=== PATIENT | male | born 1955 | race Caucasian/White ===

== ENCOUNTER 2021-08-22 19:34 | Emergency (ER) | payer OTHER, SELFPAY ==
[2021-08-22 20:02] VITALS: BP 159/99; PULSE 70; RESP 20; TEMP 36.6; O2SAT 97
[2021-08-22 20:16] LABS: Basophils Percent Auto 0.1 % (0.2-1.2); Hematocrit 45.7 % (42.0-52.0); Hemoglobin 15.9 g/dL (14.0-18.0); Immature Granulocyte Absolute 0.03 K/mm3 (0.00-0.031); Immature Granulocyte Percent A 0.4 % (0-0.5); Lymphocytes Absolute Auto 0.66 K/mm3 (0.9-3.2); Lymphocytes Percent Auto 9.5 % (18.3-44.2); Mean Corpuscular HGB Conc 34.8 g/dl (32-36); Mean Corpuscular Hemoglobin 30.7 pg (26-34); Mean Corpuscular Volume 88.2 fl (80-100); Monocytes Absolute Auto 0.5 K/mm3 (0.1-0.6); Monocytes Percent Auto 6.5 % (2.6-8.5); Neutrophils Absolute Auto 5.8 K/mm3 (1.3-6.7); Neutrophils Percent Auto 83.5 % (45.5-73.1); Platelet Count Result 292 k/mm3 (150-375); Red Blood Count 5.18 M/mm3 (4.6-6.20); Red Cell Distribution Width 12.1 % (11.5-14.5)
[2021-08-22 20:25] LABS: Alanine Aminotransferase 17 U/L (4-50); Alkaline Phosphatase 74 U/L (38-126); Anion Gap 10 mmol/L (8-16); Aspartate Amino Transferase 25 U/L (17-59); Bilirubin,Total 0.8 mg/dL (0.2-1.3); Blood Urea Nitrogen 16 mg/dL (9-20); Calcium 8.2 mg/dL (8.4-10.2); Carbon Dioxide 21 mmol/L (22-30); Chloride 96 mmol/L (98-107); Estimated CRCL calculation 92 ml/min; Estimated Glomerular Filt Rate > 60; Glucose 155 mg/dL (65-110); Lipase 60 U/L (23-300); Potassium 3.7 mmol/L (3.4-5.0); Sodium 127 mmol/L (137-145)
--- NOTE | 2021-08-22 21:53 | PC.NURSE ---
Pt ambulatory to intake and this RN was currently in triage w/ pt, pt states Im leaving, 2 hours is long enough, I am not waiting any longer. If I get worse I will come back, I can lay around sick at home. This RN apologized to pt about the wait time, and he states Its fine, but I am leaving. Pt ambulated out w/ steady gait.
== END 2021-08-22 22:04 | disposition left against medical advice (07) ==
LOC: ANHED 21:55
PROVIDERS: Emergency Provider Emergency Medicine; PCP Internal Medicine
DX: R11.2 Nausea with vomiting, unspecified (principal)
CPT/HCPCS: 36415; 80053; 83690; 85025; 99199

== ENCOUNTER 2021-08-23 14:08 | Inpatient (IN) | payer MEDICARE, OTHER, SELFPAY ==
[2021-08-23] VITALS (9 sets, daily range): BP systolic 114–159; BP diastolic 63–89; PULSE 86–106; RESP 18–24; TEMP 36.4–36.7; O2SAT 95–100; BMI 29.7
--- NOTE | ~2021-08-23 | XR_ITS ---
EXAMINATION: XR chest 1V portable DATE: 08/23/2021 14:40 INDICATION: Shortness of breath. Dizziness. TECHNIQUE: A single frontal view of the chest was obtained. COMPARISON: CT abdomen and pelvis 09/13/2018 FINDINGS: The chest demonstrates clear lungs without pneumonia, pleural effusion, or pneumothorax. Th e heart size is normal. IMPRESSION: 1. No acute cardiopulmonary disease. Reviewed, dictated and finalized at location B.
--- NOTE | ~2021-08-23 | CT_ITS ---
EXAMINATION: CT abdomen pelvis w con DATE: 08/23/2021 15:50 INDICATION: Epigastric pain TECHNIQUE: Computed tomography (CT) of the abdomen and pelvis was performed with 100 mL Omnipaque-350 intravenous contrast. Automated exposure control and iterative reconstruction technique were employe d. The dose-length product was 1061.54 mGy-cm. COMPARISON: 09/13/2018 FINDINGS: Patchy centrilobular groundglass opacities in the basilar segments of the bilateral lower lobes which could represent aspiration and/or pneumonia. Heart size is normal. No pericardial or pleural effusio n. There are numerous subcentimeter hypodense cysts scattered throughout the liver and both kidneys. Larger 2.4 cm parapelvic cyst at the right renal hilum. Gallbladder, spleen, pancreas and bilateral a drenal glands are normal. There are multiple small scattered diverticula along the sigmoid and descen ding colon without adjacent inflammatory change to suggest diverticulitis. Small bowel and appendix a re normal. Bladder is normal. Postoperative change of prior left inguinal hernia repair with unchange d small amount of fat within the left inguinal canal. No free intraperitoneal gas or fluid. No pathol ogically enlarged abdominal or pelvic lymphadenopathy. Mild lumbar levocurvature with severe lower tammy mbar spondylosis. Mild bilateral hip osteoarthritis. IMPRESSION: 1. No acute intra-abdominal/pelvic process. 2. Diverticulosis. Reviewed, dictated and finalized at location A.
--- NOTE | ~2021-08-23 | XR_ITS ---
EXAMINATION: XR chest 1V portable EXAM DATE: 08/25/2021 05:54 INDICATION: Influenza TECHNIQUE: Portable AP frontal chest x-ray was obtained. Comparison is made to prior examination from 08/23/2021. FINDINGS: Small amount of left basilar reticulonodular airspace disease. The lungs are otherwise kamar r. There are no pleural effusions. The cardiomediastinal silhouette is within normal limits. There is no pneumothorax suspected. There are mild bony degenerative changes. Mild hyperinflation. IMPRESSION: Interval development of small amount of left basilar reticulonodular airspace disease, co uld be acute infectious process. Reviewed, dictated and finalized at location A. IMPRESSION: Interval development of small amount of left basilar reticulonodula r airspace disease, could be acute infectious process.
--- NOTE | 2021-08-23 14:18 | ECG_ITS ---
Measurements Intervals [place] Rate: 103 P: 51 OK: 134 QRS: -83 QRSD: 102 T: 65 QT: 341 QTc: 448 Interpretive Statements SINUS TACHYCARDIA LEFT AXIS DEVIATION [QRS AXIS < -30] S1-S2-S3 PATTERN, CONSISTENT WITH PULMONARY DISEASE, RVH, OR NORMAL VARIANT INCOMPLETE RIGHT BUNDLE BRANCH BLOCK ABNORMAL ECG COMPARED TO ECG 09/13/2018 09:25:08 SINUS TACHYCARDIA NOW PRESENT Electronically Signed On 08-23-2021 18:14:33 CDT by David De León M.D.
[2021-08-23 15:05] LABS: Hematocrit 40.2 % (42.0-52.0); Hemoglobin 13.7 g/dL (14.0-18.0); Mean Corpuscular HGB Conc 34.1 g/dl (32-36); Mean Corpuscular Hemoglobin 30.8 pg (26-34); Mean Corpuscular Volume 90.3 fl (80-100); Mean Platelet Volume 10.1 fl (7.4-10.4); Platelet Count Result 412 k/mm3 (150-375); Red Blood Count 4.45 M/mm3 (4.6-6.20); Red Cell Distribution Width 12.3 % (11.5-14.5); White Blood Count 32.3 K/mm3 (4.5-10.0)
[2021-08-23] MEDS: ONDANSETRON INJ 4 MG/2 ML VIAL IV PUSH (15:11)
[2021-08-23 15:25] LABS: Band Neutrophils Percent 14 % (0-6); Lymphocytes Absolute Manual 1.29 K/mm3 (1.1-4.5); Monocytes Absolute Manual 1.61 K/mm3 (0.1-0.90); Monocytes Percent Manual 5 % (3-9); Neutrophils Absolute Manual 29.39 K/mm3 (1.3-6.7); Neutrophils Percent Manual 77 % (46-73); Platelet Estimate Increased (Adequate); Total Cells Counted 100
[2021-08-23 15:28] LABS: Alanine Aminotransferase 17 U/L (4-50); Albumin Level 3.5 g/dL (3.5-5.1); Alkaline Phosphatase 55 U/L (38-126); Anion Gap 13 mmol/L (8-16); Aspartate Amino Transferase 24 U/L (17-59); Bilirubin,Total 0.9 mg/dL (0.2-1.3); Blood Urea Nitrogen 31 mg/dL (9-20); Calcium 8.5 mg/dL (8.4-10.2); Carbon Dioxide 21 mmol/L (22-30); Chloride 98 mmol/L (98-107); Estimated CRCL calculation 52 ml/min; Estimated Glomerular Filt Rate 47; Glucose 221 mg/dL (65-110); Potassium 3.6 mmol/L (3.4-5.0); Sodium 132 mmol/L (137-145)
[2021-08-23] MEDS: SODIUM CHLORIDE 0.9% IV 1,000 ML 999 ML IV CONT ×2 (16:09→21:50)
[2021-08-23 16:58] LABS: Lactic Acid Reflex 2.7 mmol/L (0.7-2.1)
--- NOTE | 2021-08-23 17:01 | ED.GENADULT ---
HPI - General Adult General Chief complaint: Shortness of Breath/Dyspnea Stated complaint: flu like symptoms Time Seen by Provider: 08/23/21 14:30 Source: patient and family Mode of arrival: ambulatory Limitations: no limitations History of Present Illness HPI narrative: 66-year-old otherwise healthy not on any medication here with complaints of cough , shortness of breath, fever, abdominal pain for past 4 days. reports that his grand kids have been diagnosed with influenza. He also complains of nausea, vomiting and abdominal pain. Patient states he came to the ER yesterday but went back home without being evaluated. He denies any chest pain. Onset (ago): day(s) (4) Severity: moderate Quality: aching Relieving factors: none Associated symptoms: fever/chills, loss of appetite, nausea/vomiting and weakness Related Data Home Medications Medication Instructions Recorded Confirmed No Home Medications 08/23/21 08/23/21 Allergies Allergy/AdvReac Type Severity Reaction Status Date / Time No Known Allergies Allergy Unverified 08/23/21 12:31 Review of Systems Review of Systems: All systems reviewed & are unremarkable except as noted in HPI and below Constitutional: Constitutional: Reports no additional constitutional complaints Eyes: Eyes: Reports no additional eye complaints ENT: Reports system reviewed and no additional complaints, except as documented Cardiovascular: Cardiovascular: Reports no additional cardiovascular complaints Respiratory: Respiratory: Reports as per HPI Gastrointestinal: Gastrointestinal: Reports as per HPI Musculoskeletal: Musculoskeletal: Reports no additional musculoskeletal complaints Integumentary/Breasts: Skin/Breast: Reports system reviewed and no additional complaints, except as docu Exam Narrative: GENERAL: ill-appearing, well-nourished, and in no acute distress. HEAD: Normocephalic, atraumatic. EYES: PERRLA and EOMI. NECK: Supple. CHEST: Clear to auscultation. No respiratory distress. HEART: Regular rate and rhythm. No murmur heard. Normal peripheral pulses. ABDOMEN: Soft, epigastric tenderness, nondistended . EXTREMITIES: Normal range of motion. No edema. SKIN: Warm, dry, no rash. NEURO: No focal deficits. Alert and oriented x3. PSYCH: Normal mood and affect. Course Course Emergency Course: 66-year-old ill-appearing with a history of abdominal pain, chest pain associated with nausea and vomiting he was hypotensive upon arrival we will give him bolus of normal saline do routine lab work including CT of the abdomen. Patient blood pressure has improved with IV fluids. Informed him about his lab work, CT findings. We will admit him to the hospital. Vital Signs Vital signs: Vital Signs Temperature 36.4 C 08/23/21 14:11 Pulse Rate 106 H 08/23/21 14:11 Respiratory Rate 24 H 08/23/21 14:11 Blood Pressure 115/77 08/23/21 14:11 Pulse Oximetry 100 08/23/21 14:11 Temperature 36.4 C 08/23/21 14:11 Pulse Rate 86 08/23/21 15:30 Respiratory Rate 18 08/23/21 15:30 Blood Pressure 114/63 08/23/21 15:30 Pulse Oximetry 95 08/23/21 15:30 Medical Decision Making Vital Signs Vital Signs: Vital Signs Temperature 36.4 C 08/23/21 14:11 Pulse Rate 106 H 08/23/21 14:11 Respiratory Rate 24 H 08/23/21 14:11 Blood Pressure 115/77 08/23/21 14:11 Pulse Oximetry 100 08/23/21 14:11 Temperature 36.4 C 08/23/21 14:11 Pulse Rate 86 08/23/21 15:30 Respiratory Rate 18 08/23/21 15:30 Blood Pressure 114/63 08/23/21 15:30 Pulse Oximetry 95 08/23/21 15:30 Lab Data Lab results reviewed: Yes I reviewed the patient's lab results. Result diagrams: 08/23/21 14:33 08/23/21 14:33 Labs: Lab Results 08/23/21 08/23/21 08/23/21 Range/Units 14:33 14:33 16:22 WBC 32.3 H (4.5-10.0) K/mm3 RBC 4.45 L (4.6-6.20) M/mm3 Hgb 13.7 L (14.0-18.0) g/dL Hct 40.2 L (42.0-52.0) % MCV 90.3
[2021-08-23 17:11] LABS: SARS-CoV-2 RNA PCR Negative
--- NOTE | 2021-08-23 18:45 | ADMGEN ---
This patient, Dallas Burch, was admitted to IMU Room 214-01. Patient/family oriented to hospital policies and general routines including ID bracelet, bed and alarms, visiting hours, pain management, procedures, bathroom and other care routines, personal items, smoking policy, room service/diet, and visiting hours. Information on how to activate the Rapid Response Team has been discussed. Patient/Family are encouraged to report perceived risks to care and to ask questions if they do not understand what they are told or what they should do.
[2021-08-23 19:45] LABS: Reflex Lactic Acid Yes or No Add Lactic
[2021-08-23 20:14] LABS: Lactic Acid 2.2 mmol/L (0.7-2.1)
--- NOTE | 2021-08-23 22:07 | PM.IMHP ---
H&P: HPI History of Present Illness Date/Time: 08/23/21 21:20 Chief Complaint: Flu like symptoms Narrative: 66-year-old male with without significant past medical history who presented to the ER with flu-like symptoms for 4 days. The patient reports that he is generally dose was not feeling well with cough that became productive of yellow sputum. He had some associated shortness of breath. His grand children have tested positive influenza and he watched the children when they were L so that the parents could go to work. The patient thought that he was safe from the flu since he was vaccinated. His cough is been associated with some shortness of breath. He endorsed having some nausea. He later told the nurses that he had been having some vomiting and that some of his emesis had been blood-streaked. He had denied having any changes in his bowel habits at the time of my evaluation but after I left the room the patient had a diarrheal stool that was mixed with blood. He had a CT of the abdomen pelvis performed in the ER that was negative for any acute process. He denies any chest pain. He has been having a generalized headache and myalgias. He has not had much to eat in the last several days due to anorexia. He reports generalized weakness. The patient was reportedly hypotensive upon arrival to the ER but this was not documented under vital signs. The patient has not been hypotensive since receiving fluids. He reports that he still feels dehydrated. Patient does have a significant smoking history but quit smoking 16 years ago. He denies a history of COPD or frequent bronchitis. PENDING SALE TO [facility] Past Medical History Medical History (Updated 08/24/21 @ 02:43 by Jeana Gray DO) No significant past medical history Surgical History Surgical History (Updated 08/24/21 @ 02:28 by Jeana Gray DO) History of left inguinal hernia repair History of umbilical hernia repair Family History Family History Mother Acute myocardial infarction, Onset Age: 49 Father , in his 70's Diabetes mellitus Peripheral vascular disease End stage renal disease on dialysis due to type 2 diabetes mellitus Sibling Acute myocardial infarction Social History Social History (Updated 08/24/21 @ 02:36 by Jeana Gray DO) Social History: Code status: Full code Surrogate decision maker: Smoking packs per day: 1.5 Smoking cigarettes per day: 30.0 Years smoked: 30 Smoking pack-years: 45.00 Smoking status: Former smoker Tobacco type: cigarettes Second hand tobacco smoke exposure: Yes Additional smoking assessment comments: pt smokes pot 4x week Alcohol intake: former Substance use: current Substance use type: marijuana and hallucinogens Last use: 08/22/21 Living arrangements: with family Additional living arrangements comments: He has 2 children and 7 grandchildren. He lives with his of 40 years. 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 Gender identity (if verbalized by the patient): Male Sexual Orientation (if Verbalized by the Patient): Straight or Heterosexual Spiritual care concerns: No Agree to blood products: Yes Meds Home Medications and Allergies Home Medications Medication Instructions Recorded Confirmed Type No Home Medications 08/23/21 08/23/21 History Allergies Allergy/AdvReac Type Severity Reaction Status Date / Time No Known Allergies Allergy Unverified 08/23/21 12:31 Vital Signs Vital Signs - 24 hr 08/23/21 14:11 08/23/21 14:30 08/23/21 15:30 Temperature 97.6 F Pulse Rate 106 H 102 H 86 Respiratory Rate 24 H 18 Blood Pressure 115/77 114/63 Pulse Oximetry 100 95 08/23/21 17:57 08/23/21 18:31 08/23/21 20:00 Temperature 97.9 F 97.9 F Pulse Rate 86 86 101 H Respiratory Rate 18 18 20
[2021-08-23] MEDS: SODIUM CHLORIDE 0.9% IV 1,000 ML 125 ML IV CONT (23:13)
[2021-08-24] VITALS (20 sets, daily range): BP systolic 108–143; BP diastolic 62–85; PULSE 69–119; RESP 16–20; TEMP 36.8–37.3; O2SAT 93–100; BMI 30.8
[2021-08-24] MEDS: PANTOPRAZOLE SODIUM IV 40 MG VIAL IV PUSH ×3 (01:39→21:02)
[2021-08-24] MEDS: IPRATROPIUM BR 0.02% INH SOLN 0.5 MG/2.5 ML VIAL INHALATION ×4 (02:15→20:53)
[2021-08-24] MEDS: ALBUTEROL SULFATE NEB 2.5 MG/0.5 ML INH 5 MG INHALATION ×4 (02:15→20:53)
--- NOTE | 2021-08-24 03:49 | PC.NURSE ---
Pt. had bowel movement dark stool with red blood noted. Pt. asked how long has he had dark stools patient state it started today and and he vomitted earlier and the vomit had blood in it. Dr. Gray informed and ordered protonix and ordered to hold blood thinners at this time. Protonix IV push over 10 minutes given as ordered no adverse reactions noted. Will monitor next cbc result and patient for any changes.
[2021-08-24 04:50] LABS: Basophils Percent Auto 0.2 % (0.2-1.2); Hematocrit 30.4 % (42.0-52.0); Hemoglobin 10.3 g/dL (14.0-18.0); Immature Granulocyte Absolute 0.09 K/mm3 (0.00-0.031); Immature Granulocyte Percent A 0.5 % (0-0.5); Lymphocytes Absolute Auto 1.38 K/mm3 (0.9-3.2); Lymphocytes Percent Auto 8.3 % (18.3-44.2); Mean Corpuscular HGB Conc 33.9 g/dl (32-36); Mean Corpuscular Hemoglobin 31.1 pg (26-34); Mean Corpuscular Volume 91.8 fl (80-100); Mean Platelet Volume 9.9 fl (7.4-10.4); Monocytes Absolute Auto 1.1 K/mm3 (0.1-0.6); Monocytes Percent Auto 6.4 % (2.6-8.5); Neutrophils Percent Auto 84.6 % (45.5-73.1); Platelet Count Result 309 k/mm3 (150-375); Red Blood Count 3.31 M/mm3 (4.6-6.20); Red Cell Distribution Width 12.4 % (11.5-14.5); White Blood Count 16.6 K/mm3 (4.5-10.0)
[2021-08-24 04:54] LABS: Lactic Acid Reflex 0.9 mmol/L (0.7-2.1)
[2021-08-24 05:14] LABS: Anion Gap 6 mmol/L (8-16); Blood Urea Nitrogen 66 mg/dL (9-20); Calcium 7.6 mg/dL (8.4-10.2); Carbon Dioxide 21 mmol/L (22-30); Chloride 106 mmol/L (98-107); Estimated CRCL calculation 61 ml/min; Estimated Glomerular Filt Rate > 60; Glucose 124 mg/dL (65-110); Potassium 3.5 mmol/L (3.4-5.0); Sodium 133 mmol/L (137-145)
[2021-08-24 05:56] LABS: Hemoglobin A1C 5.2 % (<5.7)
[2021-08-24] MEDS: SODIUM CHLORIDE 0.9% IV 1,000 ML 125 ML IV CONT (12:44)
--- NOTE | 2021-08-24 13:42 | PM.IMPN ---
Progress Note: A&P Assessment and Plan (1) Influenza A: Code(s): J10.1 - Influenza due to other identified influenza virus with other respiratory manifestations Status: Acute Assessment and Plan: Patient presents with flu-like symptoms and was diagnosed with influenza A. he did receive the influenza vaccine last fall. He was COVID negative here. He is up-to-date on his COVID vaccines. Patient appears to be tolerating his current infection well. He remains on room air. Will start Tamiflu. (2) Sepsis: Qualifiers: Acute renal failure type: unspecified Sepsis acute organ dysfunction status: with acute organ dysfunction Sepsis type: sepsis due to unspecified organism Severe sepsis acute organ dysfunction type: acute renal failure Severe sepsis shock status: without septic shock Qualified Code(s): A41.9 - Sepsis, unspecified organism; R65.20 - Severe sepsis without septic shock; N17.9 - Acute kidney failure, unspecified Code(s): A41.9 - Sepsis, unspecified organism Status: Acute Assessment and Plan: Patient was mildly tachycardic and tachypneic on admission. He had a significant elevation of his white count to 32 K with left shift and bandemia. Chest x-ray was clear. CT of the abdomen showed patchy centrilobular ground-glass opacities in the basilar segments the bilateral lower lobes probably related to influenza but cannot exclude secondary bacterial infection. he has been started on Rocephin, azithromycin and vancomycin. White count is trending downward. Follow up on blood cultures. Check sputum culture. (3) Pneumonia: Qualifiers: Laterality: right Lung location: lower lobe of lung Pneumonia type: due to unspecified organism Qualified Code(s): J18.9 - Pneumonia, unspecified organism Code(s): J18.9 - Pneumonia, unspecified organism Status: Acute Assessment and Plan: As above. Continue IV antibiotics and nebulizer treatments. (4) GI bleed: Code(s): K92.2 - Gastrointestinal hemorrhage, unspecified Status: Acute Assessment and Plan: Remnants of the stool noted in the bathroom appears patient is having blackish stools. Suspect upper GI bleed. CT Abd/Pelvis negative for any acute process. Continue Protonix IV Q 12. GI consulted. Stool guaiac ordered. Will check H&H and trend. (5) Anemia: Code(s): D64.9 - Anemia, unspecified Status: Acute Assessment and Plan: Patient with normal baseline hemoglobin. Hemoglobin was 15.9 on the day prior to admission. Hemoglobin was 13.7 has dropped to 10.3. Some of this drop is related to the IV fluids. Suspect acute blood loss anemia. Check stool guaiac. Trend H&H. Transfuse as necessary. (6) Acute kidney injury: Code(s): N17.9 - Acute kidney failure, unspecified Status: Acute Assessment and Plan: BUN was 31 with creatinine 1.5. Renal function was normal the day before. With IV fluids, creatinine has trended down to 1.1. BUN has climbed to 66 related to the GI bleed and not from renal failure. Continue IV fluids for today. (7) DVT prophylaxis: Code(s): Z29.9 - Encounter for prophylactic measures, unspecified Status: Acute Assessment and Plan: SCDs Additional Plan Hyperglycemia - Glucose was 243 on admission. A1c 5.2. Hyperglycemia related to stress response. Follow for now Subjective Date/time seen: 08/24/21 13:42 Interval history: 66yo healthy male here for flu-like symptoms and found to have influenza A. Patient continues to have black stools and has had 6 today. He is 'feeling okay'. No abd pain. Black stools began last night. Was having nausea and vomiting with streaks of blood in vomitus. No NSAID use. Not on blood thinners or ASA. Exam Narrative: AF 98.3 108/62 86 18 95% ra Gen - NARD lying almost flat in bed Chest - CTA bilaterally, nml RR CV - RRR S1/S2. Tele showing no significa
[2021-08-24 14:17] LABS: Hematocrit 30.4 % (42.0-52.0); Hemoglobin 10.2 g/dL (14.0-18.0)
[2021-08-24] MEDS: OSELTAMIVIR PHOSPHATE 75 MG CAPSULE PO ×2 (16:58→21:01)
--- NOTE | 2021-08-24 17:24 | WPDGICN ---
Assessment and Plan Assessment and plan (1) Melena: Code(s): K92.1 - Melena Status: Acute Assessment and Plan: influenza with sepsis complicated with new onset of GIB on iv protonix and will proceed with egd tomorrow PUD, esophagitis, MWT, etc (2) Acute blood loss anemia: Code(s): D62 - Acute posthemorrhagic anemia Status: Acute Assessment and Plan: trend h/h and transfuse if hb<7 on iv protonix (3) Coffee ground emesis: Code(s): K92.0 - Hematemesis Status: Acute (4) Influenza A: Code(s): J10.1 - Influenza due to other identified influenza virus with other respiratory manifestations Status: Acute Assessment and Plan: medical treatment, on antiviral (5) Sepsis: Qualifiers: Sepsis type: sepsis due to unspecified organism Sepsis acute organ dysfunction status: with acute organ dysfunction Severe sepsis acute organ dysfunction type: acute renal failure Acute renal failure type: unspecified Severe sepsis shock status: without septic shock Qualified Code(s): A41.9 - Sepsis, unspecified organism; R65.20 - Severe sepsis without septic shock; N17.9 - Acute kidney failure, unspecified Code(s): A41.9 - Sepsis, unspecified organism Status: Acute Assessment and Plan: leukocytosis trending down (6) GI bleed: Code(s): K92.2 - Gastrointestinal hemorrhage, unspecified Status: Acute (7) Acute kidney injury: Code(s): N17.9 - Acute kidney failure, unspecified Status: Acute Assessment and Plan: improved GI Consult Note Consult date/time: 08/24/21 17:24 Reason for consult: melena, coffee ground emesis HPI: Dallas Burch is a 66 year old male here with flu-like symptoms for 4 days. He took care of grandchildren who had influenza and few days ago started feeling fatigue with malaise, chills, cough with sputum and muscle aching. He also had episode of nausea with one emesis of blood-streaked and fell like passing out at home. He came to hospital, diagnosed with influenza A, wbc 30k, hb normal but slowly drifting down to 10, also had FLAKO with creatinine 1.5. He was admitted with diagnosis of sepsis, influenza and GIB. On iv protonix. Denies abdominal pain. Never had EGD and denies previous gib. Had colonoscopy about [address] a/p reviewed, no acute process. Review of Systems Constitutional: Constitutional: Reports lethargy and Reports weakness Eyes: Eyes: Denies blurry vision ENT: Reports Normal hearing present Cardiovascular: Cardiovascular: Denies chest pain Respiratory: Respiratory: Reports cough Gastrointestinal: Gastrointestinal: Reports melena and Reports hematemesis Genitourinary: Genitourinary: Denies dysuria Musculoskeletal: Musculoskeletal: Reports arthralgias Integumentary/Breasts: Skin/Breast: Denies dry skin Neurologic: Denies confusion Comments: near syncope Psychiatric: Psychiatric: Denies anxiety [facility] Past Medical History Medical History (Updated 08/24/21 @ 17:28 by Jensen Cortez MD) Acute blood loss anemia Coffee ground emesis Melena No significant past medical history Surgical History Surgical History (Updated 08/24/21 @ 02:28 by Jeana Gray DO) History of left inguinal hernia repair History of umbilical hernia repair Family History Family History Mother Acute myocardial infarction, Onset Age: 49 Father , in his 70's Diabetes mellitus Peripheral vascular disease End stage renal disease on dialysis due to type 2 diabetes mellitus Sibling Acute myocardial infarction Social History Social History (Updated 08/24/21 @ 02:36 by Jeana Gray DO) Social History: Code status: Full code Surrogate decision maker: Smoking packs per day: 1.5 Smoking cigarettes per day: 30.0 Years smoked: 30 Smoking pack-years: 45.00 Smo
[2021-08-24 18:17] LABS: IFOB Positive Control Positive; Immunochemical Fecal Occult Bl Positive (N)
[2021-08-24 18:31] LABS: Hematocrit 29.2 % (42.0-52.0); Hemoglobin 9.8 g/dL (14.0-18.0)
[2021-08-25] VITALS (19 sets, daily range): BP systolic 81–153; BP diastolic 56–92; PULSE 59–84; RESP 15–21; TEMP 36.4–37.2; O2SAT 93–100
[2021-08-25] MEDS: SODIUM CHLORIDE 0.9% IV 1,000 ML 125 ML IV CONT (01:14)
[2021-08-25 01:22] LABS: Hematocrit 25.9 % (42.0-52.0); Hemoglobin 8.8 g/dL (14.0-18.0)
[2021-08-25] MEDS: ALBUTEROL SULFATE NEB 2.5 MG/0.5 ML INH 5 MG INHALATION ×2 (02:26→20:35)
[2021-08-25] MEDS: IPRATROPIUM BR 0.02% INH SOLN 0.5 MG/2.5 ML VIAL INHALATION ×2 (02:27→20:35)
[2021-08-25 05:54] LABS: Basophils Percent Auto 0.5 % (0.2-1.2); Eosinophils Percent Auto 0.2 % (0-4.4); Hematocrit 24.2 % (42.0-52.0); Hemoglobin 8.3 g/dL (14.0-18.0); Immature Granulocyte Absolute 0.05 K/mm3 (0.00-0.031); Immature Granulocyte Percent A 0.6 % (0-0.5); Lymphocytes Absolute Auto 1.54 K/mm3 (0.9-3.2); Lymphocytes Percent Auto 18.5 % (18.3-44.2); Mean Corpuscular HGB Conc 34.3 g/dl (32-36); Mean Corpuscular Volume 90.3 fl (80-100); Mean Platelet Volume 9.1 fl (7.4-10.4); Monocytes Absolute Auto 0.6 K/mm3 (0.1-0.6); Monocytes Percent Auto 6.6 % (2.6-8.5); Neutrophils Absolute Auto 6.1 K/mm3 (1.3-6.7); Neutrophils Percent Auto 73.6 % (45.5-73.1); Platelet Count Result 215 k/mm3 (150-375); Red Blood Count 2.68 M/mm3 (4.6-6.20); Red Cell Distribution Width 12.5 % (11.5-14.5); White Blood Count 8.3 K/mm3 (4.5-10.0)
[2021-08-25 06:13] LABS: Alanine Aminotransferase 10 U/L (4-50); Albumin Level 2.4 g/dL (3.5-5.1); Alkaline Phosphatase 40 U/L (38-126); Anion Gap 5 mmol/L (8-16); Aspartate Amino Transferase 16 U/L (17-59); Bilirubin,Total 0.3 mg/dL (0.2-1.3); Blood Urea Nitrogen 26 mg/dL (9-20); Calcium 7.1 mg/dL (8.4-10.2); Carbon Dioxide 23 mmol/L (22-30); Chloride 106 mmol/L (98-107); Estimated CRCL calculation 75 ml/min; Estimated Glomerular Filt Rate > 60; Glucose 98 mg/dL (65-110); Potassium 3.1 mmol/L (3.4-5.0); Sodium 134 mmol/L (137-145)
[2021-08-25] MEDS: POTASSIUM CHLORIDE 20 MEQ PACKET (FOR LIQUID) 40 MEQ PO (08:43)
[2021-08-25] MEDS: PANTOPRAZOLE SODIUM IV 40 MG VIAL IV PUSH ×2 (08:45→20:26)
--- NOTE | 2021-08-25 11:23 | PM.IMPN ---
Progress Note: A&P Assessment and Plan (1) Influenza A: Code(s): J10.1 - Influenza due to other identified influenza virus with other respiratory manifestations Status: Acute Assessment and Plan: Patient presents with flu-like symptoms and was diagnosed with influenza A. He did receive the influenza vaccine last fall and is UTD with COVID vaccine. He was COVID negative here. Patient tolerating his current infection well. He remains on room air. Continue Tamiflu. (2) Sepsis: Qualifiers: Acute renal failure type: unspecified Sepsis acute organ dysfunction status: with acute organ dysfunction Sepsis type: sepsis due to unspecified organism Severe sepsis acute organ dysfunction type: acute renal failure Severe sepsis shock status: without septic shock Qualified Code(s): A41.9 - Sepsis, unspecified organism; R65.20 - Severe sepsis without septic shock; N17.9 - Acute kidney failure, unspecified Code(s): A41.9 - Sepsis, unspecified organism Status: Acute Assessment and Plan: Patient was mildly tachycardic and tachypneic on admission. He had a significant elevation of his white count to 32K with left shift and bandemia. Chest x-ray on admission was clear. CT of the abdomen showed patchy centrilobular ground-glass opacities in the basilar segments of the bilateral lower lobes probably related to influenza but cannot exclude secondary bacterial infection. He was started on Rocephin, azithromycin and vancomycin. White count trended to normal. Blood cultures NGTD. Continue abx but narrow coverage. (3) Pneumonia: Qualifiers: Laterality: right Lung location: lower lobe of lung Pneumonia type: due to unspecified organism Qualified Code(s): J18.9 - Pneumonia, unspecified organism Code(s): J18.9 - Pneumonia, unspecified organism Status: Acute Assessment and Plan: As above. Continue IV antibiotics and nebulizer treatments. Narrow coverage. (4) GI bleed: Code(s): K92.2 - Gastrointestinal hemorrhage, unspecified Status: Acute Assessment and Plan: Patient is having blackish stools. Suspect upper GI bleed. CT Abd/Pelvis negative for any acute process. Hgb was normal prior to admission but 13 on admission and now has dropped to 8.3. Continue Protonix IV Q 12. GI consulted with plan for EGD today. Stool guaiac ordered. Continue to trend HH. (5) Anemia: Code(s): D64.9 - Anemia, unspecified Status: Acute Assessment and Plan: Patient with normal baseline hemoglobin. Hemoglobin was 15.9 on the day prior to admission. Hemoglobin was 13.7 on admission has dropped to 8.3. Some of this drop is related to the IV fluids. Suspect acute blood loss anemia. Check stool guaiac. Trend H&H. Transfuse as necessary. Stop IV fluids. (6) Acute kidney injury: Code(s): N17.9 - Acute kidney failure, unspecified Status: Acute Assessment and Plan: BUN was 31 with creatinine 1.5 on admission. Renal function was normal the day before. With IV fluids, creatinine has trended down to 1.0. BUN climbed to 66 related to the GI bleed but better today at 31. Stop IV fluids (7) DVT prophylaxis: Code(s): Z29.9 - Encounter for prophylactic measures, unspecified Status: Acute Assessment and Plan: SCDs Additional Plan Hyperglycemia - Glucose was 243 on admission. A1c 5.2. Hyperglycemia related to stress response. Glucose normal now. Follow for now Subjective Date/time seen: 08/25/21 11:23 Interval history: 66yo healthy male here for flu-like symptoms and found to have influenza A. No chest pain or shortness of breath. Minimal cough. Slept off and on last night. Denies nausea or vomiting. No abdominal pain. Not having black stools and is just passing flatus now. Exam Narrative: AF 98.0 142/69 62 20 96% ra Gen - NARD lying almost flat in bed Chest - coarse BS with bibasialr i
[2021-08-25 13:00] LABS: Hematocrit 24.6 % (42.0-52.0); Hemoglobin 7.9 g/dL (14.0-18.0)
[2021-08-25] MEDS: LACTATED RINGERS 1,000 ML 150 ML IV CONT ×2 (13:11→14:06)
[2021-08-25] MEDS: ACETAMINOPHEN 325 MG TABLET 650 MG PO ×2 (15:51→20:29)
[2021-08-25 17:57] LABS: Hemoglobin 8.2 g/dL (14.0-18.0)
--- NOTE | 2021-08-25 18:24 | PC.NURSE ---
Pt recieved from IMU room 214 to room 248. Patient oriented to the room.
[2021-08-25] MEDS: DOXYCYCLINE HYCLATE 100 MG TABLET PO (20:26)
[2021-08-26] VITALS (7 sets, daily range): BP systolic 135–151; BP diastolic 44–78; PULSE 71–85; RESP 12–16; TEMP 36.2–36.3; O2SAT 97–100
[2021-08-26 00:52] LABS: Hematocrit 23.8 % (42.0-52.0); Hemoglobin 7.9 g/dL (14.0-18.0)
[2021-08-26] MEDS: IPRATROPIUM BR 0.02% INH SOLN 0.5 MG/2.5 ML VIAL INHALATION ×2 (02:20→07:47)
[2021-08-26] MEDS: ALBUTEROL SULFATE NEB 2.5 MG/0.5 ML INH 5 MG INHALATION ×2 (02:20→07:47)
--- NOTE | 2021-08-26 07:17 | WPDANESPN ---
Anes - Prog Note Post-Op Date/Time: 08/26/21 07:17 Cardiovascular status: other (anemia) Respiratory status: normal Airway patency: baseline Mental status: baseline Post-Op hydration status: normal Vital Signs: Last Vital Signs Temp 97.4 F L 08/26/21 03:24 Pulse 72 08/26/21 03:24 Resp 16 08/26/21 03:24 BP 135/78 08/26/21 03:24 Pulse Ox 97 08/26/21 03:24 Pain Score (VAS): 05/15 I/O: Intake & Output 08/25/21 08/25/21 08/26/21 15:59 23:59 07:59 Intake Total 1200 950 200 Output Total 600 Balance 600 950 200 Laboratory Tests 08/26/21 00:24 08/25/21 05:37 08/25/21 08/25/21 08/26/21 12:31 17:53 00:24 Hgb 7.9 L 8.2 L 7.9 L Hct 24.6 L 24.0 L 23.8 L Post-procedural complaints: none Patient Feedback: Patient satisfied with anesthetic care.
[2021-08-26 07:33] LABS: Anion Gap 3 mmol/L (8-16); Blood Urea Nitrogen 14 mg/dL (9-20); Calcium 7.6 mg/dL (8.4-10.2); Carbon Dioxide 28 mmol/L (22-30); Chloride 106 mmol/L (98-107); Estimated CRCL calculation 74 ml/min; Estimated Glomerular Filt Rate > 60; Glucose 90 mg/dL (65-110); Potassium 3.9 mmol/L (3.4-5.0); Sodium 137 mmol/L (137-145)
[2021-08-26] MEDS: DOXYCYCLINE HYCLATE 100 MG TABLET PO (07:40)
[2021-08-26] MEDS: PANTOPRAZOLE SODIUM IV 40 MG VIAL IV PUSH (07:41)
[2021-08-26 07:43] LABS: Hematocrit 24.2 % (42.0-52.0); Hemoglobin 8.1 g/dL (14.0-18.0); Mean Corpuscular HGB Conc 33.5 g/dl (32-36); Mean Corpuscular Hemoglobin 30.8 pg (26-34); Mean Platelet Volume 9.5 fl (7.4-10.4); Platelet Count Result 238 k/mm3 (150-375); Red Blood Count 2.63 M/mm3 (4.6-6.20); Red Cell Distribution Width 12.3 % (11.5-14.5); White Blood Count 7.2 K/mm3 (4.5-10.0)
[2021-08-26] MEDS: ACETAMINOPHEN 325 MG TABLET 650 MG PO (07:44)
--- NOTE | 2021-08-26 12:26 | WPDGIPROGNO ---
Progress Note: A&P Assessment and Plan (1) Gastric ulcer: Code(s): K25.9 - Gastric ulcer, unspecified as acute or chronic, without hemorrhage or perforation Status: Acute Assessment and Plan: gastric ulcer with gastritis yesterday, no more active bleeding he can go home with protonix twice daily egd in 3 months to assess healing of ulcer do not use nsaid's (2) Acute blood loss anemia: Code(s): D62 - Acute posthemorrhagic anemia Status: Acute Assessment and Plan: hb stable now (3) Coffee ground emesis: Code(s): K92.0 - Hematemesis Status: Acute Assessment and Plan: resolved (4) Melena: Code(s): K92.1 - Melena Status: Acute (5) Influenza A: Code(s): J10.1 - Influenza due to other identified influenza virus with other respiratory manifestations Status: Acute Assessment and Plan: overall better and on treatment (6) SIRS (systemic inflammatory response syndrome): Code(s): R65.10 - Systemic inflammatory response syndrome (SIRS) of non-infectious origin without acute organ dysfunction Status: Acute Subjective Date/time seen: 08/26/21 12:26 Interval history: no more bleeding, feeling ok and tolerating diet. He is feeling like going home Review of Systems Review of Systems: All systems reviewed & are unremarkable except as noted in HPI and below Exam Const: General: comfortable and no acute distress HENMT: General nose exam: Normal nares present Eyes: General: appearance normal, both eyes and all related structures Neck: Neck: no JVD Resp: Auscultation: clear to auscultation bilaterally Cardio: Rate: regular rate Rhythm: regular rhythm GI: Inspection: non-distended GI Palp: Yes Soft to palpation Skin: General skin exam: normal color Neuro: General: gait normal Speech: normal speech Extrem: General: normal to inspection Psych: Mental Status: mental status grossly normal Objective Data Vital Signs Vital Signs: Vital Signs - 24 hr 08/25/21 13:05 08/25/21 14:00 08/25/21 14:21 Temperature 98.2 F Pulse Rate 64 66 80 Respiratory Rate 21 H 17 Blood Pressure 137/73 81/56 L Pulse Oximetry 99 100 08/25/21 14:31 08/25/21 14:41 08/25/21 18:41 Temperature 99.0 F Pulse Rate 84 84 66 Respiratory Rate 18 15 16 Blood Pressure 130/92 H 136/84 140/68 Pulse Oximetry 100 98 97 08/25/21 19:12 08/25/21 20:38 08/25/21 20:42 Temperature 98.8 F Pulse Rate 69 72 Respiratory Rate 17 16 Blood Pressure 136/75 Pulse Oximetry 96 96 08/25/21 20:45 08/26/21 02:22 08/26/21 02:28 Temperature Pulse Rate 79 71 73 Respiratory Rate 16 16 16 Blood Pressure Pulse Oximetry 08/26/21 03:24 08/26/21 07:47 08/26/21 07:55 Temperature 97.4 F L Pulse Rate 72 72 75 Respiratory Rate 16 16 16 Blood Pressure 135/78 Pulse Oximetry 97 08/26/21 08:00 Temperature Pulse Rate 72 Respiratory Rate 16 Blood Pressure Pulse Oximetry 97 Intake/Output Intake/Output: Intake & Output 08/23/21 08/24/21 08/25/21 08/26/21 23:59 23:59 23:59 23:59 Intake Total 1050 5240 3150 1010 Output Total 0 600 Balance 1050 5240 2550 1010 Meds/Results Medications: Active Medications Generic Name Dose Route Start Last Admin Trade Name Freq PRN Reason Stop Dose Admin Acetaminophen 650 mg 08/23/21 16:26 08/26/21 07:44 Acetaminophen 325 Mg Tablet PO 650 mg Q4H PRN Administration Mild Pain (1-3) or Fever Albuterol 5 mg 08/24/21 02:00 08/26/21 07:47 Albuterol Sulfate Neb 2.5 Mg/0.5 Ml Inh INHALATION 5 mg Q6HRT KALLIE Administration Doxycycline Hyclate 100 mg 08/25/21 21:00 08/26/21 07:40 Doxycycline Hyclate 100 Mg Tablet PO 100 mg Q12HR KALLIE Administration Ceftriaxone Sodium/Dextrose 1 gm in 50 mls @ 100 mls/hr 08/23/21 21:00 08/25/21 20:55 Rocephin 1 Gm/D5w 50 Ml IVPB Infused Q24H KALLIE Infusion Ipratropium [place] 0.5 mg 08/24/21 02:00
--- NOTE | 2021-08-26 13:33 | PC.NURSE ---
called MD Taylor able discharging pt, pt wishing to be discharged today, seen by
--- NOTE | 2021-08-26 14:13 | PM.DS ---
DS: Admitting Diagnosis Discharge Date 08/26/2021 Admitting Diagnosis Flu like symptoms DS: Discharge Diagnosis Discharge Diagnosis (1) Influenza A: Code(s): J10.1 - Influenza due to other identified influenza virus with other respiratory manifestations Status: Acute Assessment and Plan: Patient presents with flu-like symptoms and was diagnosed with influenza A. He did receive the influenza vaccine last fall and is UTD with COVID vaccine. He was COVID negative here. Patient tolerating his current infection well. Pt remains well and on room air. Continue Tamiflu for 5 days. (2) Sepsis: Qualifiers: Acute renal failure type: unspecified Sepsis acute organ dysfunction status: with acute organ dysfunction Sepsis type: sepsis due to unspecified organism Severe sepsis acute organ dysfunction type: acute renal failure Severe sepsis shock status: without septic shock Qualified Code(s): A41.9 - Sepsis, unspecified organism; R65.20 - Severe sepsis without septic shock; N17.9 - Acute kidney failure, unspecified Code(s): A41.9 - Sepsis, unspecified organism Status: Acute Assessment and Plan: Patient was mildly tachycardic and tachypneic on admission. He had a significant elevation of his white count to 32K with left shift and bandemia. Chest x-ray on admission was clear. CT of the abdomen showed patchy centrilobular ground-glass opacities in the basilar segments of the bilateral lower lobes probably related to influenza but cannot exclude secondary bacterial infection. He was started on Rocephin, azithromycin and vancomycin. White count trended to normal. Blood cultures NGTD. continue oral doxycycline at home for 7 days. (3) Pneumonia: Qualifiers: Laterality: right Lung location: lower lobe of lung Pneumonia type: due to unspecified organism Qualified Code(s): J18.9 - Pneumonia, unspecified organism Code(s): J18.9 - Pneumonia, unspecified organism Status: Acute Assessment and Plan: As above. Continue oral doxycycline on discharge. (4) GI bleed: Code(s): K92.2 - Gastrointestinal hemorrhage, unspecified Status: Acute Assessment and Plan: Patient is having blackish stools. Suspect upper GI bleed. CT Abd/Pelvis negative for any acute process. GI consulted pt had scope showing gastric ulcer adviced no NSAIDS and take ppi and bland foods at home. Follow up with GI in 3 months time. (5) Anemia: Code(s): D64.9 - Anemia, unspecified Status: Acute Assessment and Plan: Patient with normal baseline hemoglobin.Hb is 8 on discharge. Pt advised green veg and can take iron daily (6) Acute kidney injury: Code(s): N17.9 - Acute kidney failure, unspecified Status: Resolved Assessment and Plan: creat is 1 (7) DVT prophylaxis: Code(s): Z29.9 - Encounter for prophylactic measures, unspecified Status: Acute Assessment and Plan: SCDs DS: Summary Hospital Course Hospital Course: 66-year-old male with without significant past medical history who presented to the ER with flu-like symptoms for 4 days. The patient reports that he is generally dose was not feeling well with cough that became productive of yellow sputum. He had some associated shortness of breath. His grand children have tested positive influenza and he watched the children when they were L so that the parents could go to work. The patient thought that he was safe from the flu since he was vaccinated. His cough is been associated with some shortness of breath. He endorsed having some nausea. He later told the nurses that he had been having some vomiting and that some of his emesis had been blood-streaked. He had denied having any changes in his bowel habits at the time of my evaluation but after I left the room the patient had a diarrheal stool that was mixed with blood. He had a CT of the abdomen pelvis perfor
== END 2021-08-26 14:34 | disposition home or self-care (01) | DRG 871 ==
LOC: ANHED 15:22 → ANHIMU 17:09 → ANH2MED 08-25 17:23
PROVIDERS: Internal Medicine; Internal Medicine Gastroenterology; Admitting Provider Family Medicine; Emergency Provider Family Medicine; PCP Internal Medicine; Visit Provider Family Medicine
PROC: 0DJ08ZZ Inspection of Upper Intestinal Tract, Via Natural or Artificial Opening Endoscopic (ICD-10-PCS; CPT 43235; principal; 2021-08-25 13:30)
DX: A41.89 Other specified sepsis (principal); J11.00 Influenza due to unidentified influenza virus with unspecified type of pneumonia; K29.01 Acute gastritis with bleeding; D62 Acute posthemorrhagic anemia; N17.9 Acute kidney failure, unspecified; R65.20 Severe sepsis without septic shock; E86.0 Dehydration; Z20.822 Contact with and (suspected) exposure to COVID-19; Z87.891 Personal history of nicotine dependence
CPT/HCPCS: 36415; 71045; 74177; 80048; 80053; 82274; 83036; 83605; 83735; 84100; 85014; 85018; 85025; 85027; 87040; 87081; 87804; 88305; 88342; 93005; 94640; 96361; 96365; 96366; 96367; 96368; 96375; 96376; 99285; A9270; C9113; C9803; G0378; J0456; J0696; J2405; J2543; J2704; J3370; J7030; J7120; Q9967; U0003; U0005

== ENCOUNTER 2025-04-02 15:15 | Inpatient (IN) | payer MEDICARE, OTHER, SELFPAY ==
[2025-04-02] VITALS (11 sets, daily range): BP systolic 148–191; BP diastolic 72–99; PULSE 56–71; RESP 18–22; TEMP 36.6–37.1; O2SAT 97–100; BMI 34.4
--- NOTE | ~2025-04-02 | XR_ITS ---
EXAMINATION: XR chest 1V portable 04/05/2025 10:58 INDICATION: Cough and congestion PROCEDURE: AP portable chest COMPARISON: 04/02/2025 FINDINGS: The lungs are clear. The cardiomediastinal silhouette is within normal limits. There are no pleural effusions. There is no pneumothorax suspected. IMPRESSION: 1: NO ACUTE CARDIOPULMONARY DISEASE. Reviewed, dictated and finalized at location I. CAL LANGUAGE SPECIALIST
--- NOTE | ~2025-04-02 | US_ITS ---
US renal BI 04/05/2025 12:26 Procedure: Realtime transabdominal ultrasound of the kidneys and bladder. Indication: Acute renal insufficiency Comparison: CT dated 08/23/2021 Findings: Renal echotexture is normal bilaterally without hydronephrosis, contour deforming mass or renal calculus. There is a right renal cyst measuring 2.7 cm. The right kidney measures 10.1 cm and left kidney measures 11.3 cm. Bladder within normal limits. Impression: 1: Right renal cyst measuring 2.7 cm. Reviewed, dictated and finalized at location I. GER UTILITIES Impression: 1: Right renal cyst measuring 2.7 cm.
--- NOTE | ~2025-04-02 | XR_ITS ---
EXAMINATION: XR chest 1V portable COMPARISON: No comparisons available. HISTORY: chest pain FINDINGS: The lungs are clear, no effusion. No pneumothorax. Heart is normal size. Mediastinal and hilar contours are within normal limits. Bony thorax no acute abnormality. Miscellaneous: None Impression: No acute cardiopulmonary abnormality. Reviewed, dictated and finalized at location P. R SALES Impression: No acute cardiopulmonary abnormality.
--- NOTE | 2025-04-02 15:24 | ECG_ITS ---
Test Date: 2025-04-02 15:56:32 Measurements Intervals Caldwell Rate: 67 P: 81 VT: 185 QRS: -81 QRSD: 103 T: 63 QT: 396 QTc: 419 Interpretive Statements SINUS RHYTHM INCOMPLETE RIGHT BUNDLE BRANCH BLOCK [90+ ms QRS DURATION, TERMINAL R IN V1/V2, 40+ ms S IN I/aVL/V4/V5/V6] LEFT ANTERIOR FASCICULAR BLOCK [QRS AXIS <= -45, QR IN I, RS IN II] ABNORMAL ELECTROCARDIOGRAM No previous ECG available for comparison Electronically Signed On 04-03-2025 08:01:14 MOPPER by Almas Rahman M.D.
[2025-04-02 15:43] LABS: Hematocrit 42.3 % (42.0-52.0); Hemoglobin 14.2 g/dL (14.0-18.0); Immature Granulocyte Percent A 0.4 % (0-0.5); Lymphocytes Absolute Auto 1.40 K/mm3 (0.9-3.2); Mean Corpuscular HGB Conc 33.6 g/dl (32-36); Mean Corpuscular Hemoglobin 31.4 pg (26-34); Mean Corpuscular Volume 93.6 fl (80-100); Nucleated Red Blood Cells Absolute Auto 0.000 K/mm3 (0.0-0.012); Nucleated Red Blood Cells Perc 0.0 % (0.0-0.2); Platelet Count Result 232 k/mm3 (150-375); Red Blood Count 4.52 M/mm3 (4.6-6.20); White Blood Count 9.5 K/mm3 (4.5-10.0)
[2025-04-02 16:00] LABS: Alanine Aminotransferase 25 U/L (6-50); Albumin Level 3.8 g/dL (3.5-5.1); Alkaline Phosphatase 62 U/L (38-126); Anion Gap 4 mmol/L (4-12); Aspartate Amino Transferase 28 U/L (17-59); Bilirubin,Total 0.6 mg/dL (0.2-1.3); Blood Urea Nitrogen 29 mg/dL (9-20); Calcium 8.8 mg/dL (8.4-10.2); Carbon Dioxide 28 mmol/L (22-30); Chloride 104 mmol/L (98-107); Estimated CRCL calculation 44 ml/min; Estimated Glomerular Filt Rate 39; Glucose 168 mg/dL (65-110); Potassium 4.2 mmol/L (3.4-5.0); Sodium 136 mmol/L (137-145); Total Protein 6.4 g/dL (6.3-8.2)
--- OUTSIDE RECORDS SUMMARY | 2025-04-02 16:07 | XMS_ITS | Clinical Summary ---
Author Organization [facility] [address] Address [address] [place] [address] Care Team Providers Care Peanut Shaker Name Role Phone Rio Rodgers MD Primary Care Provider [phone] Allergies Active Allergy Reactions Criticality Noted Date Comments Hydrochlorothiazide Rash Medium 07/12/2020 Medications ketoconazole (NIZORAL) 2 % cream Apply topically daily 30 g 2 5 Active telmisartan (MICARDIS) 80 mg tablet TAKE 1 TABLET BY MOUTH DAILY 90 tablet 1 5 Active levothyroxine (SYNTHROID) 25 mcg tablet TAKE 1 TABLET BY MOUTH EVERY DAY 90 tablet 1 5 Active spironolactone (ALDACTONE) 25 mg tablet Take 1 tablet (25 mg total) by mouth daily 90 tablet 4 3 03/08/20 Discontinu ed(Therapy completed) benzonatate (Tessalon Perles) 100 mg capsuleIndicati ons:Cough Take 1 capsule (100 mg total) by mouth 4 (four) times a day as needed for cough 20 capsule 1 4 03/08/20 Discontinu ed(Therapy completed) clotrimazole-be tamethasone (LOTRISONE) cream APPLY TOPICALLY TO AFFECTED AREA TWICE A DAY 30 g 4 03/08/20 25 Discontinu ed(Therapy completed) Active Problems Problem Noted Date Diagnosed Date Hypothyroidism 03/08/2025 Dermaphytid 10/29/2023 Assessment & Plan (10/29/2023 2:50 PM CDT): Clotrimazole/Betamethasone BID Blow dryer to area after bathing Essential hypertension 03/07/2023 Assessment & Plan (02/14/2024 8:39 AM CDT): BP 128/78 by my exam. We will continue present Rx. See back 6 months. Labs at that time. Ulcer of antrum of stomach 10/03/2021 Overview (10/03/2021): Added automatically from request for surgery [id number] History of colon polyps 06/23/2020 Overview (06/23/2020): Added automatically from request for surgery [id number] Resolved Problems Problem Noted Date Diagnosed Date Resolved Date Pneumonia due to infectious organism 09/05/2021 10/29/2023 Assessment & Plan (09/05/2021 8:05 AM CDT): Asymptomatic at present, refer for cxr Acute gastric ulcer with hemorrhage 09/05/2021 10/29/2023 Assessment & Plan (09/05/2021 8:06 AM CDT): Cauterized at [facility] emergently. Needs follow up in 8 weeks to document clearing. Refer to gi, check cbc Dermatitis 07/12/2020 10/29/2023 Encounters Date Type Department Care Team Description 03/12/2025 Nurse Triage [facility] [address] [place] [phone] Kanika Méndez CMA 03/09/2025 2:[address] [place] - 03/09/2025 11:[address] [place] Hospital Encounter [address] [address] Hypothyroidism, unspecified type; Acute pain of left shoulder Discharge Disposition: Discharge to home or self care 03/09/2025 Results Follow-Up [facility] [address] [place] [phone] Rio Rodgers MD XR Shoulder Left 2 or More Views, TSH, T4, free, PSA diagnostic 03/08/2025 3:[address] [place] Office Visit [facility] [address] [facility] [address] [place] [phone] Rio Rodgers MD Essential hypertension (Primary Dx); Hypothyroidism, unspecified type; Elevated PSA; Acute pain of left shoulder from Last 3 Months Immunizations Immunization Administration Dates Next Due COVID-19 MRNA (MODERNA) .5 M L (50 MCG) VACCINE (12 YEARS AND UP) 01/25/2023 Influenza, Quad, Adjuvantated, Intramuscular ,02/07/2022 Influenza, Quadrivalent, Hig h Dose, Preservative Free, Intrr 02/23/2021 Influenza, Quadrivalent, Split, Intramuscular Influenza, Quadrivalent, Spl it, Preservative Free, Intramuscular 02/11/2020 Influenza, Trivalent, Adjuvanted, Intramuscular 01/20/2024 Influenza, Trivalent, High D ose, Split, Preservative Free, Intramuscular 02/11/2025 Moderna SARS-CoV-2 Monovalent Vaccination (12+ Y RS) 06/08/2020 Pfizer SARS-CoV-2 Monovalent Vaccination (12+ Yrs) ROMERO-READY TO USE 10/19/2021 Pneumococcal Conjugate Pcv20 06/17/2023 Pneumococcal Polysaccharide PPV23 02/07/2022 Tdap 06/03/2015,06/02/2015 ZOSTER Recombinant 08/08/2021,06/01/2021 Surgical History Surgery Date Site/Laterality Comments HERNIA REPAIR UPPER GASTROINTESTINAL ENDOSCOPY Medical History Medical History Date Comments Drug abuse Hypertension Ulcer of gastric fundus 08/2021 Family History Medical History Relation Name Comments Diabetes Father Hyperlipidemia Father Hypertension Father Heart attack Mother Relation Name Status Comments Brother Father Mother Social History Tobacco Use Types Packs/Day Years Used Date Smoking Tobacco: Former Cigarettes Q uit: 2000 Smokeless Tobacco: Never Tobacco Cessation:Counseling Given: Not Answered Alcohol Use Standard Drinks/Week Comments Not Currently 0 (1 standard drink = 0.6 oz pur e alcohol) AUDIT-C Answer Date Recorded Q1: How often do you have a drink containing alc ohol? Never 11/07/2021 Average Number of Drinks Not on file 022 Q3: How often do you have si x or more drinks on one occasion? Never 11/07/2021 Sex and Gender Information Value Date Recorded Sex Assigned at Not on file Legal Sex Male 5:[address] [place] Gender Identity Not on file Sexual Orientation Not on file Last Filed Vital Signs Vital Sign Reading Time Taken Comments Blood Pressure 153/91 03/08/2025 3:[address] [place] Pulse 67 03/08/2025 3:[address] [place] Temperature 36.8 C (98.2 F) 11/07/2021 9:03 AM CDT Respiratory Rate 27 11/07/2021 9:15 AM CDT Oxygen Saturation 96% 10/29/2023 2:28 PM CDT Inhaled Oxygen Concentration - - Weight 108.4 kg (239 lb) 03/08/2025 3:[address] [place] Height 175.3 cm (5' 9) 03/08/2025 3:[address] [place] Body Mass Index 35.29 03/08/2025 3:[address] [place] Plan of Treatment Health Maintenance Due Date Last Done Comments Depression Screening 1955 Hepatitis B Screening 07/07/1973 Abdominal Aortic Aneurysm (A AA) Screen 07/07/2020 Well Visit 65+ 05/31/2022 05/31/2021 Fall Risk Assessment 11/07/2022 11/07/2021 DTaP/Tdap/Td Vaccine (3 - Td or Tdap) 06/03/2025 06/03/2015, 06/02/2015 Covid-19 Vaccine (2024-06 6 season) 2025 02/11/2025, 01/20/2024, 01/25/2023, Additional history exists Prostate Cancer Screening-PSA 03/08/2027, 11/10/2024, 08/24/2024, Additional history exists Colon Cancer Screening-Colonoscopy 07/07/20302020 Hepatitis C Screening Completed 01/31/2021 Zoster Vaccine Completed 08/08/2021, 06/01/2021 Pneumococcal vaccine 65+ Completed 06/17/2023, 10/0 09/2021 Influenza Vaccine Completed 02/11/2025, , 01/25/2023, Additional history exists Medical Devices Implanted Type Area Volleyball Assistant Coach Device Identifier Shelf Expiration Date Model / Serial / Lot Mesh N/A: Abdomen Procedures Procedure Name Priority Date/Time Associated Diagnosis Comments XR SHOULDER LEFT 2 OR MORE VIEWS Schedule Routine, Read Routine (OP Routine) 03/09/2025 2:[address] [place] Hypothyroidism, unspecified type Acute pain of left shoulder PSA DIAGNOSTIC Routine 03/08/2025 3:[address] [place] Hypothyroidism, unspecified type Elevated PSA T4, FREE Routine 03/08/2025 3:[address] [place] Hypothyroidism, unspecified type TSH Routine 03/08/2025 3:[address] [place] Hypothyroidism, unspecified type HEPATITIS C ANTIBODY Routine 01/31/2021 2:35 PM CDT History of recreational drug use COLONOSCOPY 07/07/2020 10:[address] [place] from Last 3 Months or Most Recently Relevant to Health Maintenance Results * XR Shoulder Left 2 or More Views (03/09/2025 2:[address] [place]) Anatomical Region Laterality Modality Upper Extremities, Shoulder Left Comp uted Radiography 03/09/2025 4:[address] [place] Impressions 03/09/2025 4:[address] [place] Mild osteoarthritic changes. Electronically signed by: Joseph Chakraborty MD Narrative 03/09/2025 4:[address] [place] EXAMINATION: XR SHOULDER LEFT 2 OR MORE VIEWS HISTORY: shoulder pain. TECHNIQUE: 4 views of the left shoulder COMPARISON: none FINDINGS: There is no fracture or dislocation. The glenohumeral relationship is normal. There are mild osteoarthritic changes of the acromioclavicular and glenohumeral joints. The visualized portions of the left hemithorax are unremarkable. Procedure Note Joseph Chakraborty MD - 03/09/2025 EXAMINATION: XR SHOULDER LEFT 2 OR MORE VIEWS HISTORY: shoulder pain. TECHNIQUE: 4 views of the left shoulder COMPARISON: none FINDINGS: There is no fracture or dislocation. The glenohumeral relationship is normal. There are mild osteoarthritic changes of the acromioclavicular and glenohumeral joints. The visualized portions of the left hemithorax are unremarkable. IMPRESSION: Mild osteoarthritic changes. Electronically signed by: Joseph Chakraborty MD us Rio Rodgers MD IMG XR PROCEDURES Final Resul t * TSH (03/08/2025 3:[address] [place]) TSH 3.49 0.27 - 4.20 uIU/mL [facility] Blood 03/08/2025 3:[address] [place] 03/08/2025 4:[address] [place] us Rio Rodgers MD LAB BLOOD ORDERABLES Final Re sult Performing Organization Address [facility]/ZIP Co de Phone Number JOSSELINE WILSON [address] [facility] [address] [place] [address] * T4, free (03/08/2025 3:[address] [place]) Free T4 1.12 0.93 - 1.70 ng/dL [facility] Blood 03/08/2025 3:[address] [place] 03/08/2025 4:[address] [place] us Rio Rodgers MD LAB BLOOD ORDERABLES Final Re sult Performing Organization Address [facility] Co de Phone Number JOSSELINE RADERDA [address] [facility] [address] * PSA diagnostic (03/08/2025 3:[address] [place]) PSA, Total 3.2 0.0 - 4.0 ng/mL [facility] Blood 03/08/2025 3:[address] [place] 03/08/2025 4:[address] [place] us Rio Rodgers MD LAB BLOOD ORDERABLES Final Re sult Performing Organization Address City/[facility]/ZIP Co de Phone Number JOSSELINE RADERDA [address] [facility] [address] * Hepatitis C antibody (01/31/2021 2:35 PM CDT) Hep C Ab Nonreactive Nonreactive [facility] Comment:Antibodies to HCV no t detected. Does NOT exclude the possibility of recent exposure to HCV. Blood 01/31/2021 2:35 PM CDT 01/31/2021 3:20 PM CDT Huber Nieves MD LAB MICROBIOLOGY - [facility] DEISY Edited Result - Final [facility] Department [place] [address] * COLONOSCOPY (07/07/2020 10:[address] [facility]) Anatomical Region Laterality Modality Other Narrative Procedure Note Yanique Robertson MD - 07/07/2020 10:20 AM CST [facility] Patient Name: [place] Burch Procedure Date: 07/07/2020 10:20 AM Date of : 1955 Admit Type: Outpatient Age: 65 Gender: Male Attending MD: Yanique Robertson M.D. Room: [facility] ENDOSCOPY ROOM 9 Note Status: Finalized Procedure: Colonoscopy Indications: High risk colon cancer surveillance: Personalhistory of colonic polyps, Last colonoscopy 5 years ago Referring MD: Rio Rodgers M.D. Providers: Yanique Robertson M.D. Medicines: Monitored Anesthesia Care Complications: No immediate complications. Estimated Blood Loss: Estimated blood loss: none. Procedure: Pre-Anesthesia Assessment: - The risks and benefits of the procedure and the sedation options and risks were discussed with the patient. All questions were answered and informed consent was obtained. - Immediately prior to administration ofmedications, the patient was re-assessed for adequacy to receive sedatives. The benefits, risks and alternatives of theprocedure and sedation were discussed and informed consentwas obtained. All questions were answered. Please referto the signed informed consent document in the medical record. The scope was passed under direct vision.The [id number] endoscope was introduced through the anus and advanced to the cecum, identified by appendiceal orifice and ileocecal valve. The colonoscopy was performed without difficulty. The patient tolerated the procedure well. The qualityof the bowel preparation was evaluated using the BBPS ([place] Bowel Preparation Scale) with scores of:Right Colon = 2 (minor amount of residual staining, small fragments of stool and/or opaque liquid, but mucosa seen well), Transverse Colon = 2 (minor amount of residual staining, small fragments of stool and/or opaque liquid, but mucosa seen well) and Left Colon= 2 (minor amount of residual staining, smallfragments of stool and/or opaque liquid, but mucosa seenwell). The total BBPS score equals 6. The quality of the bowel preparation was good. The bowel preparationused was Miralax via split dose instruction. The qualityof the bowel preparation was good. Findings: Two sessile, non-bleeding polyps were found in the ascending colon.The polyps were 2 to 3 mm in size. These polyps were removed with a cold snare. Resection and retrieval were complete. A few diverticula were found in the sigmoid colon. Internal hemorrhoids were found on retroflexion. The exam was otherwise without abnormality on direct and retroflexion views. Impression: - Two 2 to 3 mm, non-bleeding polyps in theascending colon, removed with a cold snare. Resected and retrieved. - The examination was otherwise normal on directand retroflexion views. Recommendation: - You should get a call with you biopsy resultswithin 5-7 days. If you do not hear from us regarding your biopsy results within 5-7 days, please call [phone] ([phone]). - Repeat colonoscopy 5 years - In the unusual situation that you developabdominal pain, bleeding or other significant problems in the days following this procedure please [phone]). After hours and evenings please call [phone] and speak to the GI fellow superintendent transportation. Please tell them that Dr. Robertson did yourprocedure and that your were instructed to have the fellowcall me or the physician covering for me to discuss the management of your condition. If you have an urgent problem, please go to the nearest emergency roomand have the ER doctor call my office during the day or the GI Fellow after hours and weekends to arrange admission or transfer to our facility. Attending Participation: I personally performed the entire procedure. Electronically signed by Yanique Robertson MD Yanique Robertson M.D. 07/07/2020 10:45:16 AM . Number of Addenda: 0 Note Initiated On: 07/07/2020 10:20 AM Recognized by the [employer] for promoting quality in endoscopy us Yanique Robertson MD ENDOSCOPY PROCEDURE S Final Result from Last 3 Months or Most Recently Relevant to Health Maintenance Insurance MEDICARE [facility] PPO MEDICARE [facility] PPO [facility] PPO [facility] PPO MEDICARE Advance Directives For more information, please contact: [phone] * Full Code (Latest Code Status on File) Date Activated Date Inactivated Comments 11/07/2021 8:08 AM 11/07/2021 2:05 PM * Full Code Date Activated Date Inactivated Comments 07/07/2020 9:13 AM 07/07/2020 3:50 PM Care Teams Peanut Shaker Relationship Specialty Start Date End Date Rio Rodgers MD PCP - General Internal Medicine 05/23/20
--- OUTSIDE RECORDS SUMMARY | 2025-04-02 16:07 | XMS_ITS | Clinical Summary ---
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 Roller Name Role Phone Unavailable Primary Care Provider Unavailabl e Allergies No known active allergies Medications No known medications Social History Tobacco Use Types Packs/Day Years Used Date Smoking Tobacco: Never Assessed Sex and Gender Information Value Date Recorded Sex Assigned at Not on file Legal Sex Male 10:25 AM CDT Gender Identity Not on file Sexual Orientation Not on file Plan of Treatment Health Maintenance Due Date Last Done Comments Hepatitis C Virus (HCV) Screening 1955 TdaP Immunization 1955 Cologuard 07/07/2000 Colonoscopy 07/07/2000 Colorectal Cancer Screening 07/07/2000 Immunochemical Fecal Occult Blood 07/07/2000 Pneumococcal Immunization (5 0+ years) (1 of 1 - PCV) 07/07/2005 Zoster Immunization (1 of 2) 07/07/2005 Influenza Immunization (#1) 2025 SARS-COV-2 Immunization ( season) 2025 03/17/2021, 07/19/2020, 06/08/2020 Respiratory Syncytial Virus (RSV) Immunization (Adult) (1 - 1-dose 75+ series) 07/07/2030 Hepatitis B Immunization Aged Out No longer eligible based on patient's age to complete this topic Human Papillomavirus (HPV) Immunization Aged Out No longer eligible b ased on patient's age to complete this topic Meningococcal Immunization (ACWY) Aged Out No longer eligible b ased on patient's age to complete this topic Rotavirus Immunization Aged Out No lo nger eligible based on patient's age to complete this topic
[2025-04-02 16:15] LABS: NT Pro B Type Natriuretic Pept 344 pg/mL (19.9-100); Troponin I 0.561 ng/mL (0.000-0.034)
--- NOTE | 2025-04-02 16:17 | ECG_ITS ---
Test Date: 2025-04-02 16:23:13 Measurements Intervals [place] Rate: 61 P: 93 LA: 179 QRS: -75 QRSD: 112 T: 71 QT: 406 QTc: 410 Interpretive Statements SINUS RHYTHM INCOMPLETE RIGHT BUNDLE BRANCH BLOCK [90+ ms QRS DURATION, TERMINAL R IN V1/V2, 40+ ms S IN I/aVL/V4/V5/V6] LEFT ANTERIOR FASCICULAR BLOCK [QRS AXIS <= -45, QR IN I, RS IN II] ABNORMAL ECG Compared to ECG 04/02/2025 15:56:32 NO SIGNIFICANT CHANGE Electronically Signed On 04-03-2025 08:02:51 ACCOUNT MANAGER TRAINEE by Almas Rahman M.D.
[2025-04-02] MEDS: HEPARIN SOD/D5W 100 UNITS/ML 25,000 UNITS/250 ML BAG 10 UNITS IV CONT (16:37)
[2025-04-02 17:20] LABS: Hematocrit 42.0 % (42.0-52.0); Hemoglobin 14.3 g/dL (14.0-18.0); Immature Granulocyte Percent A 0.5 % (0-0.5); Lymphocytes Absolute Auto 1.19 K/mm3 (0.9-3.2); Mean Corpuscular HGB Conc 34.0 g/dl (32-36); Mean Corpuscular Hemoglobin 31.7 pg (26-34); Mean Corpuscular Volume 93.1 fl (80-100); Nucleated Red Blood Cells Absolute Auto 0.000 K/mm3 (0.0-0.012); Nucleated Red Blood Cells Perc 0.0 % (0.0-0.2); Platelet Count Result 240 k/mm3 (150-375); Red Blood Count 4.51 M/mm3 (4.6-6.20); White Blood Count 10.7 K/mm3 (4.5-10.0)
--- NOTE | 2025-04-02 17:23 | WPCEDHO ---
ED Hand Off Checklist All vitals saved: yes IV Site documented: yes All med administrations documented: yes Triage Note Triage Note pt to ED via [facility] with c 04/02/25 15:10 /o substernal chest pain that started around 1030 this morning along with L arm heaviness. EMS states pt had bout of vomiting around the same time the chest pain started. pt states 'I have been burping and feels like its indigestion pt states he has no prior cardiac hx but extensive family hx of LA. EMS administered 324 mg of aspirin in route to ED . pt has hx of hypertension, stating that he took his medication this morning. Allergies No Known Allergies Allergy (Verified 04/02/25 15:34) PER CODED ALLERGIES CONFIRMED WITH PT ON ARRIVAL TO PREOP 07/11/06 CONFIRMED WITH PT ON ARRIVAL TO PREOP 09/08/07 Family History (Last Reviewed 08/24/21 @ 02:31 by Jeana Gray DO) Mother Acute myocardial infarction Father Diabetes mellitus Peripheral vascular disease End stage renal disease on dialysis due to type 2 diabetes mellitus Sibling Acute myocardial infarction Active Medications including assessments/comments Heparin Sodium/Dextrose (Heparin Sodium/D5w 100 Units/Ml) 25,000 units in 250 mls @ 10 mls/hr IV CONT .Q24H KALLIE; Protocol Last Admin: 04/02/25 16:37 Dose: 1,000 units/hr, 10 mls/hr Documented By: STEPHANIE Co-signed By: LEWIS Infusion/Titration Document 04/02/25 16:37 LDD (Rec: 04/02/25 16:39 STEPHANIE [id number]) Co-signed By Jennifer Hirsch RN Intake IV Site Peripheral Access Right Lateral Forearm Container Volume 250 Waste Amount 0 Dosing Dose Rate 1,000 Infusion Rate 10 Increase/Decrease Started Elapsed Time Elapsed Time ( 0m minutes) Heparin Infusion Assessment Document 04/02/25 16:37 STEPHANIE (Rec: 04/02/25 16:39 STEPHANIE [id number]) Co-signed By Jennifer Hirsch RN Heparin Infusion Assessment Heparin Infusion Initiated Action Administered/Completed Medications Discontinued Medications Heparin Sodium (Porcine) (Heparin Sodium 5,000 Units/Ml Vial) 4,000 units IV PUSH ONCE ONE Stop: 04/02/25 16:19 Last Admin: 04/02/25 16:36 Dose: 4,000 units Documented By: STEPHANIE Co-signed By: LEWIS Interventions/Assessments Cardiac Monitoring Start: 04/02/25 15:26 Freq: Status: Active Protocol: Document 04/02/25 15:34 LDD (Rec: 04/02/25 15:34 LDD [id number]) Reports Analysis Manager Assessment Reports Analysis Manager Yes Applied Pulse Rate (60-100) 66 EKG Rythm Sinus Rhythm IV / Saline Lock, Insert Start: 04/02/25 15:26 Freq: Status: Active Protocol: Document 04/02/25 15:34 LDD (Rec: 04/02/25 15:34 LDD [id number]) IV Assessment Peripheral Access Right Lateral Forearm IV Catheter Access Initiated IV Insertion Date 04/02/25 IV Insertion Time 15:34 Catheter Gauge 20 IV Insertion 1 Attempts Ultrasound Used for No Placement IV Site Assessment WNL IV Care and WNL Maintenance PA: Cardiovascular Assessment Start: 04/02/25 15:26 Freq: Status: Active Protocol: Document 04/02/25 15:33 LDD (Rec: 04/02/25 15:34 LDD [id number]) Cardiovascular Assessment Cardiovascular Chest Pain,Chest Pressure Symptoms Skin Description Normal Color Heart Sounds Normal Jugular Vein None Distention PA: Respiratory Assessment Start: 04/02/25 15:26 Freq: Status: Active Protocol: Document 04/02/25 15:33 LDD (Rec: 04/02/25 15:34 LDD [id number]) Respiratory Assessment Symptoms None Effort Normal Pattern Regular Depth Normal Chest Expansion Symmetrical Adult Capillary Normal/Less than 2 Seconds Refill Cough Description None Sputum Amount None Oxygen Delivery Oxygen Delivery Room Air Pulse Oximetry (90- 100 100) Last Vital Signs Temperature 97.9 F 04/02/25 15:10 Pulse Rate 67 04/02/25 17:22 Respiratory Rate 20 04/02/25 17:22 Pulse Oximetry 98 04/02/25 17:22 Blood Pressure 191/97 H 04/02/25 17:22 Blood Pressure Mean 128 04/02/25 17:22 Oxygen Delivery Room Air 04/02/25 15:33 Weight 109.4 kg 04/02/25 15:10 Last Result - Abnormals Only WBC 10.7 K/mm3 (4.5-10.0) H 04/02/25 17:14 RBC 4.51 M/mm3 (4.6-6.20) L 04/02/25 17:14 Neut % (Auto) 79.6 % (45.5-73.1) H 04/02/25 17:14 Lymph % (Auto) 11.1 % (18.3-44.2) L 04/02/25 17:14 [place] # (Auto) 0.7 K/mm3 (0.1-0.6) H 04/02/25 17:14 Abs Immat Gran (auto) 0.05 K/mm3 (0.00-0.031) H 04/02/25 17:14 Absolute Neuts (auto) 8.6 K/mm3 (1.3-6.7) H 04/02/25 17:14 Sodium 136 mmol/L (137-145) L 04/02/25 15:36 BUN 29 mg/dL (9-20) H D 04/02/25 15:36 Creatinine 1.76 mg/dL (0.7-1.3) H 04/02/25 15:36 Estimated GFR 39 (59-) L 04/02/25 15:36 Glucose 168 mg/dL (65-110) H 04/02/25 15:36 Troponin I 0.561 ng/mL (0.000-0.034) H* 04/02/25 15:36 NT-Pro-B Natriuret Pep 344 pg/mL (19.9-100) H 04/02/25 15:36 Most Recent Suicide Severity Rating Suicide Severity Rating NO RISK INDICATED 04/02/25 15:10
[2025-04-02 17:41] LABS: INR 1.0; Prothrombin Time 13.1 Seconds (11.1-14.7)
[2025-04-02 17:42] LABS: Partial Thromboplastin Time 53.9 Seconds (22.3-36.8)
--- NOTE | 2025-04-02 17:47 | ED_ITS ---
HPI - Chest Pain General Chief Complaint: Chest Pain Stated Complaint: CP, indigestion Time Seen by Provider: 04/02/25 15:23 History of Present Illness HPI narrative: Patient went to the gym as usual, was working out and walking on a treadmill when he started having pain to his chest, felt sharp, left chest, did not radiate anywhere, has some tingling to his left hand, and some shortness of breath, he threw up once. He has not had symptoms like this before, no cardiac history other than high blood pressure. Got aspirin and he is now pain-free. Related Data Allergies Allergy/AdvReac Type Severity Reaction Status Date / Time No Known Allergies Allergy Verified 04/02/25 15:34 Review of Systems 2 Review of Systems: All systems reviewed & are unremarkable except as noted in HPI and below PMFSH Past Medical History Medical History (Updated 04/02/25 @ 17:53 by Suzan Cunha MD) Gastric ulcer Coffee ground emesis Acute blood loss anemia Melena No significant past medical history Surgical History Surgical History (Updated 08/24/21 @ 02:28 by Jeana Gray DO) History of left inguinal hernia repair History of umbilical hernia repair Family History Family History Mother Acute myocardial infarction, Onset Age: 49 Father , in his 70's Diabetes mellitus Peripheral vascular disease End stage renal disease on dialysis due to type 2 diabetes mellitus Sibling Acute myocardial infarction Social History Social History (Updated 08/24/21 @ 02:36 by Jeana Gray DO) Social History: Code status: Full code Surrogate decision maker: Smoking packs per day: 1.5 Smoking cigarettes per day: 30.0 Years smoked: 30 Smoking pack-years: 45.00 Smoking status: Former smoker Tobacco type: cigarettes Second hand tobacco smoke exposure: Yes Additional smoking assessment comments: pt smokes pot 4x week Alcohol intake: former Substance use: current Substance use type: marijuana and hallucinogens Last use: 08/22/21 Living arrangements: with family Additional living arrangements comments: He has 2 children and 7 grandchildren. He lives with his of 40 years. 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 Gender identity (if verbalized by the patient): Male Sexual Orientation (if Verbalized by the Patient): Straight or Heterosexual Spiritual care concerns: No Agree to blood products: Yes Exam 2 Narrative: EXAMINATION OF ORGAN SYSTEMS/BODY AREAS: Constitutional: Vital signs per nursing GENERAL:[No acute distress, non-toxic appearing.] HEAD: Normal with no signs of head trauma. EYES: EOMI, conjunctiva normal ENT: Hearing grossly intact LUNGS: Nonlabored breathing. HEART: [Regular rate and rhythm], normal equal pulses bilateral radial and DP ABD: [Soft], [nontender to palpation] EXT: Normal range of motion SKIN: [No rashes or lesions.] NEURO: [Alert and oriented x 3. No gross focal sensory or strength deficits.] PSYCH: Normal affect Course Vital Signs Vital signs: Vital Signs Temperature 97.9 F 04/02/25 15:10 Pulse Rate 67 04/02/25 15:10 Respiratory Rate 20 04/02/25 15:10 Blood Pressure 176/97 H 04/02/25 15:10 Pulse Oximetry 100 04/02/25 15:10 Oxygen Delivery Room Air 04/02/25 15:10 Temperature 97.9 F 04/02/25 15:10 Pulse Rate 67 04/02/25 17:22 Respiratory Rate 20 04/02/25 17:22 Blood Pressure 191/97 H 04/02/25 17:22 Pulse Oximetry 98 04/02/25 17:22 Oxygen Delivery Room Air 04/02/25 15:33 MDM - Chest Pain MDM Narrative Medical decision making narrative: ED COURSE AND MEDICAL DECISION MAKINM presenting with chest pain. EKG done in triage negative for acute ischemic changes. Cardiac workup is initiated. EKG: Performed in triage and interpreted by me. Normal sinus rhythm. Rate 67. Normal axis. DC normal. QRS duration normal. QTc normal. No pathologic Q waves. No ST segment elevation or depression to suggest acute ischemia. No RV strain pattern. There is quite a bit of artifact obscuring EKG On my exam patient is well-appearing in no distress, thankfully his chest pain has completely resolved after taking the aspirin, he has no symptoms currently. I did repeat an EKG, this is better baseline and on my independent interpretation does show sinus rhythm rate 61, DC 179, QRS 112, QTC 410, sinus rhythm, some possible very minimal elevations in inferior leads with possible depression in aVL, however does not meet STEMI criteria. I did discuss this with the bottled beverage inspector, who reviewed the EKG and felt to be benign. 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 I will start him on heparin drip. Discussed with hospitalist for admission. Patient agreeable to plan. Lab Data 04/02/25 17:14 04/02/25 15:36 Labs: Lab Results 04/02/25 Range/Units 15:36 WBC 9.5 (4.5-10.0) K/mm3 RBC 4.52 L (4.6-6.20) M/mm3 Hgb 14.2 D (14.0-18.0) g/dL Hct 42.3 (42.0-52.0) % MCV 93.6 (80-100) fl MCH 31.4 (26-34) pg MCHC 33.6 (32-36) g/dl RDW 11.9 (11.5-14.5) % Plt Count 232 (150-375) k/mm3 MPV 9.4 (7.4-10.4) fl Immature Gran % (Auto) 0.4 (0-0.5) % Neut % (Auto) 76.7 H (45.5-73.1) % Lymph % (Auto) 14.7 L (18.3-44.2) % [place] % (Auto) 5.6 (2.6-8.5) % Eos % (Auto) 1.8 (0-4.4) % Baso % (Auto) 0.8 (0.2-1.2) % Lymph # (Auto) 1.40 (0.9-3.2) K/mm3 [place] # (Auto) 0.5 (0.1-0.6) K/mm3 Eos # (Auto) 0.2 (0-0.3) K/mm3 Baso # (Auto) 0.1 (0.0-0.1) K/mm3 Abs Immat Gran (auto) 0.04 H (0.00-0.031) K/mm3 Absolute Neuts (auto) 7.3 H (1.3-6.7) K/mm3 Absolute Nucleated RBC 0.000 (0.0-0.012) K/mm3 Nucleated RBC % 0.0 (0.0-0.2) % Sodium 136 L (137-145) mmol/L Potassium 4.2 (3.4-5.0) mmol/L Chloride 104 (98-107) mmol/L Carbon Dioxide 28 (22-30) mmol/L Anion Gap 4 (4-12) mmol/L BUN 29 H D (9-20) mg/dL Creatinine 1.76 H (0.7-1.3) mg/dL Estim Creat Clear Calc 44 ml/min Estimated GFR 39 L (59 - ) Glucose 168 H (65-110) mg/dL Calcium 8.8 (8.4-10.2) mg/dL Total Bilirubin 0.6 (0.2-1.3) mg/dL AST 28 (17-59) U/L ALT 25 (6-50) U/L Alkaline Phosphatase 62 (38-126) U/L Troponin I 0.561 H* (0.000-0.034) ng/mL NT-Pro-B Natriuret Pep 344 H (19.9-100) pg/mL Total Protein 6.4 (6.3-8.2) g/dL Albumin 3.8 (3.5-5.1) g/dL Critical Care Time Critical Care Time Critical Care Time: Yes Total Critical Care Time: 31 Discharge Plan Discharge Clinical Impression: Acute non-ST elevation myocardial infarction (NSTEMI) Patient Disposition: Still a Patient Condition: Serious
--- NOTE | 2025-04-02 18:30 | ADMGEN ---
This patient, Dallas Burch, was admitted to IMU Room 211-01. Patient/family oriented to hospital policies and general routines including ID bracelet, bed and alarms, visiting hours, pain management, procedures, bathroom and other care routines, personal items, smoking policy, room service/diet, and visiting hours. Information on how to activate the Rapid Response Team has been discussed. Patient/Family are encouraged to report perceived risks to care and to ask questions if they do not understand what they are told or what they should do.
--- NOTE | 2025-04-02 18:41 | P.HP_ITS ---
H&P: HPI History of Present Illness Date/Time: 04/02/25 18:41 Chief Complaint: Chest pain Narrative: 69-year-old male with a past medical history of hypertension, peptic ulcer disease presents to the ED on 04/02/2025 with complaints of chest pain. Patient went to the gym this morning as he does every day. While on the treadmill he started to have sharp pain to his left chest with some associated tingling to his left hand. He has never experienced these symptoms before. The pain subsided and he finished his 6 mi walk. Patient went home and ate lunch. After a while he became diaphoretic with the return of the left chest pain with associated left arm heaviness. He ended up vomiting. His checked his blood pressure and found it to be elevated. EMS was subsequently called. Three hundred twenty-four aspirin given in route to the ED. Patient does have a history of hypertension but no known cardiac disease. He does have a strong family history with multiple family members with CAD. On arrival to the ED, patient's chest pain has subsided. Initial vital signs 176/97, HR 67, respirations 20, afebrile. Hematology without leukocytosis. Sodium 136, BUN 29, creatinine 1.76, GFR 39. Glucose 168. BNP 344. Initial troponin 0.561. Initial EKG read by ED provider reads normal sinus rhythm with normal axis. MD normal. QRS duration normal. QTc normal. No pathologic Q waves. No ST segment elevation or depression to suggest acute ischemia. No RV strain pattern. Chest x-ray with no acute cardiopulmonary abnormality. Review of Systems Review of Systems: All systems reviewed & are unremarkable except as noted in HPI and below [facility] Past Medical History Medical History (Updated 04/02/25 @ 23:14 by Annmarie Karimi APRN) Gastric ulcer Coffee ground emesis Acute blood loss anemia Melena No significant past medical history Surgical History Surgical History (Updated 08/24/21 @ 02:28 by Jeana Gray DO) History of left inguinal hernia repair History of umbilical hernia repair Family History Family History Mother Acute myocardial infarction, Onset Age: 49 Father , in his 70's Diabetes mellitus Peripheral vascular disease End stage renal disease on dialysis due to type 2 diabetes mellitus Sibling Acute myocardial infarction Social History Social History (Updated 08/24/21 @ 02:36 by Jeana Gray DO) Social History: Code status: Full code Surrogate decision maker: Smoking packs per day: 1.5 Smoking cigarettes per day: 30.0 Years smoked: 30 Smoking pack-years: 45.00 Smoking status: Former smoker Second hand tobacco smoke exposure: Yes Additional smoking assessment comments: pt smokes pot 4x week Alcohol intake: never Substance use: current Substance use type: marijuana Last use: 08/22/21 Lack of Transportation: No Lack of Food: Never True Current Housing: I Have Housing Concerned About Future Housing: No Difficulty Paying Gas/Electric Bills: No Difficulty Paying for Meds: No Currently Unemployed: No Education: High School Diploma/GED Difficulty w/ Childcare or Family Care: No Living arrangements: with family Additional living arrangements comments: He has 2 children and 7 grandchildren. He lives with his of 40 years. 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 Gender identity (if verbalized by the patient): Male Sexual Orientation (if Verbalized by the Patient): Straight or Heterosexual Spiritual care concerns: No Agree to blood products: Yes Meds Home Medications and Allergies Home Medications ?Medication ?Instructions ?Recorded ?Confirmed ?Type levothyroxine 25 mcg tablet 25 mcg PO DAILY 04/02/25 1 06/02/24 History telmisartan 80 mg tablet 80 mg PO DAILY 04/02/2503/07 History Allergies Allergy/AdvReac Type Severity Reaction Status Date / Time No Known Allergies Allergy Verified 04/02/25 18:31 Vital Signs Vital Signs - 24 hr 04/02/25 15:10 04/02/25 15:33 04/02/25 15:34 Temperature 97.9 F Pulse Rate 67 66 Respiratory Rate 20 Blood Pressure 176/97 H Pulse Oximetry 100 100 Oxygen Delivery Room Air Room Air 04/02/25 16:19 04/02/25 17:22 04/02/25 18:30 Temperature 98.0 F Pulse Rate 69 67 63 Respiratory Rate 18 20 22 H Blood Pressure 173/87 H 191/97 H 175/95 H Pulse Oximetry 97 98 99 Oxygen Delivery Exam Narrative: GENERAL: non-toxic appearing, in no acute distress. HEAD: Normocephalic, atraumatic. EYES: PERRLA. Conjunctivae clear. NOSE: Normal no drainage. THROAT: Pharynx clear, no exudate. NECK: Trachea midline. No adenopathy, no masses. RESPIRATORY: Airway patent, respirations nonlabored. CTA. CARDIOVASCULAR: Regular rate and rhythm GASTROINTESTINAL: Abdomen is soft and nontender. No organomegaly. Bowel sounds normal in all quadrants. GENITOURINARY: Defer MUSCULOSKELETAL: Moves all extremities. No gross deformities. SKIN: Warm, dry, normal color. NEURO: A&O X4. Speech clear PSYCHIATRIC: Normal interaction H&P: Results Labs Labs: Short CBC 04/02/25 04/02/25 Range/Units 15:36 17:14 WBC 9.5 10.7 H (4.5-10.0) K/mm3 Hgb 14.2 D 14.3 (14.0-18.0) g/dL Hct 42.3 42.0 (42.0-52.0) % Plt Count 232 240 (150-375) k/mm3 BMP 04/02/25 15:36 Sodium 136 L Potassium 4.2 Chloride 104 Carbon Dioxide 28 BUN 29 H D Creatinine 1.76 H Glucose 168 H Calcium 8.8 Cardiac Enzymes 04/02/25 Range/Units 15:36 Troponin I 0.561 H* (0.000-0.034) ng/mL Liver Function 04/02/25 Range/Units 15:36 Total Bilirubin 0.6 (0.2-1.3) mg/dL AST 28 (17-59) U/L ALT 25 (6-50) U/L Alkaline Phosphatase 62 (38-126) U/L Albumin 3.8 (3.5-5.1) g/dL Assessment and Plan Assessment and plan (1) Acute non-ST elevation myocardial infarction (NSTEMI): Code(s): I21.4 - Non-ST elevation (NSTEMI) myocardial infarction Status: Acute Assessment and Plan: Sharp pain to his left chest with some associated tingling to his left hand. Pain briefly subsided before returning with associated diaphoresis and left arm heaviness. Patient did vomit. - EKG, initial: read by ED provider reads normal sinus rhythm with normal axis. MD normal. QRS duration normal. QTc normal. No pathologic Q waves. No ST segment elevation or depression to suggest acute ischemia. No RV strain pattern. BUN 29, BNP 344. - EKG, repeat (1): Sinus rhythm, incomplete right BBB - CXR: No acute cardiopulmonary process - Troponin: 0.561 -1.930-3.550 - 324 ASA with EMS - SL nitro PRN - cardiology consulted, awaiting recs - started on heparin gtt - start atorvastatin 40 mg daily - lipid panel pending - A1c pending - telemetry monitoring (2) Acute kidney injury: Code(s): N17.9 - Acute kidney failure, unspecified Status: Acute Assessment and Plan: Cr 1.76 on admission. baseline creatinine 1.0 to 1.1. Patient appears euvolemic on exam. -continue to trend renal function (3) Hypothyroidism: Qualifiers: Hypothyroidism type: unspecified Qualified Code(s): E03.9 - Hypothyroidism, unspecified Code(s): E03.9 - Hypothyroidism, unspecified Status: Chronic Assessment and Plan: Continue levothyroxine (4) Hypertension: Qualifiers: Hypertension type: primary hypertension Qualified Code(s): I10 - Essential (primary) hypertension Code(s): I10 - Essential (primary) hypertension Status: Chronic Assessment and Plan: Continue telmisartan Plan Diet: Heart healthy GI prophylaxis: NA DVT prophylaxis: Heparin gtt lines/drains: PIV Fluids: NA Code status: Full Quality VTE Prophylaxis VTE prophylaxis: pharmacologic ordered Hospitalist MIPS Advance Care Plan I have confirmed that the patient's Advanced Care Plan is present, code status is documented, or surrogate decision maker is listed in patient medical record.: Yes Medication Reconciliation I have utilized all available resources to obtain, update and review the patients current medications (includes all prescriptions, OTC, herbals, cannabis, and nutritional supplements).: Yes
[2025-04-02 19:29] LABS: Troponin I 1.930 ng/mL (0.000-0.034)
[2025-04-02] MEDS: METOPROLOL TARTRATE 12.5 MG TABLET PO (20:27)
--- NOTE | 2025-04-02 22:19 | ECG_ITS ---
Test Date: 2025-04-02 22:32:41 Measurements Intervals [place] Rate: 63 P: 0 OR: 0 QRS: 269 QRSD: 149 T: 80 QT: 438 QTc: 451 Interpretive Statements LOW JUNCTIONAL RHYTHM RIGHT BUNDLE BRANCH BLOCK ABNORMAL ECG Compared to ECG 04/02/2025 16:23:13 JUNCTIONAL RHYTHM REPLACES SINUS RHYTHM Electronically Signed On 04-03-2025 08:10:44 NAVY AIRSPACE OFFICER by Almas Rahman M.D.
[2025-04-02 22:48] LABS: Partial Thromboplastin Time 44.0 Seconds (22.3-36.8)
[2025-04-02 23:04] LABS: Troponin I 3.550 ng/mL (0.000-0.034)
[2025-04-03] VITALS (14 sets, daily range): BP systolic 105–149; BP diastolic 59–84; PULSE 50–89; RESP 16–21; TEMP 36.4–36.8; O2SAT 95–99
--- NOTE | 2025-04-03 | ECHO_ITS ---
Patient Info Name: Dallas Burch Age: 69 years : 1955 Gender: Male Ht: 70 in Wt: 240 lbs BSA: 2.36 m2 HR: 49 bpm Heart Rhythm: Sinus Rhythm Technical Quality: Good Exam Date: 04/03/2025 10:57 AM Patient Status: I Admit Date: 04/02/2025 Exam Type: CA echo dop color flow w con Complete two-dimensional, color flow and Doppler transthoracic echocardiogram is performed with contrast to opacify the left ventricle and to improve the deliniation of the left ventricle endocardial borders. Staff Referring Physician: Suzan Cunha Actuarial Technician: Ailin Mcknight Attending Provider: Gabe Hernandez Contrast/Agitated Saline Contrast/Ag. Saline: Definity Amount: 2.00 ml Summary 1. Normal left ventricular size, global systolic function is normal. 2. Hypokinesia of the apex. 3. Grade 1 diastolic noncompliance. 4. Definity contrast utilized to improve visualization. Left Ventricle Left ventricular chamber dimension is normal. Left ventricular systolic function is normal, estimated at 55-60. The left ventricular diastolic function is grade I diastolic dysfunction. Right Ventricle Right ventricular chamber dimension is normal. Left Atria Left atrial chamber dimension is normal. Right Atria Right atrial chamber dimension is normal. Aortic Valve The aortic valve is normal. Pulmonic Valve The pulmonic valve is not well visualized. Mitral Valve The mitral valve has normal leaflets. Tricuspid Valve The tricuspid valve leaflets are normal. Pericardium/Pleural The pericardium appears normal. Aorta The aortic root size at the sinus of Valsalva is normal. Left Ventricular Outflow Tract Name Value Normal LVOT 2D LVOT Diameter 2.0 cm LVOT Doppler LVOT Peak Velocity 97 cm/s LVOT Peak Gradient 4 mmHg LVOT Mean Gradient 2 mmHg LVOT VTI 25 cm LVOT Stroke Volume 83 ml LVOT CO 4.0 l/min LVOT CI 1.7 l/min/m2 Pulmonic Valve Name Value Normal RVOT Doppler RVOT Peak Velocity 76 cm/s RVOT Peak Gradient 2 mmHg PV Doppler PV Peak Velocity 98 cm/s PV Peak Gradient 4 mmHg Mitral Valve Name Value Normal MV Diastolic Function MV E Peak Velocity 55 cm/s MV A Peak Velocity 80 cm/s MV E/A 0.7 MV Decel Time (PW) 302 ms MV Annular TDI MV E/e' (Septal) 8.8 MV E/e' (Lateral) 7.1 MV E/e' (Average) 7.9 Tricuspid Valve Name Value Normal TV Regurgitation Doppler TR Peak Velocity 292 cm/s TR Peak Gradient 34 mmHg Aortic Valve Name Value Normal AV Doppler AV Peak Velocity 127 cm/s AV Peak Gradient 6 mmHg AV Area (Cont Eq Laith) 2.5 cm2 AV DI (Laith) 0.76 AV Regurgitation 2D LVOT Area 3.3 cm2 Ventricles Name Value Normal LV Dimensions 2D/MM IVS Diastolic Thickness (2D) 1.0 cm 0.6-1.0 LVID Diastole (2D) 5.4 cm 4.2-5.8 LVIW Diastolic Thickness (2D) 1.0 cm 0.6-1.0 LVID Systole (2D) 3.6 cm 2.5-4.0 LVOT Diameter 2.0 cm LV Mass (2D Cubed) 207.88 g 88.00-224.00 LV Mass Index (2D Cubed) 88 g/m2 49-115 Relative Wall Thickness (2D) 0.36 <=0.42 LV Fractional Shortening/Ejection Fraction 2D/MM LV Fractional Shortening (2D) 35 % 25-43 LV EF (2D Teichholz) 63 % LV Diastolic Volume (4C MOD) 145 ml LV EF (4C MOD) 54 % LV Diastolic Volume (2C MOD) 148 ml LV EF (2C MOD) 63 % LV Diastolic Volume (BP MOD) 147 ml 62-150 LV Diastolic Volume Index (BP MOD) 62 ml/m2 34-74 LV Systolic Volume (BP MOD) 62 ml 21-61 LV Systolic Volume Index (BP MOD) 26 ml/m2 -31 LV EF (BP MOD) 58 % 52-72 LV Diastolic Length (4C) 8.9 cm LV Systolic Length (4C) 8.5 cm LV Stroke Volume (4C MOD) 78 ml Atria Name Value Normal LA Dimensions LA Volume (4C A-L) 39 ml LA Volume (BP A-L) 50 ml RA Dimensions RA Systolic Major [place] Length (4C) 5.8 cm 2.1-2.7 RA Area (4C) 19.3 cm2 <=18.0 Report Signatures
[2025-04-03 04:53] LABS: Hematocrit 41.9 % (42.0-52.0); Hemoglobin 14.2 g/dL (14.0-18.0); Immature Granulocyte Percent A 0.3 % (0-0.5); Lymphocytes Absolute Auto 1.70 K/mm3 (0.9-3.2); Mean Corpuscular HGB Conc 33.9 g/dl (32-36); Mean Corpuscular Hemoglobin 31.6 pg (26-34); Mean Corpuscular Volume 93.3 fl (80-100); Nucleated Red Blood Cells Absolute Auto 0.060 K/mm3 (0.0-0.012); Nucleated Red Blood Cells Perc 0.6 % (0.0-0.2); Platelet Count Result 244 k/mm3 (150-375); Red Blood Count 4.49 M/mm3 (4.6-6.20); White Blood Count 9.8 K/mm3 (4.5-10.0)
[2025-04-03 05:02] LABS: Hemoglobin A1C 5.7 % (<5.7)
[2025-04-03 05:15] LABS: Partial Thromboplastin Time 74.7 Seconds (22.3-36.8)
[2025-04-03] MEDS: LEVOTHYROXINE SODIUM 25 MCG TABLET PO (07:00)
[2025-04-03 07:15] LABS: Anion Gap 3 mmol/L (4-12); Blood Urea Nitrogen 19 mg/dL (9-20); Calcium 8.8 mg/dL (8.4-10.2); Carbon Dioxide 26 mmol/L (22-30); Chloride 105 mmol/L (98-107); Cholesterol 224 mg/dL (0-200); Estimated CRCL calculation 57 ml/min; Estimated Glomerular Filt Rate 53; Glucose 111 mg/dL (65-110); HDL Direct 58 mg/dL; Potassium 4.1 mmol/L (3.4-5.0); Sodium 134 mmol/L (137-145); Triglycerides 81 mg/dL (<150)
--- NOTE | 2025-04-03 08:27 | ECG_ITS ---
Test Date: 2025-04-03 08:42:24 Measurements Intervals [place] Rate: 64 P: 52 RI: 174 QRS: -89 QRSD: 102 T: 67 QT: 372 QTc: 385 Interpretive Statements SINUS RHYTHM LEFT ANTERIOR FASCICULAR BLOCK [QRS AXIS <= -45, QR IN I, RS IN II] MODERATE T-WAVE ABNORMALITY, CONSIDER LATERAL ISCHEMIA [-0.1+ mV T-WAVE IN I/aVL/V5/V6] ABNORMAL ECG Compared to ECG 04/02/2025 22:32:41 SINUS RHYTHM WITH NORMAL CONDUCTION REPLACES JUNCTIONAL RHYTHM Electronically Signed On 04-04-2025 09:11:45 CANINE ENFORCEMENT OFFICER by Almas Rahman M.D.
[2025-04-03] MEDS: METOPROLOL SUCCINATE EXT REL 12.5 MG TABCR PO (08:56)
[2025-04-03] MEDS: ATORVASTATIN 40 MG TABLET PO (08:56)
[2025-04-03] MEDS: TELMISARTAN 40 MG TABLET 80 MG PO (08:56)
--- NOTE | 2025-04-03 10:10 | P.CONCA_ITS ---
Assessment and Plan Assessment and plan (1) Acute non-ST elevation myocardial infarction (NSTEMI): Code(s): I21.4 - Non-ST elevation (NSTEMI) myocardial infarction Status: Acute Plan This is a 69-year-old man without prior cardiac history but with risk factors including hypertension and family history presenting with acute coronary syndrome/non ST elevation SD. he is stabilized and has been given heparin beta- dori and statin. I am going to order aspirin and a loading dose of clopidogrel today. We will keep him on heparin for now. I am going to order Protonix given his history of gastric ulcer with bleeding 3 years ago. Recommendation is to arrange for left heart catheterization to define his coronary anatomy. The procedure and its risks were explained in detail. He is agreeable to proceed. If he remains stable this will be done on Saturday morning. Almas Rahman MD [facility] History of Present Illness History of Present Illness Consult date/time: 04/03/25 10:10 Reason For Visit: ACS/ Positive Trop Narrative: This is a very pleasant 69-year-old man I am seeing today at the request of the hospitalist in the setting of non ST elevation SD. The patient is not known to me prior to this encounter. He is not known to have any cardiac problems previous to this. He was in his usual state of good health yesterday when he was at his local health club/[employer] working out and he started to develop some central chest heaviness. He has not used to having the symptoms or he works out otherwise. He went home to try to relax the symptom was waxing and waning but not resolving after a while he discuss the situation with his and they decided to come into the emergency room for evaluation. In the ED his electrocardiogram was benign showing an incomplete right bundle branch block but no other ST elevation or depression. His troponin was mildly elevated at 0.5 I was then contacted. I ordered him to be heparinized and received guideline directed medical therapy and be admitted to the hospital. He has not had any recurrent pain since he was in the emergency room. He feels well this morning and offers no other complaints. 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 He importantly does have a history of a GI bleed in 2021 when he was here hospitalized with influenza and at that time had a gastric ulcer which resulted in his hemoglobin going down to 8 g. He has not had any previous or subsequent ulcer disease or problems. He is no longer anemic. His lab data also shows mild renal insufficiency with a creatinine of 1.34. His primary care physician is at [place] he indicates that his physician has told him that his creatinine is modestly elevated. 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 He does not smoke does have a history of premature coronary disease his mother having of a myocardial infarction in her 40s. Review of Systems 2 Constitutional: Constitutional: Reports no additional constitutional complaints Eyes: Eyes: Reports no additional eye complaints ENT: Reports system reviewed and no additional complaints, except as documented Cardiovascular: Cardiovascular: Reports as per HPI Respiratory: Respiratory: Reports no additional respiratory complaints Gastrointestinal: Gastrointestinal: Reports no additional gastrointestinal complaints Musculoskeletal: Musculoskeletal: Reports no additional musculoskeletal complaints Integumentary/Breasts: Skin/Breast: Reports system reviewed and no additional complaints, except as docu Neurologic: Reports system reviewed and no additional complaints, except as documented Endocrine: Endocrine: Reports no additional endocrine complaints Hematologic/Lymphatic: Hematologic/Lymphatic: Reports no additional hematologic/lymphatic complaints Allergic/Immunologic: Allergic/Immunologic: Reports no additional allergic/immunologic complaints [facility] Past Medical History Medical History (Updated 04/02/25 @ 23:14 by Annmarie Karimi APRN) Gastric ulcer Coffee ground emesis Acute blood loss anemia Melena No significant past medical history Surgical History Surgical History (Updated 08/24/21 @ 02:28 by Jeana Gray DO) History of left inguinal hernia repair History of umbilical hernia repair Family History Family History Mother Acute myocardial infarction, Onset Age: 49 Father , in his 70's Diabetes mellitus Peripheral vascular disease End stage renal disease on dialysis due to type 2 diabetes mellitus Sibling Acute myocardial infarction Social History Social History (Updated 08/24/21 @ 02:36 by Jeana Gray DO) Social History: Code status: Full code Surrogate decision maker: Smoking packs per day: 1.5 Smoking cigarettes per day: 30.0 Years smoked: 30 Smoking pack-years: 45.00 Smoking status: Former smoker Second hand tobacco smoke exposure: Yes Additional smoking assessment comments: pt smokes pot 4x week Alcohol intake: never Substance use: current Substance use type: marijuana Last use: 08/22/21 Lack of Transportation: No Lack of Food: Never True Current Housing: I Have Housing Concerned About Future Housing: No Difficulty Paying Gas/Electric Bills: No Difficulty Paying for Meds: No Currently Unemployed: No Education: High School Diploma/GED Difficulty w/ Childcare or Family Care: No Living arrangements: with family Additional living arrangements comments: He has 2 children and 7 grandchildren. He lives with his of 40 years. 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 Gender identity (if verbalized by the patient): Male Sexual Orientation (if Verbalized by the Patient): Straight or Heterosexual Spiritual care concerns: No Agree to blood products: Yes Meds Home Medications and Allergies Home Medications ?Medication ?Instructions ?Recorded ?Confirmed ?Type levothyroxine 25 mcg tablet 25 mcg PO DAILY 04/02/25 1 06/02/24 History telmisartan 80 mg tablet 80 mg PO DAILY 04/02/2503/07 History Allergies Allergy/AdvReac Type Severity Reaction Status Date / Time No Known Allergies Allergy Verified 04/02/25 18:31 Vital Signs Vital Signs - 24 hr 04/02/25 15:10 04/02/25 15:33 04/02/25 15:34 Temperature 36.6 C Pulse Rate 67 66 Respiratory Rate 20 Blood Pressure 176/97 H Pulse Oximetry 100 100 Oxygen Delivery Room Air Room Air 04/02/25 16:19 04/02/25 17:22 04/02/25 18:30 Temperature 36.7 C Pulse Rate 69 67 63 Respiratory Rate 18 20 22 H Blood Pressure 173/87 H 191/97 H 175/95 H Pulse Oximetry 97 98 99 Oxygen Delivery 04/02/25 19:50 04/02/25 20:00 04/02/25 20:00 Temperature 37.1 C Pulse Rate 68 Respiratory Rate 18 Blood Pressure 156/72 H Pulse Oximetry 98 Oxygen Delivery Room Air 04/02/25 20:00 04/02/25 20:27 04/02/25 21:56 Temperature Pulse Rate 69 71 56 L Respiratory Rate Blood Pressure Pulse Oximetry Oxygen Delivery 04/02/25 23:19 04/02/25 23:42 04/03/25 00:00 Temperature 36.9 C Pulse Rate 66 50 L Respiratory Rate 20 Blood Pressure 148/99 H Pulse Oximetry 97 Oxygen Delivery Room Air 04/03/25 02:00 04/03/25 04:00 04/03/25 04:00 Temperature Pulse Rate 55 L 60 Respiratory Rate Blood Pressure Pulse Oximetry Oxygen Delivery Room Air 04/03/25 04:00 04/03/25 06:00 04/03/25 08:00 Temperature 36.6 C 36.8 C Pulse Rate 89 55 L 61 Respiratory Rate 16 21 H Blood Pressure 105/59 L 149/78 H Pulse Oximetry 95 97 Oxygen Delivery 04/03/25 08:56 Temperature Pulse Rate 62 Respiratory Rate Blood Pressure Pulse Oximetry Oxygen Delivery Exam 2 Const: Other: Very pleasant overweight man no distress HENMT: Mouth: Yes moist mucous membranes Eyes: Sclera: sclerae normal Pupils: Equal, round and reactive pupils present Neck: Neck: supple and no JVD Resp: Effort & Inspection: normal respiratory effort Auscultation: clear to auscultation bilaterally Cardio: Rate: regular rate Rhythm: regular rhythm Other: No audible murmur S4 is audible PMI is not palpable GI: GI Palp: Yes Soft to palpation Auscultation: normal bowel sounds Skin: General skin exam: normal color Neuro: Other: Alert and oriented x3 Extrem: General: normal to inspection Other: No edema, good distal perfusion Results Labs and Meds 04/03/25 04:47 04/03/25 06:51 Lab results: Cardiac Enzymes 04/02/25 04/02/25 04/02/25 Range/Units 15:36 18:52 22:26 AST 28 (17-59) U/L Troponin I 0.561 H* 1.930 H* D 3.550 H* D (0.000-0.034) ng/mL Coagulation 04/02/25 04/02/25 04/03/25 Range/Units 16:56 22:26 04:47 PT 13.1 (11.1-14.7) Seconds APTT 53.9 H 44.0 H 74.7 H (22.3-36.8) Seconds Lipids 04/03/25 Range/Units 06:51 Triglycerides 81 (<150) mg/dL Cholesterol 224 H (0-200) mg/dL CBC 04/02/25 04/02/25 04/03/25 Range/Units 15:36 17:14 04:47 WBC 9.5 10.7 H 9.8 (4.5-10.0) K/mm3 RBC 4.52 L 4.51 L 4.49 L (4.6-6.20) M/mm3 Hgb 14.2 D 14.3 14.2 (14.0-18.0) g/dL Hct 42.3 42.0 41.9 L (42.0-52.0) % Plt Count 232 240 244 (150-375) k/mm3 Lymph # (Auto) 1.40 1.19 1.70 (0.9-3.2) K/mm3 [place] # (Auto) 0.5 0.7 H 0.7 H (0.1-0.6) K/mm3 Eos # (Auto) 0.2 0.1 0.2 (0-0.3) K/mm3 Baso # (Auto) 0.1 0.1 0.1 (0.0-0.1) K/mm3 Comprehensive Metabolic Panel 04/02/25 04/03/25 Range/Units 15:36 06:51 Sodium 136 L 134 L (137-145) mmol/L Potassium 4.2 4.1 (3.4-5.0) mmol/L Chloride 104 105 (98-107) mmol/L Carbon Dioxide 28 26 (22-30) mmol/L BUN 29 H D 19 D (9-20) mg/dL Creatinine 1.76 H 1.34 H (0.7-1.3) mg/dL Glucose 168 H 111 H (65-110) mg/dL Calcium 8.8 8.8 (8.4-10.2) mg/dL AST 28 (17-59) U/L ALT 25 (6-50) U/L Alkaline Phosphatase 62 (38-126) U/L Total Protein 6.4 (6.3-8.2) g/dL Albumin 3.8 (3.5-5.1) g/dL Intake and Output 04/02/25 04/03/25 04/03/25 23:59 07:59 15:59 Intake Total 63 483.6 120 Output Total 900 Balance 63 -416.4 120 Intake: IV 63 83.6 Heparin Sod/D5w 100 Units/ml 25 63 83.6 ,000 units In 250 ml @ 1,300 UNITS/HR 13 mls/hr IV CONT . [id number] [facility] Rx#:[id number] Oral 400 120 Output: Urine 900 Other: # Unmeasured Voids 2 Patient Weight 04/03/25 23:59 Weight 106.2 kg
[2025-04-03] MEDS: CLOPIDOGREL BISULFATE 300 MG TABLET PO (10:49)
[2025-04-03] MEDS: PANTOPRAZOLE SOD SESQUIHYDRATE 20 MG TAB PO (10:49)
[2025-04-03 11:31] LABS: Partial Thromboplastin Time 62.4 Seconds (22.3-36.8)
[2025-04-03] MEDS: PERFLUTREN LIPID MICROSPHERES 1.5 ML VIAL DILUTED TO 10 ML TOTAL VOLUME IV PUSH (11:38)
--- NOTE | 2025-04-03 11:38 | IVDEFINITY ---
Prior to administration of IV Definity the patient was educated on the risks and benefits of the imaging enhancing agent including potential adverse side effects. The patient verbalized understanding. Allergies were verified. No exclusion criteria were identified and at least one of the following inclusion criteria were met: 1) physician request, 2) patient technically difficult to image (per the [place] [employer] guidelines of two or more segments not discernable within the apical view), or 3) questionable left ventricular function. ?
[2025-04-03] MEDS: HEPARIN SOD/D5W 100 UNITS/ML 25,000 UNITS/250 ML BAG 15 UNITS IV CONT (12:10)
--- NOTE | 2025-04-03 17:04 | P.PNIM_ITS ---
Progress Note: A&P Assessment and Plan (1) Acute non-ST elevation myocardial infarction (NSTEMI): Code(s): I21.4 - Non-ST elevation (NSTEMI) myocardial infarction Status: Acute Assessment and Plan: Sharp pain to his left chest with some associated tingling to his left hand. Pain briefly subsided before returning with associated diaphoresis and left arm heaviness. Patient did vomit. - EKG, initial: read by ED provider reads normal sinus rhythm with normal axis. ND normal. QRS duration normal. QTc normal. No pathologic Q waves. No ST segment elevation or depression to suggest acute ischemia. No RV strain pattern. BUN 29, BNP 344. - EKG, repeat (1): Sinus rhythm, incomplete right BBB - CXR: No acute cardiopulmonary process - Troponin: 0.561 -1.930-3.550 - 324 ASA with EMS - SL nitro PRN - cardiology consulted: cath 04/05, also started aspirin, clopidogrel, and PPI as patient has history of GI bleed 3 years ago. - started on heparin gtt - start atorvastatin 40 mg daily - lipid panel pending - A1c pending - telemetry monitoring (2) Acute kidney injury: Code(s): N17.9 - Acute kidney failure, unspecified Status: Acute Assessment and Plan: Cr 1.76 on admission. baseline creatinine 1.0 to 1.1. Patient appears euvolemic on exam. Now 1.34. -continue to trend renal function (3) Hypothyroidism: Qualifiers: Hypothyroidism type: unspecified Qualified Code(s): E03.9 - Hypothyroidism, unspecified Code(s): E03.9 - Hypothyroidism, unspecified Status: Chronic Assessment and Plan: Continue levothyroxine (4) Hypertension: Qualifiers: Hypertension type: primary hypertension Qualified Code(s): I10 - Essential (primary) hypertension Code(s): I10 - Essential (primary) hypertension Status: Chronic Assessment and Plan: Continue telmisartan Plan Cath thursday 04/05 DVT Prophylaxis: heparin drip Heart healthy diet Subjective Date/time seen: 04/03/25 17:04 Interval history: 69-year-old male with a past medical history of hypertension, peptic ulcer disease presents to the ED on 04/02/2025 with complaints of chest pain. Patient went to the gym this morning as he does every day. While on the treadmill he started to have sharp pain to his left chest with some associated tingling to his left hand. He has never experienced these symptoms before. The pain subsided and he finished his 6 mi walk. Patient went home and ate lunch. After a while he became diaphoretic with the return of the left chest pain with associated left arm heaviness. He ended up vomiting. His checked his blood pressure and found it to be elevated. EMS was subsequently called. Three hundred twenty-four aspirin given in route to the ED. Patient does have a history of hypertension but no known cardiac disease. He does have a strong family history with multiple family members with CAD. On arrival to the ED, patient's chest pain has subsided. Initial vital signs 176/97, HR 67, respirations 20, afebrile. Hematology without leukocytosis. Sodium 136, BUN 29, creatinine 1.76, GFR 39. Glucose 168. BNP 344. Initial troponin 0.561. Initial EKG read by ED provider reads normal sinus rhythm with normal axis. ND normal. QRS duration normal. QTc normal. No pathologic Q waves. No ST segment elevation or depression to suggest acute ischemia. No RV strain pattern. Chest x-ray with no acute cardiopulmonary abnormality. Review of Systems Review of Systems: All systems reviewed & are unremarkable except as noted in HPI and below Exam Narrative: GENERAL: non-toxic appearing, in no acute distress. HEAD: Normocephalic, atraumatic. EYES: PERRLA. Conjunctivae clear. NOSE: Normal no drainage. THROAT: Pharynx clear, no exudate. NECK: Trachea midline. No adenopathy, no masses. RESPIRATORY: Airway patent, respirations nonlabored. CTA. CARDIOVASCULAR: Regular rate and rhythm GASTROINTESTINAL: Abdomen is soft and nontender. No organomegaly. Bowel sounds normal in all quadrants. GENITOURINARY: Defer MUSCULOSKELETAL: Moves all extremities. No gross deformities. SKIN: Warm, dry, normal color. NEURO: A&O X4. Speech clear PSYCHIATRIC: Normal interaction Objective Data Vital Signs Vital Signs: Vital Signs - 24 hr 04/02/25 17:22 04/02/25 18:30 04/02/25 19:50 Temperature 98.0 F Pulse Rate 67 63 68 Respiratory Rate 20 22 H 18 Blood Pressure 191/97 H 175/95 H 156/72 H Pulse Oximetry 98 99 98 Oxygen Delivery 04/02/25 20:00 04/02/25 20:00 04/02/25 20:00 Temperature 98.7 F Pulse Rate 69 Respiratory Rate Blood Pressure Pulse Oximetry Oxygen Delivery Room Air 04/02/25 20:27 04/02/25 21:56 04/02/25 23:19 Temperature 98.4 F Pulse Rate 71 56 L 66 Respiratory Rate 20 Blood Pressure 148/99 H Pulse Oximetry 97 Oxygen Delivery 04/02/25 23:42 04/03/25 00:00 04/03/25 02:00 Temperature Pulse Rate 50 L 55 L Respiratory Rate Blood Pressure Pulse Oximetry Oxygen Delivery Room Air 04/03/25 04:00 04/03/25 04:00 04/03/25 04:00 Temperature 98 F Pulse Rate 60 89 Respiratory Rate 16 Blood Pressure 105/59 L Pulse Oximetry 95 Oxygen Delivery Room Air 04/03/25 06:00 04/03/25 08:00 04/03/25 08:00 Temperature 98.2 F Pulse Rate 55 L 61 Respiratory Rate 21 H Blood Pressure 149/78 H Pulse Oximetry 97 Oxygen Delivery Room Air 04/03/25 08:00 04/03/25 08:56 04/03/25 10:00 Temperature Pulse Rate 61 62 59 L Respiratory Rate Blood Pressure Pulse Oximetry Oxygen Delivery 04/03/25 12:00 04/03/25 12:00 04/03/25 12:00 Temperature 98.0 F Pulse Rate 56 L 53 L Respiratory Rate 20 Blood Pressure 131/77 Pulse Oximetry 99 Oxygen Delivery Room Air 04/03/25 13:48 04/03/25 14:00 04/03/25 15:50 Temperature Pulse Rate 62 68 Respiratory Rate Blood Pressure Pulse Oximetry 97 Oxygen Delivery Room Air Room Air Intake/Output Intake/Output: Intake & Output 03/31/25 04/01/25 04/02/25 04/03/25 23:59 23:59 23:59 23:59 Intake Total 63 910.9 Output Total 1500 Balance 63 -589.1 Meds/Results Medications: Active Medications Generic Name Dose Route Start Last Admin Trade Name Freq PRN Reason Stop Dose Admin Aspirin 81 mg 04/04/25 09:00 Aspirin 81 Mg Enteric Tablet PO QAM [facility]–1983 Atorvastatin Calcium 40 mg 04/03/25 09:00 04/03/25 08:56 Atorvastatin 40 Mg Tablet PO 40 mg DAILY [facility]1983 Administration Clopidogrel Bisulfate 75 mg 04/04/25 09:00 Clopidogrel Bisulfate 75 Mg Tablet PO QAM KALLIE Dextrose 12.5 gm 04/02/25 18:47 Dextrose 50% 25 Gm/50 Ml Syringe IV PUSH PRN PRN Hypoglycemia Protocol Glucagon 1 mg 04/02/25 18:47 Glucagon For Inj 1 Mg Vial IM PRN PRN Hypoglycemia Protocol Glucose 15 gm 04/02/25 18:47 Glucose Oral Gel 15 Gm Of Glucse In 37.5 Gm Tube PO PRN PRN Hypoglycemia Protocol Heparin Sodium (Porcine) 4,000 units 04/02/25 16:18 04/02/25 22:55 Heparin Sodium 5,000 Units/Ml Vial IV PUSH 4,000 units PRN PRN Administration aPTT less than 55 seconds Heparin Sodium (Porcine) 3,500 units 04/02/25 16:18 04/03/25 12:09 Heparin Sodium 5,000 Units/Ml Vial IV PUSH 3,500 units PRN PRN Administration aPTT 55 - 70 seconds Heparin Sodium/Dextrose 25,000 units in 250 mls @ 15 mls/hr 04/02/25 16:20 04/03/25 13:22 Heparin Sodium/D5w 100 Units/Ml IV CONT Not Given .[id number] KALLIE Protocol 1,500 UNITS/HR Dextrose 1,000 mls @ 100 mls/hr 04/02/25 18:47 Dextrose 5% 1,000 Ml IVPB PRN PRN Hypoglycemia Protocol Levothyroxine Sodium 25 mcg 04/03/25 06:30 04/03/25 07:00 Levothyroxine Sodium 25 Mcg Tablet PO 25 mcg DAILY@0630 KALLIE Administration Metoprolol Succinate 12.5 mg 04/03/25 09:00 04/03/25 08:56 Metoprolol Succinate Ext Rel 12.5 Mg Tabcr PO 12.5 mg QAM KALLIE Administration Nitroglycerin 0.4 mg 04/02/25 19:53 Nitroglycerin Sl 0.4 Mg Tablet SUBLINGUAL Q5MIN PRN Chest Pain Pantoprazole Sodium 20 mg 04/03/25 10:10 04/03/25 10:49 Pantoprazole Sod Sesquihydrate 20 Mg Tab PO 20 mg QAM KALLIE Administration Telmisartan 80 mg 04/03/25 09:00 04/03/25 08:56 Telmisartan 40 Mg Tablet PO 80 mg DAILY KALLIE Administration Radiology Results: ITS Impressions Chest X-Ray 04/02/25 15:55 Impression: No acute cardiopulmonary abnormality. Labs Labs: Laboratory Results - last 24 hr 04/02/25 04/02/25 04/02/25 16:56 17:14 18:52 WBC 10.7 H RBC 4.51 L Hgb 14.3 Hct 42.0 MCV 93.1 MCH 31.7 MCHC 34.0 RDW 11.9 Plt Count 240 MPV 9.3 Immature Gran % (Auto) 0.5 Neut % (Auto) 79.6 H Lymph % (Auto) 11.1 L Cooper % (Auto) 6.8 Eos % (Auto) 1.2 Baso % (Auto) 0.8 Lymph # (Auto) 1.19 Cooper # (Auto) 0.7 H Eos # (Auto) 0.1 Baso # (Auto) 0.1 Abs Immat Gran (auto) 0.05 H Absolute Neuts (auto) 8.6 H Absolute Nucleated RBC 0.000 Nucleated RBC % 0.0 PT 13.1 INR 1.0 APTT 53.9 H Sodium Potassium Chloride Carbon Dioxide Anion Gap BUN Creatinine Estim Creat Clear Calc Estimated GFR Glucose Hemoglobin A1c Calcium Troponin I 1.930 H* D Triglycerides Cholesterol LDL Cholesterol Direct HDL Direct 04/02/25 04/03/25 04/03/25 22:26 04:47 06:51 WBC 9.8 RBC 4.49 L Hgb 14.2 Hct 41.9 L MCV 93.3 MCH 31.6 MCHC 33.9 RDW 12.0 Plt Count 244 MPV 10.0 Immature Gran % (Auto) 0.3 Neut % (Auto) 72.4 Lymph % (Auto) 17.3 L Cooper % (Auto) 7.1 Eos % (Auto) 2.3 Baso % (Auto) 0.6 Lymph # (Auto) 1.70 Cooper # (Auto) 0.7 H Eos # (Auto) 0.2 Baso # (Auto) 0.1 Abs Immat Gran (auto) 0.03 Absolute Neuts (auto) 7.1 H Absolute Nucleated RBC 0.060 H Nucleated RBC % 0.6 H PT INR APTT 44.0 H 74.7 H Sodium 134 L Potassium 4.1 Chloride 105 Carbon Dioxide 26 Anion Gap 3 L BUN 19 D Creatinine 1.34 H Estim Creat Clear Calc 57 Estimated GFR 53 L Glucose 111 H Hemoglobin A1c 5.7 Calcium 8.8 Troponin I 3.550 H* D Triglycerides 81 Cholesterol 224 H LDL Cholesterol Direct 134 HDL Direct 58 04/03/25 10:45 WBC RBC Hgb Hct MCV MCH MCHC RDW Plt Count MPV Immature Gran % (Auto) Neut % (Auto) Lymph % (Auto) Cooper % (Auto) Eos % (Auto) Baso % (Auto) Lymph # (Auto) Cooper # (Auto) Eos # (Auto) Baso # (Auto) Abs Immat Gran (auto) Absolute Neuts (auto) Absolute Nucleated RBC Nucleated RBC % PT INR APTT 62.4 H Sodium Potassium Chloride Carbon Dioxide Anion Gap BUN Creatinine Estim Creat Clear Calc Estimated GFR Glucose Hemoglobin A1c Calcium Troponin I Triglycerides Cholesterol LDL Cholesterol Direct HDL Direct Hospitalist MIPS Advance Care Plan I have confirmed that the patient's Advanced Care Plan is present, code status is documented, or surrogate decision maker is listed in patient medical record.: Yes Medication Reconciliation I have utilized all available resources to obtain, update and review the patients current medications (includes all prescriptions, OTC, herbals, cannabis, and nutritional supplements).: Yes
[2025-04-03 18:30] LABS: Partial Thromboplastin Time 78.5 Seconds (22.3-36.8)
[2025-04-04] VITALS (17 sets, daily range): BP systolic 111–136; BP diastolic 70–81; PULSE 48–71; RESP 16–21; TEMP 36.6–36.8; O2SAT 95–99
[2025-04-04 01:16] LABS: Partial Thromboplastin Time 62.0 Seconds (22.3-36.8)
[2025-04-04] MEDS: HEPARIN SOD/D5W 100 UNITS/ML 25,000 UNITS/250 ML BAG 17 UNITS IV CONT (03:22)
[2025-04-04] MEDS: LEVOTHYROXINE SODIUM 25 MCG TABLET PO (06:34)
[2025-04-04 07:50] LABS: Hematocrit 43.5 % (42.0-52.0); Hemoglobin 15.0 g/dL (14.0-18.0); Immature Granulocyte Percent A 0.5 % (0-0.5); Lymphocytes Absolute Auto 1.48 K/mm3 (0.9-3.2); Mean Corpuscular HGB Conc 34.5 g/dl (32-36); Mean Corpuscular Hemoglobin 31.7 pg (26-34); Mean Corpuscular Volume 92.0 fl (80-100); Nucleated Red Blood Cells Absolute Auto 0.000 K/mm3 (0.0-0.012); Nucleated Red Blood Cells Perc 0.0 % (0.0-0.2); Platelet Count Result 235 k/mm3 (150-375); Red Blood Count 4.73 M/mm3 (4.6-6.20); White Blood Count 9.2 K/mm3 (4.5-10.0)
[2025-04-04 08:00] LABS: Alanine Aminotransferase 24 U/L (6-50); Albumin Level 3.7 g/dL (3.5-5.1); Alkaline Phosphatase 62 U/L (38-126); Anion Gap 3 mmol/L (4-12); Aspartate Amino Transferase 40 U/L (17-59); Bilirubin,Total 1.1 mg/dL (0.2-1.3); Blood Urea Nitrogen 21 mg/dL (9-20); Calcium 8.9 mg/dL (8.4-10.2); Carbon Dioxide 26 mmol/L (22-30); Chloride 104 mmol/L (98-107); Estimated CRCL calculation 55 ml/min; Estimated Glomerular Filt Rate 52; Glucose 109 mg/dL (65-110); Potassium 4.3 mmol/L (3.4-5.0); Sodium 133 mmol/L (137-145); Total Protein 6.4 g/dL (6.3-8.2)
[2025-04-04 08:01] LABS: Partial Thromboplastin Time 136.7 Seconds (22.3-36.8)
[2025-04-04] MEDS: TELMISARTAN 40 MG TABLET 80 MG PO (08:25)
[2025-04-04] MEDS: PANTOPRAZOLE SOD SESQUIHYDRATE 20 MG TAB PO (08:26)
[2025-04-04] MEDS: ASPIRIN 81 MG ENTERIC TABLET PO (08:27)
[2025-04-04] MEDS: ATORVASTATIN 40 MG TABLET PO (08:27)
[2025-04-04] MEDS: CLOPIDOGREL BISULFATE 75 MG TABLET PO (08:27)
[2025-04-04] MEDS: METOPROLOL SUCCINATE EXT REL 12.5 MG TABCR PO (08:29)
--- NOTE | 2025-04-04 11:11 | PM.PNCARD ---
Progress Note: A&P Assessment and Plan (1) Acute non-ST elevation myocardial infarction (NSTEMI): Code(s): I21.4 - Non-ST elevation (NSTEMI) myocardial infarction Status: Acute Plan 69-year-old man with acute coronary syndrome/non ST elevation VA anticipating left heart catheterization tomorrow to define coronary anatomy and revascularization strategy. Almas Rahman MD [facility] Subjective Date/time seen: Date of service: 04/04/25 11:11 Interval history: Follow-up visit in this 69-year-old man with: Acute coronary syndrome/non ST elevation VA. He is stable on medical therapy and remains on heparin infusion. Offers no complaints per the last couple of days anticipating left heart catheterization tomorrow morning questions regarding the procedure were discussed and answered Exam Const: General: comfortable HENMT: Face/Nose/Sinus: Normal nares present Eyes: Sclera: sclerae normal Neck: Neck: supple and no JVD Resp: Effort & Inspection: normal respiratory effort Auscultation: clear to auscultation bilaterally Cardio: Rate: regular rate Rhythm: regular rhythm Other: No audible murmur GI: GI Palp: Yes Soft to palpation Auscultation: normal bowel sounds Skin: General skin exam: normal color Neuro: Other: Alert and oriented Extrem: General: normal to inspection Objective Data Vital Signs Vital Signs: Vital Signs - 24 hr 04/03/25 12:00 04/03/25 12:00 04/03/25 12:00 Temperature 36.7 C Pulse Rate 56 L 53 L Respiratory Rate 20 Blood Pressure 131/77 Pulse Oximetry 99 Oxygen Delivery Room Air 04/03/25 13:48 04/03/25 14:00 04/03/25 15:50 Temperature Pulse Rate 62 68 Respiratory Rate Blood Pressure Pulse Oximetry 97 Oxygen Delivery Room Air Room Air 04/03/25 16:00 04/03/25 16:00 04/03/25 18:00 Temperature 36.4 C Pulse Rate 56 L 56 L 61 Respiratory Rate 20 Blood Pressure 147/84 H Pulse Oximetry 99 Oxygen Delivery 04/03/25 20:00 04/03/25 20:00 04/03/25 20:00 Temperature 36.7 C Pulse Rate 60 53 L Respiratory Rate 19 Blood Pressure 123/72 Pulse Oximetry 96 Oxygen Delivery Room Air 04/03/25 22:00 04/04/25 00:00 04/04/25 00:00 Temperature 36.8 C Pulse Rate 52 L 60 55 L Respiratory Rate 21 H Blood Pressure 120/72 Pulse Oximetry 96 Oxygen Delivery 04/04/25 00:00 04/04/25 02:00 04/04/25 03:22 Temperature 36.6 C Pulse Rate 54 L 64 Respiratory Rate 16 Blood Pressure 117/76 Pulse Oximetry 95 Oxygen Delivery Room Air 04/04/25 03:47 04/04/25 04:00 04/04/25 06:00 Temperature Pulse Rate 56 L 48 L Respiratory Rate Blood Pressure Pulse Oximetry Oxygen Delivery Room Air 04/04/25 07:49 04/04/25 08:00 04/04/25 08:00 Temperature 36.8 C Pulse Rate 54 L 64 Respiratory Rate 19 Blood Pressure 123/72 Pulse Oximetry 97 Oxygen Delivery Room Air 04/04/25 08:29 04/04/25 10:00 Temperature Pulse Rate 71 63 Respiratory Rate Blood Pressure Pulse Oximetry Oxygen Delivery Intake/Output Intake/Output: Intake & Output 04/01/25 04/02/25 04/03/25 04/04/25 23:59 23:59 23:59 23:59 Intake Total 63 1762.4 666.5 Output Total 1850 Balance 63 -87.6 666.5 Meds/Results Medications: Active Medications Generic Name Dose Route Start Last Admin Trade Name Freq PRN Reason Stop Dose Admin Aspirin 81 mg 04/04/25 09:00 04/04/25 08:27 Aspirin 81 Mg Enteric Tablet PO 81 mg QAM KALLIE Administration Atorvastatin Calcium 40 mg 04/03/25 09:00 04/04/25 08:27 Atorvastatin 40 Mg Tablet PO 40 mg DAILY KALLIE Administration Clopidogrel Bisulfate 75 mg 04/04/25 09:00 04/04/25 08:27 Clopidogrel Bisulfate 75 Mg Tablet PO 75 mg QAM KALLIE Administration Dextrose 12.5 gm 04/02/25 18:47 Dextrose 50% 25 Gm/50 Ml Syringe IV PUSH PRN PRN Hypoglycemia Protocol Glucagon 1 mg 04/02/25 18:47 Glucagon For Inj 1 Mg Vial IM PRN PRN Hypoglycemia Protocol Glucose 15 gm 04/02/25 18:47 Glucose Oral Gel 15 Gm Of Glucse In 37.5 Gm Tube PO PRN PRN Hypoglycemia Protocol Heparin Sodium (Porcine) 4,000 units 04/02/25 16:18 04/02/25 22:55 Heparin Sodium 5,000 Units/Ml Vial IV PUSH 4,000 units PRN PRN Administration aPTT less than 55 seconds Heparin Sodium (Porcine) 3,500 units 04/02/25 16:18 04/04/25 01:34 Heparin Sodium 5,000 Units/Ml Vial IV PUSH 3,500 units PRN PRN Administration aPTT 55 - 70 seconds Heparin Sodium/Dextrose 25,000 units in 250 mls @ 14 mls/hr 04/02/25 16:20 04/04/25 09:28 Heparin Sodium/D5w 100 Units/Ml IV CONT 1,400 units/hr .[id number] KALLIE 14 mls/hr Protocol Titration 1,400 UNITS/HR Dextrose 1,000 mls @ 100 mls/hr 04/02/25 18:47 Dextrose 5% 1,000 Ml IVPB PRN PRN Hypoglycemia Protocol Levothyroxine Sodium 25 mcg 04/03/25 06:30 04/04/25 06:34 Levothyroxine Sodium 25 Mcg Tablet PO 25 mcg DAILY@0630 KALLIE Administration Metoprolol Succinate 12.5 mg 04/03/25 09:00 04/04/25 08:29 Metoprolol Succinate Ext Rel 12.5 Mg Tabcr PO 12.5 mg QAM KALLIE Administration Nitroglycerin 0.4 mg 04/02/25 19:53 Nitroglycerin Sl 0.4 Mg Tablet SUBLINGUAL Q5MIN PRN Chest Pain Pantoprazole Sodium 20 mg 04/03/25 10:10 04/04/25 08:26 Pantoprazole Sod Sesquihydrate 20 Mg Tab PO 20 mg QAM KALLIE Administration Telmisartan 80 mg 04/03/25 09:00 04/04/25 08:25 Telmisartan 40 Mg Tablet PO 80 mg DAILY KALLIE Administration Radiology Results: ITS Impressions Chest X-Ray 04/02/25 15:55 Impression: No acute cardiopulmonary abnormality. Labs Labs: Laboratory Results - last 24 hr 04/03/25 04/03/25 04/04/25 10:45 18:09 00:39 WBC RBC Hgb Hct MCV MCH MCHC RDW Plt Count MPV Immature Gran % (Auto) Neut % (Auto) Lymph % (Auto) Carroll % (Auto) Eos % (Auto) Baso % (Auto) Lymph # (Auto) Carroll # (Auto) Eos # (Auto) Baso # (Auto) Abs Immat Gran (auto) Absolute Neuts (auto) Absolute Nucleated RBC Nucleated RBC % APTT 62.4 H 78.5 H 62.0 H Sodium Potassium Chloride Carbon Dioxide Anion Gap BUN Creatinine Estim Creat Clear Calc Estimated GFR Glucose Calcium Total Bilirubin AST ALT Alkaline Phosphatase Total Protein Albumin 04/04/25 07:43 WBC 9.2 RBC 4.73 Hgb 15.0 Hct 43.5 MCV 92.0 MCH 31.7 MCHC 34.5 RDW 12.1 Plt Count 235 MPV 9.3 Immature Gran % (Auto) 0.5 Neut % (Auto) 72.7 Lymph % (Auto) 16.1 L Carroll % (Auto) 7.4 Eos % (Auto) 2.5 Baso % (Auto) 0.8 Lymph # (Auto) 1.48 Carroll # (Auto) 0.7 H Eos # (Auto) 0.2 Baso # (Auto) 0.1 Abs Immat Gran (auto) 0.05 H Absolute Neuts (auto) 6.7 Absolute Nucleated RBC 0.000 Nucleated RBC % 0.0 APTT 136.7 H Sodium 133 L Potassium 4.3 Chloride 104 Carbon Dioxide 26 Anion Gap 3 L BUN 21 H Creatinine 1.37 H Estim Creat Clear Calc 55 Estimated GFR 52 L Glucose 109 Calcium 8.9 Total Bilirubin 1.1 AST 40 ALT 24 Alkaline Phosphatase 62 Total Protein 6.4 Albumin 3.7
[2025-04-04 16:06] LABS: Partial Thromboplastin Time 69.9 Seconds (22.3-36.8)
--- NOTE | 2025-04-04 16:44 | P.PNIM_ITS ---
Progress Note: A&P Assessment and Plan (1) Acute non-ST elevation myocardial infarction (NSTEMI): Code(s): I21.4 - Non-ST elevation (NSTEMI) myocardial infarction Status: Acute Assessment and Plan: Sharp pain to his left chest with some associated tingling to his left hand. Pain briefly subsided before returning with associated diaphoresis and left arm heaviness. Patient did vomit. - EKG, initial: read by ED provider reads normal sinus rhythm with normal axis. MT normal. QRS duration normal. QTc normal. No pathologic Q waves. No ST segment elevation or depression to suggest acute ischemia. No RV strain pattern. BUN 29, BNP 344. - EKG, repeat (1): Sinus rhythm, incomplete right BBB - CXR: No acute cardiopulmonary process - Troponin: 0.561 -1.930-3.550 - 324 ASA with EMS - SL nitro PRN - cardiology consulted: cath 04/05, also started aspirin, clopidogrel, and PPI as patient has history of GI bleed 3 years ago. - started on heparin gtt - start atorvastatin 40 mg daily - lipid panel pending - A1c pending - telemetry monitoring (2) Acute kidney injury: Code(s): N17.9 - Acute kidney failure, unspecified Status: Acute Assessment and Plan: Cr 1.76 on admission. baseline creatinine 1.0 to 1.1. Patient appears euvolemic on exam. Now 1.37. -continue to trend renal function (3) Hypothyroidism: Qualifiers: Hypothyroidism type: unspecified Qualified Code(s): E03.9 - Hypothyroidism, unspecified Code(s): E03.9 - Hypothyroidism, unspecified Status: Chronic Assessment and Plan: Continue levothyroxine (4) Hypertension: Qualifiers: Hypertension type: primary hypertension Qualified Code(s): I10 - Essential (primary) hypertension Code(s): I10 - Essential (primary) hypertension Status: Chronic Assessment and Plan: Continue telmisartan Plan Cath thursday 04/05 DVT Prophylaxis: heparin drip Heart healthy diet Subjective Date/time seen: 04/04/25 16:44 Interval history: 69-year-old male with a past medical history of hypertension, peptic ulcer disease presents to the ED on 04/02/2025 with complaints of chest pain. Patient went to the gym this morning as he does every day. While on the treadmill he started to have sharp pain to his left chest with some associated tingling to his left hand. He has never experienced these symptoms before. The pain subsided and he finished his 6 mi walk. Patient went home and ate lunch. After a while he became diaphoretic with the return of the left chest pain with associated left arm heaviness. He ended up vomiting. His checked his blood pressure and found it to be elevated. EMS was subsequently called. Three hundred twenty-four aspirin given in route to the ED. Patient does have a history of hypertension but no known cardiac disease. He does have a strong family history with multiple family members with CAD. On arrival to the ED, patient's chest pain has subsided. Initial vital signs 176/97, HR 67, respirations 20, afebrile. Hematology without leukocytosis. Sodium 136, BUN 29, creatinine 1.76, GFR 39. Glucose 168. BNP 344. Initial troponin 0.561. Initial EKG read by ED provider reads normal sinus rhythm with normal axis. MT normal. QRS duration normal. QTc normal. No pathologic Q waves. No ST segment elevation or depression to suggest acute ischemia. No RV strain pattern. Chest x-ray with no acute cardiopulmonary abnormality. Review of Systems Review of Systems: All systems reviewed & are unremarkable except as noted in HPI and below Exam Narrative: GENERAL: non-toxic appearing, in no acute distress. HEAD: Normocephalic, atraumatic. EYES: PERRLA. Conjunctivae clear. NOSE: Normal no drainage. THROAT: Pharynx clear, no exudate. NECK: Trachea midline. No adenopathy, no masses. RESPIRATORY: Airway patent, respirations nonlabored. CTA. CARDIOVASCULAR: Regular rate and rhythm GASTROINTESTINAL: Abdomen is soft and nontender. No organomegaly. Bowel sounds normal in all quadrants. GENITOURINARY: Defer MUSCULOSKELETAL: Moves all extremities. No gross deformities. SKIN: Warm, dry, normal color. NEURO: A&O X4. Speech clear PSYCHIATRIC: Normal interaction Objective Data Vital Signs Vital Signs: Vital Signs - 24 hr 04/03/25 18:00 04/03/25 20:00 04/03/25 20:00 Temperature 98.0 F Pulse Rate 61 60 Respiratory Rate 19 Blood Pressure 123/72 Pulse Oximetry 96 Oxygen Delivery Room Air 04/03/25 20:00 04/03/25 22:00 04/04/25 00:00 Temperature 98.3 F Pulse Rate 53 L 52 L 60 Respiratory Rate 21 H Blood Pressure 120/72 Pulse Oximetry 96 Oxygen Delivery 04/04/25 00:00 04/04/25 00:00 04/04/25 02:00 Temperature Pulse Rate 55 L 54 L Respiratory Rate Blood Pressure Pulse Oximetry Oxygen Delivery Room Air 04/04/25 03:22 04/04/25 03:47 04/04/25 04:00 Temperature 97.9 F Pulse Rate 64 56 L Respiratory Rate 16 Blood Pressure 117/76 Pulse Oximetry 95 Oxygen Delivery Room Air 04/04/25 06:00 04/04/25 07:49 04/04/25 08:00 Temperature 98.3 F Pulse Rate 48 L 54 L Respiratory Rate 19 Blood Pressure 123/72 Pulse Oximetry 97 Oxygen Delivery Room Air 04/04/25 08:00 04/04/25 08:29 04/04/25 10:00 Temperature Pulse Rate 64 71 63 Respiratory Rate Blood Pressure Pulse Oximetry Oxygen Delivery 04/04/25 11:43 04/04/25 12:00 04/04/25 12:00 Temperature 97.8 F Pulse Rate 63 63 Respiratory Rate 17 Blood Pressure 118/81 Pulse Oximetry 99 Oxygen Delivery Room Air 04/04/25 14:00 Temperature Pulse Rate 65 Respiratory Rate Blood Pressure Pulse Oximetry Oxygen Delivery Intake/Output Intake/Output: Intake & Output 04/01/25 04/02/25 04/03/25 04/04/25 23:59 23:59 23:59 23:59 Intake Total 63 1762.4 906.5 Output Total 1850 Balance 63 -87.6 906.5 Meds/Results Medications: Active Medications Generic Name Dose Route Start Last Admin Trade Name Freq PRN Reason Stop Dose Admin Aspirin 81 mg 04/04/25 09:00 04/04/25 08:27 Aspirin 81 Mg Enteric Tablet PO 81 mg QAM KALLIE Administration Atorvastatin Calcium 40 mg 04/03/25 09:00 04/04/25 08:27 Atorvastatin 40 Mg Tablet PO 40 mg DAILY KALLIE Administration Clopidogrel Bisulfate 75 mg 04/04/25 09:00 04/04/25 08:27 Clopidogrel Bisulfate 75 Mg Tablet PO 75 mg QAM KALLIE Administration Dextrose 12.5 gm 04/02/25 18:47 Dextrose 50% 25 Gm/50 Ml Syringe IV PUSH PRN PRN Hypoglycemia Protocol Glucagon 1 mg 04/02/25 18:47 Glucagon For Inj 1 Mg Vial IM PRN PRN Hypoglycemia Protocol Glucose 15 gm 04/02/25 18:47 Glucose Oral Gel 15 Gm Of Glucse In 37.5 Gm Tube PO PRN PRN Hypoglycemia Protocol Heparin Sodium (Porcine) 4,000 units 04/02/25 16:18 04/02/25 22:55 Heparin Sodium 5,000 Units/Ml Vial IV PUSH 4,000 units PRN PRN Administration aPTT less than 55 seconds Heparin Sodium (Porcine) 3,500 units 04/02/25 16:18 04/04/25 01:34 Heparin Sodium 5,000 Units/Ml Vial IV PUSH 3,500 units PRN PRN Administration aPTT 55 - 70 seconds Heparin Sodium/Dextrose 25,000 units in 250 mls @ 14 mls/hr 04/02/25 16:20 04/04/25 11:56 Heparin Sodium/D5w 100 Units/Ml IV CONT Not Given .[id number] KALLIE Protocol 1,400 UNITS/HR Dextrose 1,000 mls @ 100 mls/hr 04/02/25 18:47 Dextrose 5% 1,000 Ml IVPB PRN PRN Hypoglycemia Protocol Levothyroxine Sodium 25 mcg 04/03/25 06:30 04/04/25 06:34 Levothyroxine Sodium 25 Mcg Tablet PO 25 mcg DAILY@0630 KALLIE Administration Metoprolol Succinate 12.5 mg 04/03/25 09:00 04/04/25 08:29 Metoprolol Succinate Ext Rel 12.5 Mg Tabcr PO 12.5 mg QAM KALLIE Administration Nitroglycerin 0.4 mg 04/02/25 19:53 Nitroglycerin Sl 0.4 Mg Tablet SUBLINGUAL Q5MIN PRN Chest Pain Pantoprazole Sodium 20 mg 04/03/25 10:10 04/04/25 08:26 Pantoprazole Sod Sesquihydrate 20 Mg Tab PO 20 mg QAM KALLIE Administration Telmisartan 80 mg 04/03/25 09:00 04/04/25 08:25 Telmisartan 40 Mg Tablet PO 80 mg DAILY KALLIE Administration Radiology Results: ITS Impressions Chest X-Ray 04/02/25 15:55 Impression: No acute cardiopulmonary abnormality. Labs Labs: Laboratory Results - last 24 hr 04/03/25 04/04/25 04/04/25 18:09 00:39 07:43 WBC 9.2 RBC 4.73 Hgb 15.0 Hct 43.5 MCV 92.0 MCH 31.7 MCHC 34.5 RDW 12.1 Plt Count 235 MPV 9.3 Immature Gran % (Auto) 0.5 Neut % (Auto) 72.7 Lymph % (Auto) 16.1 L [place] % (Auto) 7.4 Eos % (Auto) 2.5 Baso % (Auto) 0.8 Lymph # (Auto) 1.48 [place] # (Auto) 0.7 H Eos # (Auto) 0.2 Baso # (Auto) 0.1 Abs Immat Gran (auto) 0.05 H Absolute Neuts (auto) 6.7 Absolute Nucleated RBC 0.000 Nucleated RBC % 0.0 APTT 78.5 H 62.0 H 136.7 H Sodium 133 L Potassium 4.3 Chloride 104 Carbon Dioxide 26 Anion Gap 3 L BUN 21 H Creatinine 1.37 H Estim Creat Clear Calc 55 Estimated GFR 52 L Glucose 109 Calcium 8.9 Total Bilirubin 1.1 AST 40 ALT 24 Alkaline Phosphatase 62 Total Protein 6.4 Albumin 3.7 04/04/25 15:40 WBC RBC Hgb Hct MCV MCH MCHC RDW Plt Count MPV Immature Gran % (Auto) Neut % (Auto) Lymph % (Auto) [place] % (Auto) Eos % (Auto) Baso % (Auto) Lymph # (Auto) [place] # (Auto) Eos # (Auto) Baso # (Auto) Abs Immat Gran (auto) Absolute Neuts (auto) Absolute Nucleated RBC Nucleated RBC % APTT 69.9 H Sodium Potassium Chloride Carbon Dioxide Anion Gap BUN Creatinine Estim Creat Clear Calc Estimated GFR Glucose Calcium Total Bilirubin AST ALT Alkaline Phosphatase Total Protein Albumin Hospitalist MIPS Advance Care Plan I have confirmed that the patient's Advanced Care Plan is present, code status is documented, or surrogate decision maker is listed in patient medical record.: Yes Medication Reconciliation I have utilized all available resources to obtain, update and review the patients current medications (includes all prescriptions, OTC, herbals, cannabis, and nutritional supplements).: Yes
[2025-04-04] MEDS: HEPARIN SOD/D5W 100 UNITS/ML 25,000 UNITS/250 ML BAG 16 UNITS IV CONT (20:25)
[2025-04-04 23:13] LABS: Partial Thromboplastin Time 116.2 Seconds (22.3-36.8)
[2025-04-05] VITALS (14 sets, daily range): BP systolic 91–136; BP diastolic 57–83; PULSE 50–97; RESP 18–23; TEMP 36.4–36.9; O2SAT 94–100
[2025-04-05 05:41] LABS: Hematocrit 43.3 % (42.0-52.0); Hemoglobin 14.6 g/dL (14.0-18.0); Immature Granulocyte Percent A 0.5 % (0-0.5); Lymphocytes Absolute Auto 2.14 K/mm3 (0.9-3.2); Mean Corpuscular HGB Conc 33.7 g/dl (32-36); Mean Corpuscular Hemoglobin 31.4 pg (26-34); Mean Corpuscular Volume 93.1 fl (80-100); Nucleated Red Blood Cells Absolute Auto 0.000 K/mm3 (0.0-0.012); Nucleated Red Blood Cells Perc 0.0 % (0.0-0.2); Platelet Count Result 224 k/mm3 (150-375); Red Blood Count 4.65 M/mm3 (4.6-6.20); White Blood Count 10.4 K/mm3 (4.5-10.0)
[2025-04-05] MEDS: LEVOTHYROXINE SODIUM 25 MCG TABLET PO (05:58)
[2025-04-05 06:00] LABS: Partial Thromboplastin Time 80.5 Seconds (22.3-36.8)
[2025-04-05 06:09] LABS: Alanine Aminotransferase 21 U/L (6-50); Albumin Level 3.7 g/dL (3.5-5.1); Alkaline Phosphatase 62 U/L (38-126); Anion Gap 1 mmol/L (4-12); Aspartate Amino Transferase 31 U/L (17-59); Bilirubin,Total 0.9 mg/dL (0.2-1.3); Blood Urea Nitrogen 24 mg/dL (9-20); Calcium 9.0 mg/dL (8.4-10.2); Carbon Dioxide 27 mmol/L (22-30); Chloride 105 mmol/L (98-107); Estimated CRCL calculation 50 ml/min; Estimated Glomerular Filt Rate 46; Glucose 102 mg/dL (65-110); Potassium 4.3 mmol/L (3.4-5.0); Sodium 133 mmol/L (137-145); Total Protein 6.5 g/dL (6.3-8.2)
--- NOTE | 2025-04-05 08:58 | P.PNCA_ITS ---
Progress Note: A&P Assessment and Plan (1) Acute non-ST elevation myocardial infarction (NSTEMI): Code(s): I21.4 - Non-ST elevation (NSTEMI) myocardial infarction Status: Acute (2) Hypertension: Qualifiers: Hypertension type: primary hypertension Qualified Code(s): I10 - Essential (primary) hypertension Code(s): I10 - Essential (primary) hypertension Status: Chronic Plan Assessment: NSTEMI Normal LVEF by echo with hypokinesis of apex, grade 1 diastolic dysfunction, no significant valvular pathology Hypertension-controlled History of gastric ulcer and GI bleed in 2021; no bleeding issues after that; hemoglobin 14.6 today Plan: Continue heparin drip Continue aspirin, statin Continue metoprolol and telmisartan Cardiac catheterization today to evaluate coronaries and possible PCI. Risks, benefits, and alternatives discussed with patient and he is willing to proceed. He has been NPO since midnight. No contrast allergy. No upcoming surgeries. Creatinine 1.5 today with a GFR of 46. He has a CKD with baseline creatinine between 1-1.5 Monitor on telemetry Check and replace electrolytes to keep potassium greater than 4 magnesium greater than 2 Subjective Date/time seen: 04/05/25 08:58 Interval history: Reason for encounter: NSTEMI Relevant history: [age]-year-old male with past medical history of hypertension, gastric ulcer in 2021, hypothyroid presents with chief complaints of chest pain on Saturday while he was walking on the treadmill. Pain resolved with rest and record again after he reached home. EMS was called and he was brought to the ER. He was noted to have elevated troponin and ACS protocol was initiated. Patient has not had recurrence of chest pain since then. Interval history: No chest pain yesterday or this morning. No shortness of breath, dizziness, palpitations. Telemetry shows sinus rhythm with occasional PVCs. Review of Systems Review of Systems: A complete review of systems was performed and pertinent positives are reported in the HPI. Exam Narrative: General: Alert oriented x3, no acute distress Neck: Supple, no JVD Chest: Bilaterally clear to auscultation, no rales or rhonchi Cardiac: S1, S2 +, regular rate, regular rhythm, no murmurs or rubs Extremities: No pedal edema, no skin rash Neurologic: Alert and oriented x3, no focal neurological deficits Objective Data Vital Signs Vital Signs: Vital Signs - 24 hr 04/04/25 10:00 04/04/25 11:43 04/04/25 12:00 Temperature 36.6 C Pulse Rate 63 63 Respiratory Rate 17 Blood Pressure 118/81 Pulse Oximetry 99 Oxygen Delivery Room Air 04/04/25 12:00 04/04/25 14:00 04/04/25 16:00 Temperature 36.8 C Pulse Rate 63 65 56 L Respiratory Rate 19 Blood Pressure 111/72 Pulse Oximetry 97 Oxygen Delivery 04/04/25 16:00 04/04/25 16:00 04/04/25 18:00 Temperature Pulse Rate 56 L 60 Respiratory Rate Blood Pressure Pulse Oximetry Oxygen Delivery Room Air 04/04/25 20:00 04/04/25 20:00 04/04/25 20:00 Temperature 36.8 C Pulse Rate 61 60 60 Respiratory Rate 21 H 21 H Blood Pressure 136/70 Pulse Oximetry 98 98 Oxygen Delivery Room Air 04/04/25 21:51 04/04/25 23:44 04/04/25 23:44 Temperature Pulse Rate 56 L 55 L 55 L Respiratory Rate 21 H Blood Pressure Pulse Oximetry 98 Oxygen Delivery Room Air 04/05/25 00:00 04/05/25 02:00 04/05/25 04:00 Temperature 36.7 C 36.9 C Pulse Rate 64 56 L 65 Respiratory Rate 21 H 23 H Blood Pressure 117/73 108/68 Pulse Oximetry 94 96 Oxygen Delivery 04/05/25 04:00 04/05/25 04:00 04/05/25 06:00 Temperature Pulse Rate 53 L 53 L 58 L Respiratory Rate 23 H Blood Pressure Pulse Oximetry 96 Oxygen Delivery Room Air 04/05/25 08:00 Temperature 36.6 C Pulse Rate 60 Respiratory Rate 20 Blood Pressure 121/77 Pulse Oximetry 96 Oxygen Delivery Intake/Output Intake/Output: Intake & Output 04/02/25 04/03/25 04/04/25 04/05/25 23:59 23:59 23:59 23:59 Intake Total 63 1762.4 1855.8 242.2 Output Total 1850 Balance 63 -87.6 1855.8 242.2 Meds/Results Medications: Active Medications Generic Name Dose Route Start Last Admin Trade Name Freq PRN Reason Stop Dose Admin Aspirin 81 mg 04/04/25 09:00 04/04/25 08:27 Aspirin 81 Mg Enteric Tablet PO 81 mg QAM KALLIE Administration Atorvastatin Calcium 40 mg 04/03/25 09:00 04/04/25 08:27 Atorvastatin 40 Mg Tablet PO 40 mg DAILY KALLIE Administration Clopidogrel Bisulfate 75 mg 04/04/25 09:00 04/04/25 08:27 Clopidogrel Bisulfate 75 Mg Tablet PO 75 mg QAM KALLIE Administration Dextrose 12.5 gm 04/02/25 18:47 Dextrose 50% 25 Gm/50 Ml Syringe IV PUSH PRN PRN Hypoglycemia Protocol Glucagon 1 mg 04/02/25 18:47 Glucagon For Inj 1 Mg Vial IM PRN PRN Hypoglycemia Protocol Glucose 15 gm 04/02/25 18:47 Glucose Oral Gel 15 Gm Of Glucse In 37.5 Gm Tube PO PRN PRN Hypoglycemia Protocol Heparin Sodium (Porcine) 4,000 units 04/02/25 16:18 04/02/25 22:55 Heparin Sodium 5,000 Units/Ml Vial IV PUSH 4,000 units PRN PRN Administration aPTT less than 55 seconds Heparin Sodium (Porcine) 3,500 units 04/02/25 16:18 04/04/25 16:52 Heparin Sodium 5,000 Units/Ml Vial IV PUSH 3,500 units PRN PRN Administration aPTT 55 - 70 seconds Heparin Sodium/Dextrose 25,000 units in 250 mls @ 14 mls/hr 04/02/25 16:20 04/05/25 06:03 Heparin Sodium/D5w 100 Units/Ml IV CONT 1,400 units/hr .[id number] KALLIE 14 mls/hr Protocol Titration 1,400 UNITS/HR Dextrose 1,000 mls @ 100 mls/hr 04/02/25 18:47 Dextrose 5% 1,000 Ml IVPB PRN PRN Hypoglycemia Protocol Lactated Ringer's 1,000 mls @ 75 mls/hr 04/05/25 08:00 Lr - Lactated Ringers Iv IV CONT .[id number] [facility] Levothyroxine Sodium 25 mcg 04/03/25 06:30 04/05/25 05:58 Levothyroxine Sodium 25 Mcg Tablet PO 25 mcg DAILY@0630 KALLIE Administration Metoprolol Succinate 12.5 mg 04/03/25 09:00 04/04/25 08:29 Metoprolol Succinate Ext Rel 12.5 Mg Tabcr PO 12.5 mg QAM KALLIE Administration Nitroglycerin 0.4 mg 04/02/25 19:53 Nitroglycerin Sl 0.4 Mg Tablet SUBLINGUAL Q5MIN PRN Chest Pain Pantoprazole Sodium 20 mg 04/03/25 10:10 04/04/25 08:26 Pantoprazole Sod Sesquihydrate 20 Mg Tab PO 20 mg QAM KALLIE Administration Telmisartan 80 mg 04/03/25 09:00 04/04/25 08:25 Telmisartan 40 Mg Tablet PO 80 mg DAILY KALLIE Administration Radiology Results: ITS Impressions Chest X-Ray 04/02/25 15:55 Impression: No acute cardiopulmonary abnormality. Labs Labs: Laboratory Results - last 24 hr 04/04/25 04/04/25 04/05/25 15:40 22:50 05:30 WBC 10.4 H RBC 4.65 Hgb 14.6 Hct 43.3 MCV 93.1 MCH 31.4 MCHC 33.7 RDW 12.1 Plt Count 224 MPV 9.6 Immature Gran % (Auto) 0.5 Neut % (Auto) 67.5 Lymph % (Auto) 20.5 [place] % (Auto) 8.3 Eos % (Auto) 2.4 Baso % (Auto) 0.8 Lymph # (Auto) 2.14 [place] # (Auto) 0.9 H Eos # (Auto) 0.3 Baso # (Auto) 0.1 Abs Immat Gran (auto) 0.05 H Absolute Neuts (auto) 7.0 H Absolute Nucleated RBC 0.000 Nucleated RBC % 0.0 APTT 69.9 H 116.2 H 80.5 H Sodium 133 L Potassium 4.3 Chloride 105 Carbon Dioxide 27 Anion Gap 1 L BUN 24 H Creatinine 1.51 H Estim Creat Clear Calc 50 Estimated GFR 46 L Glucose 102 Calcium 9.0 Total Bilirubin 0.9 AST 31 ALT 21 Alkaline Phosphatase 62 Total Protein 6.5 Albumin 3.7
--- NOTE | 2025-04-05 09:07 | WPDMODSED ---
Moderate Sedation Note-Pt Data Patient Data Allergies Allergy/AdvReac Type Severity Reaction Status Date / Time No Known Allergies Allergy Verified 04/02/25 18:31 Home Medications ?Medication ?Instructions ?Recorded ?Confirmed ?Type levothyroxine 25 mcg tablet 25 mcg PO DAILY 04/02/25 04/02/25 History telmisartan 80 mg tablet 80 mg PO DAILY 04/02/25 04/02/25 History Current Medications: Active Medications Aspirin (Aspirin 81 Mg Enteric Tablet) 81 mg PO [facility] Last Admin: 04/04/25 08:27 Dose: 81 mg Atorvastatin Calcium (Atorvastatin 40 Mg Tablet) 40 mg PO DAILY [facility] Last Admin: 04/04/25 08:27 Dose: 40 mg Clopidogrel Bisulfate (Clopidogrel Bisulfate 75 Mg Tablet) 75 mg PO [facility] Last Admin: 04/04/25 08:27 Dose: 75 mg Dextrose (Dextrose 50% 25 Gm/50 Ml Syringe) 12.5 gm IV PUSH PRN PRN; Protocol PRN Reason: Hypoglycemia Glucagon (Glucagon For Inj 1 Mg Vial) 1 mg IM PRN PRN; Protocol PRN Reason: Hypoglycemia Glucose (Glucose Oral Gel 15 Gm Of Glucse In 37.5 Gm Tube) 15 gm PO PRN PRN; Protocol PRN Reason: Hypoglycemia Heparin Sodium (Porcine) (Heparin Sodium 5,000 Units/Ml Vial) 4,000 units IV PUSH PRN PRN PRN Reason: aPTT less than 55 seconds Last Admin: 04/02/25 22:55 Dose: 4,000 units Heparin Sodium (Porcine) (Heparin Sodium 5,000 Units/Ml Vial) 3,500 units IV PUSH PRN PRN PRN Reason: aPTT 55 - 70 seconds Last Admin: 04/04/25 16:52 Dose: 3,500 units Heparin Sodium/Dextrose (Heparin Sodium/D5w 100 Units/Ml) 25,000 units in 250 mls @ 14 mls/hr IV CONT .[id number] [facility]; Protocol Last Titration: 04/05/25 06:03 Dose: 1,400 units/hr, 14 mls/hr Dextrose (Dextrose 5% 1,000 Ml) 1,000 mls @ 100 mls/hr IVPB PRN PRN; Protocol PRN Reason: Hypoglycemia Lactated Ringer's (Lr - Lactated Ringers Iv) 1,000 mls @ 75 mls/hr IV CONT .[id number] [facility] Levothyroxine Sodium (Levothyroxine Sodium 25 Mcg Tablet) 25 mcg PO DAILY@0630 [facility] Last Admin: 04/05/25 05:58 Dose: 25 mcg Metoprolol Succinate (Metoprolol Succinate Ext Rel 12.5 Mg Tabcr) 12.5 mg [facility] Last Admin: 04/04/25 08:29 Dose: 12.5 mg Nitroglycerin (Nitroglycerin Sl 0.4 Mg Tablet) 0.4 mg SUBLINGUAL Q5MIN PRN PRN Reason: Chest Pain Pantoprazole Sodium (Pantoprazole Sod Sesquihydrate 20 Mg Tab) 20 mg [facility] Last Admin: 04/04/25 08:26 Dose: 20 mg Telmisartan (Telmisartan 40 Mg Tablet) 80 mg PO DAILY [facility] Last Admin: 04/04/25 08:25 Dose: 80 mg Sedation/Anesthesia: No previous sedation/anesthesia problems (including family history). [facility] Past Medical History Medical History (Updated 04/02/25 @ 23:14 by Annmarie Karimi APRN) Gastric ulcer Coffee ground emesis Acute blood loss anemia Melena No significant past medical history Surgical History Surgical History (Updated 08/24/21 @ 02:28 by Jeana Gray DO) History of left inguinal hernia repair History of umbilical hernia repair Family History Family History Mother Acute myocardial infarction, Onset Age: 49 Father , in his 70's Diabetes mellitus Peripheral vascular disease End stage renal disease on dialysis due to type 2 diabetes mellitus Sibling Acute myocardial infarction Social History Social History (Updated 08/24/21 @ 02:36 by Jeana Gray DO) Social History: Code status: Full code Surrogate decision maker: Smoking packs per day: 1.5 Smoking cigarettes per day: 30.0 Years smoked: 30 Smoking pack-years: 45.00 Smoking status: Former smoker Second hand tobacco smoke exposure: Yes Additional smoking assessment comments: pt smokes pot 4x week Alcohol intake: never Substance use: current Substance use type: marijuana Last use: 08/22/21 Lack of Transportation: No Lack of Food: Never True Current Housing: I Have Housing Concerned About Future Housing: No Difficulty Paying Gas/Electric Bills: No Difficulty Paying for Meds: No Currently Unemployed: No Education: High School Diploma/GED Difficulty w/ Childcare or Family Care: No Living arrangements: with family Additional living arrangements comments: He has 2 children and 7 grandchildren. He lives with his of 40 years. 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 Gender identity (if verbalized by the patient): Male Sexual Orientation (if Verbalized by the Patient): Straight or Heterosexual Spiritual care concerns: No Agree to blood products: Yes Mod Sed Physical Exam Physical Exam Pre Procedural Exam: Normal: Lungs, Heart Size, Heart Rate and Heart Rhythm Hours since solid foods: 12 Hours since liquid intake: 12 Mallampati Classification: class II Internal Medicine - PN: Obj Da Vital Signs Vital Signs: Vital Signs - 24 hr 04/04/25 10:00 04/04/25 11:43 04/04/25 12:00 Temperature 36.6 C Pulse Rate 63 63 Respiratory Rate 17 Blood Pressure 118/81 Pulse Oximetry 99 Oxygen Delivery Room Air 04/04/25 12:00 04/04/25 14:00 04/04/25 16:00 Temperature 36.8 C Pulse Rate 63 65 56 L Respiratory Rate 19 Blood Pressure 111/72 Pulse Oximetry 97 Oxygen Delivery 04/04/25 16:00 04/04/25 16:00 04/04/25 18:00 Temperature Pulse Rate 56 L 60 Respiratory Rate Blood Pressure Pulse Oximetry Oxygen Delivery Room Air 04/04/25 20:00 04/04/25 20:00 04/04/25 20:00 Temperature 36.8 C Pulse Rate 61 60 60 Respiratory Rate 21 H 21 H Blood Pressure 136/70 Pulse Oximetry 98 98 Oxygen Delivery Room Air 04/04/25 21:51 04/04/25 23:44 04/04/25 23:44 Temperature Pulse Rate 56 L 55 L 55 L Respiratory Rate 21 H Blood Pressure Pulse Oximetry 98 Oxygen Delivery Room Air 04/05/25 00:00 04/05/25 02:00 04/05/25 04:00 Temperature 36.7 C 36.9 C Pulse Rate 64 56 L 65 Respiratory Rate 21 H 23 H Blood Pressure 117/73 108/68 Pulse Oximetry 94 96 Oxygen Delivery 04/05/25 04:00 04/05/25 04:00 04/05/25 06:00 Temperature Pulse Rate 53 L 53 L 58 L Respiratory Rate 23 H Blood Pressure Pulse Oximetry 96 Oxygen Delivery Room Air 04/05/25 08:00 Temperature 36.6 C Pulse Rate 60 Respiratory Rate 20 Blood Pressure 121/77 Pulse Oximetry 96 Oxygen Delivery Intake/Output Intake/Output: Intake & Output 04/02/25 04/03/25 04/04/25 04/05/25 23:59 23:59 23:59 23:59 Intake Total 63 1762.4 1855.8 242.2 Output Total 1850 Balance 63 -87.6 1855.8 242.2 Meds/Results Medications: Active Medications Generic Name Dose Route Start Last Admin Trade Name Freq PRN Reason Stop Dose Admin Aspirin 81 mg 04/04/25 09:00 04/04/25 08:27 Aspirin 81 Mg Enteric Tablet PO 81 mg QAM KALLIE Administration Atorvastatin Calcium 40 mg 04/03/25 09:00 04/04/25 08:27 Atorvastatin 40 Mg Tablet PO 40 mg DAILY KALLIE Administration Clopidogrel Bisulfate 75 mg 04/04/25 09:00 04/04/25 08:27 Clopidogrel Bisulfate 75 Mg Tablet PO 75 mg QAM KALLIE Administration Dextrose 12.5 gm 04/02/25 18:47 Dextrose 50% 25 Gm/50 Ml Syringe IV PUSH PRN PRN Hypoglycemia Protocol Glucagon 1 mg 04/02/25 18:47 Glucagon For Inj 1 Mg Vial IM PRN PRN Hypoglycemia Protocol Glucose 15 gm 04/02/25 18:47 Glucose Oral Gel 15 Gm Of Glucse In 37.5 Gm Tube PO PRN PRN Hypoglycemia Protocol Heparin Sodium (Porcine) 4,000 units 04/02/25 16:18 04/02/25 22:55 Heparin Sodium 5,000 Units/Ml Vial IV PUSH 4,000 units PRN PRN Administration aPTT less than 55 seconds Heparin Sodium (Porcine) 3,500 units 04/02/25 16:18 04/04/25 16:52 Heparin Sodium 5,000 Units/Ml Vial IV PUSH 3,500 units PRN PRN Administration aPTT 55 - 70 seconds Heparin Sodium/Dextrose 25,000 units in 250 mls @ 14 mls/hr 04/02/25 16:20 04/05/25 06:03 Heparin Sodium/D5w 100 Units/Ml IV CONT 1,400 units/hr .[id number] KALLIE 14 mls/hr Protocol Titration 1,400 UNITS/HR Dextrose 1,000 mls @ 100 mls/hr 04/02/25 18:47 Dextrose 5% 1,000 Ml IVPB PRN PRN Hypoglycemia Protocol Lactated Ringer's 1,000 mls @ 75 mls/hr 04/05/25 08:00 Lr - Lactated Ringers Iv IV CONT .[id number] KALLIE Levothyroxine Sodium 25 mcg 04/03/25 06:30 04/05/25 05:58 Levothyroxine Sodium 25 Mcg Tablet PO 25 mcg DAILY@0630 KALLIE Administration Metoprolol Succinate 12.5 mg 04/03/25 09:00 04/04/25 08:29 Metoprolol Succinate Ext Rel 12.5 Mg Tabcr PO 12.5 mg QAM KALLIE Administration Nitroglycerin 0.4 mg 04/02/25 19:53 Nitroglycerin Sl 0.4 Mg Tablet SUBLINGUAL Q5MIN PRN Chest Pain Pantoprazole Sodium 20 mg 04/03/25 10:10 04/04/25 08:26 Pantoprazole Sod Sesquihydrate 20 Mg Tab PO 20 mg QAM KALLIE Administration Telmisartan 80 mg 04/03/25 09:00 04/04/25 08:25 Telmisartan 40 Mg Tablet PO 80 mg DAILY KALLIE Administration Radiology Results: ITS Impressions Chest X-Ray 04/02/25 15:55 Impression: No acute cardiopulmonary abnormality. Labs 04/05/25 05:30 04/05/25 05:30 Labs: Laboratory Results - last 24 hr 04/04/25 04/04/25 04/05/25 15:40 22:50 05:30 WBC 10.4 H RBC 4.65 Hgb 14.6 Hct 43.3 MCV 93.1 MCH 31.4 MCHC 33.7 RDW 12.1 Plt Count 224 MPV 9.6 Immature Gran % (Auto) 0.5 Neut % (Auto) 67.5 Lymph % (Auto) 20.5 Duval % (Auto) 8.3 Eos % (Auto) 2.4 Baso % (Auto) 0.8 Lymph # (Auto) 2.14 Duval # (Auto) 0.9 H Eos # (Auto) 0.3 Baso # (Auto) 0.1 Abs Immat Gran (auto) 0.05 H Absolute Neuts (auto) 7.0 H Absolute Nucleated RBC 0.000 Nucleated RBC % 0.0 APTT 69.9 H 116.2 H 80.5 H Sodium 133 L Potassium 4.3 Chloride 105 Carbon Dioxide 27 Anion Gap 1 L BUN 24 H Creatinine 1.51 H Estim Creat Clear Calc 50 Estimated GFR 46 L Glucose 102 Calcium 9.0 Total Bilirubin 0.9 AST 31 ALT 21 Alkaline Phosphatase 62 Total Protein 6.5 Albumin 3.7 ASA Classification/Sedation ASA Classification/Sedation ASA Class: III Emergent: No Risks: Risks, benefits and alternatives explained and patient/family accepted plan for sedation. Patient re-evaluated immediately prior to sedation.
--- NOTE | 2025-04-05 09:08 | P.PCNCC_ITS ---
Cardiac Cath Procedure Note Date of procedure:: 04/05/25 Performing physician:: Kerry Farfan MD Indication:: CATHETERIZATION LABORATORY REPORT Procedure Date: Referring Physician: Anesthesia: Versed and Fentanyl were ordered and given in my presence at , procedure ended at . Supervision of nurse monitored moderate sedation with Versed and Fentanyl was provided for minutes. Pre-op Diagnosis: Post-op Diagnosis: Procedure(s): Left heart catheterization with coronary angiography Access Site: Right radial artery Brief History and Clinical Indications: All risks, benefits and alternatives to left heart catheterization with or without percutaneous coronary intervention was discussed at length with the patient. Risk of complications including but not limited to bleeding, infection, arrhythmia, stroke, worsening kidney function, blood loss, groin hematoma, limb loss, emergency coronary artery bypass grafting, and even were discussed with the patient and all questions were answered. The patient understood and wished to proceed. Time out called, patient name, date of , medical record number, allergies, procedure performed, identify Cost Control Supervisor, patient and staff member concurred with accurate data, procedure carried on. Findings: LEFT HEART CATHETERIZATION FINDINGS: 1. Left main: The left main coronary artery is widely patent without any significant obstructive disease. 2. Left anterior descending: The LAD and the diagonal branches have mild luminal irregularities without any significant obstructive angiographic disease. 3. Left circumflex: The left circumflex artery and the main marginal branches have mild luminal irregularities without any significant obstructive angiographic disease. 4. Right coronary artery: The RCA has mild luminal irregularities without any significant obstructive angiographic disease. The RCA is the dominant vessel. 5. Left ventricle: A. End-diastolic pressure mmHg. B. LV gram deferred. C. No significant gradient across aortic valve on catheter pullback. 6. Opening AO pressure and closing AO pressure RIGHT HEART CATHETERIZATION FINDINGS: Pressures (mmHg): RA: RV: PA: PCWP: Saturations (%): PA: Arterial: CO/CI: Jany: Thermo: PVR (MADRIGAL): Jany: Thermo: Description of Procedure: Informed consent signed and placed in the chart. ? Patient transferred to poultry hatchery laborer room. ? Prepped and draped in usual sterile fashion. ? 2% lidocaine injected subcutaneously in area. vein was accessed using micropuncture technique. -FR sheath placed. F Renwick-Bandar catheter was advanced into the right side of the heart chambers and pressures were measured. Hemostasis was achieved by manual pressure. Informed consent signed and placed in the chart. Patient transferred to poultry hatchery laborer room. Prepped and draped in usual sterile fashion. 2% lidocaine in right groin area. Micropuncture needle used to access right common femoral artery with Seldinger technique under fluoroscopic guidance. J wire advanced, micropuncture cannula placed. Right iliofemoral angiogram performed, access confirmed and micropuncture cannula exchanged for 6-FR sheath. ? diagnostic catheter engaged Left Main Coronary Artery. diagnostic catheter engaged Right Coronary Artery. Multiple orthogonal angiogram obtained and reviewed diagnostic catheter crossed aortic valve to obtain LVEDP, LV angiogram deferred. Hemostasis was achieved by Informed consent signed and placed in the chart. ? Patient transferred to poultry hatchery laborer room. ? Prepped and draped in usual sterile fashion. ? 2% lidocaine injected subcutaneously in right wrist area. 22-gauge venipuncture catheter used to access the right radial artery with the Seldinger technique. 6-FR slender sheath placed in right radial artery. Nitroglycerin 200mcg, Verapamil 2.5mg, and Heparin 5000U was given intraarterial through the sheath. J wire advanced under fluoroscopy diagnostic catheter engaged Left Main Coronary Artery. diagnostic catheter engaged Right Coronary Artery Multiple orthogonal angiogram obtained and reviewed diagnostic catheter crossed aortic valve to obtain LVEDP, LV angiogram deferred. Hemostasis was achieved by application of TR band. Procedure Description for PCI: Heparin was used for anticoagulation (ACT maintained above 250) Patient loaded with heparin at 70 units/kg. F ?guide catheter was used to intubate the 0.014 coronary wire was passed in to the The lesion was pre-dilated with a mm?x mm balloon inflated to high MÓNICA A mm x ?mm DMITRY was successfully deployed into The stent was post-dilated with a mm?x ?mm NC balloon inflated to high MÓNICA Intracoronary NTG was administered Follow-up angiograms showed an excellent result Coronary wire and guide-catheter were removed Pre-procedure - ANASTACIA ?flow Post-procedure - ANASTACIA 3 flow No angiographic complications identified. Assessment: Post Operative Condition: Stable No significant blood loss Disposition: Floor/Home Plan: The patient will be monitored in the recovery area. DAPT for 1 year followed by ASA indefinitely. The above findings were discussed with the referring physician. Continue aggressive medical therapy and risk factor modification. Further recommendations and management per primary cardiology team. Kerry Farfan MD, MS, FACC, [facility] Interventional Cardiology
--- NOTE | 2025-04-05 09:08 | WPDHPUPDATE1 ---
History and Physical Update Update Date/Time: 04/05/25 09:08 History and Physical has been reviewed, including an updated exam of the patient. There are NO changes in the patient's condition. Risks, benefits, and alternatives have been discussed and questions answered. Patient agrees to proceed with procedure.
[2025-04-05] MEDS: ATORVASTATIN 40 MG TABLET PO (09:30)
[2025-04-05] MEDS: PANTOPRAZOLE SOD SESQUIHYDRATE 20 MG TAB PO (09:30)
[2025-04-05] MEDS: LACTATED RINGERS 1,000 ML 75 ML IV CONT ×2 (09:30→21:12)
[2025-04-05] MEDS: ASPIRIN 81 MG ENTERIC TABLET PO (09:30)
[2025-04-05] MEDS: CLOPIDOGREL BISULFATE 75 MG TABLET PO (09:30)
[2025-04-05] MEDS: TELMISARTAN 40 MG TABLET 80 MG PO (09:31)
[2025-04-05] MEDS: METOPROLOL SUCCINATE EXT REL 12.5 MG TABCR PO (09:31)
[2025-04-05 12:38] LABS: Partial Thromboplastin Time 54.2 Seconds (22.3-36.8)
--- NOTE | 2025-04-05 16:40 | P.PNIM_ITS ---
Assessment and Plan Assessment and Plan (1) Acute non-ST elevation myocardial infarction (NSTEMI): Code(s): I21.4 - Non-ST elevation (NSTEMI) myocardial infarction Status: Acute Assessment and Plan: Sharp pain to his left chest with some associated tingling to his left hand. Pain briefly subsided before returning with associated diaphoresis and left arm heaviness. Patient did vomit. - EKG, initial: read by ED provider reads normal sinus rhythm with normal axis. NE normal. QRS duration normal. QTc normal. No pathologic Q waves. No ST segment elevation or depression to suggest acute ischemia. No RV strain pattern. BUN 29, BNP 344. - EKG, repeat (1): Sinus rhythm, incomplete right BBB - CXR: No acute cardiopulmonary process - Troponin: 0.561 -1.930-3.550 - 324 ASA with EMS - SL nitro PRN - cardiology consulted: cath 04/05, also started aspirin, clopidogrel, and PPI as patient has history of GI bleed 3 years ago. - started on heparin gtt - start atorvastatin 40 mg daily - lipid panel pending - telemetry monitoring -cath results pending (2) Acute kidney injury: Code(s): N17.9 - Acute kidney failure, unspecified Status: Acute Assessment and Plan: Cr 1.76 on admission. baseline creatinine 1.0 to 1.1. Patient appears euvolemic on exam. Now 1.51. On review of prior labs, could be more element of CKD -continue to trend renal function -IV LR @ 75cc/hr started given cardiac cath -avoid nephrotoxic agents -renal dosing of drugs as needed (3) Hypothyroidism: Qualifiers: Hypothyroidism type: unspecified Qualified Code(s): E03.9 - Hypothyroidism, unspecified Code(s): E03.9 - Hypothyroidism, unspecified Status: Chronic Assessment and Plan: Continue levothyroxine (4) Hypertension: Qualifiers: Hypertension type: primary hypertension Qualified Code(s): I10 - Essential (primary) hypertension Code(s): I10 - Essential (primary) hypertension Status: Chronic Assessment and Plan: Continue telmisartan Plan Follow cardiology recommendations DVT prophylaxis: Heparin drip Diet: Heart healthy Medical Record Review I have reviewed the following patient records and this information was taken into consideration when formulating the assessment and plan.: previous labs and previous hospitalizations Consultations Consultations: I have discussed the care of this pt with the consulting providers. Subjective Date/time seen: 04/05/25 16:40 Interval history: 69-year-old male with a past medical history of hypertension, peptic ulcer disease presents to the ED on 04/02/2025 with complaints of chest pain. Patient went to the gym this morning as he does every day. While on the treadmill he started to have sharp pain to his left chest with some associated tingling to his left hand. He has never experienced these symptoms before. The pain subsided and he finished his 6 mi walk. Patient went home and ate lunch. After a while he became diaphoretic with the return of the left chest pain with associated left arm heaviness. He ended up vomiting. His checked his blood pressure and found it to be elevated. EMS was subsequently called. Three hundred twenty-four aspirin given in route to the ED. Patient does have a history of hypertension but no known cardiac disease. He does have a strong family history with multiple family members with CAD. On arrival to the ED, patient's chest pain has subsided. Initial vital signs 176/97, HR 67, respirations 20, afebrile. Hematology without leukocytosis. Sodium 136, BUN 29, creatinine 1.76, GFR 39. Glucose 168. BNP 344. Initial troponin 0.561. Initial EKG read by ED provider reads normal sinus rhythm with normal axis. NE normal. QRS duration normal. QTc normal. No pathologic Q waves. No ST segment elevation or depression to suggest acute ischemia. No RV strain pattern. Chest x-ray with no acute cardiopulmonary abnormality. Review of Systems Review of Systems: All systems reviewed & are unremarkable except as noted in HPI and below Exam Narrative: GENERAL: non-toxic appearing, in no acute distress. HEAD: Normocephalic, atraumatic. EYES: PERRLA. Conjunctivae clear. NOSE: Normal no drainage. THROAT: Pharynx clear, no exudate. NECK: Trachea midline. No adenopathy, no masses. RESPIRATORY: Airway patent, respirations nonlabored. CTA. CARDIOVASCULAR: Regular rate and rhythm GASTROINTESTINAL: Abdomen is soft and nontender. No organomegaly. Bowel sounds normal in all quadrants. GENITOURINARY: Defer MUSCULOSKELETAL: Moves all extremities. No gross deformities. SKIN: Warm, dry, normal color. NEURO: A&O X4. Speech clear PSYCHIATRIC: Normal interaction Objective Data Vital Signs Vital Signs: Vital Signs - 24 hr 04/04/25 18:00 04/04/25 20:00 04/04/25 20:00 Temperature 98.3 F Pulse Rate 60 61 60 Respiratory Rate 21 H 21 H Blood Pressure 136/70 Pulse Oximetry 98 98 Oxygen Delivery Room Air 04/04/25 20:00 04/04/25 21:51 04/04/25 23:44 Temperature Pulse Rate 60 56 L 55 L Respiratory Rate 21 H Blood Pressure Pulse Oximetry 98 Oxygen Delivery Room Air 04/04/25 23:44 04/05/25 00:00 04/05/25 02:00 Temperature 98.1 F Pulse Rate 55 L 64 56 L Respiratory Rate 21 H Blood Pressure 117/73 Pulse Oximetry 94 Oxygen Delivery 04/05/25 04:00 04/05/25 04:00 04/05/25 04:00 Temperature 98.4 F Pulse Rate 65 53 L 53 L Respiratory Rate 23 H 23 H Blood Pressure 108/68 Pulse Oximetry 96 96 Oxygen Delivery Room Air 04/05/25 06:00 04/05/25 08:00 04/05/25 08:00 Temperature 97.8 F Pulse Rate 58 L 60 Respiratory Rate 20 Blood Pressure 121/77 Pulse Oximetry 96 Oxygen Delivery Room Air 04/05/25 08:00 04/05/25 09:31 04/05/25 10:00 Temperature Pulse Rate 63 56 L 53 L Respiratory Rate Blood Pressure Pulse Oximetry Oxygen Delivery 04/05/25 11:45 04/05/25 12:00 04/05/25 12:22 Temperature 97.5 F L Pulse Rate 55 L 57 L Respiratory Rate 18 Blood Pressure 91/57 L Pulse Oximetry 99 Oxygen Delivery Room Air 04/05/25 14:00 04/05/25 16:00 Temperature 97.8 F Pulse Rate 97 50 L Respiratory Rate 20 Blood Pressure 136/83 Pulse Oximetry 97 Oxygen Delivery Intake/Output Intake/Output: Intake & Output 04/02/25 04/03/25 04/04/25 04/05/25 23:59 23:59 23:59 23:59 Intake Total 63 1762.4 1855.8 581.8 Output Total 1850 Balance 63 -87.6 1855.8 581.8 Meds/Results Medications: Active Medications Generic Name Dose Route Start Last Admin Trade Name Freq PRN Reason Stop Dose Admin Aspirin 81 mg 11/30/25 09:00 04/05/25 09:30 Aspirin 81 Mg Enteric Tablet PO 81 mg QAM KALLIE Administration Atorvastatin Calcium 40 mg 04/03/25 09:00 04/05/25 09:30 Atorvastatin 40 Mg Tablet PO 40 mg DAILY KALLIE Administration Clopidogrel Bisulfate 75 mg 04/04/25 09:00 04/05/25 09:30 Clopidogrel Bisulfate 75 Mg Tablet PO 75 mg QAM KALLIE Administration Dextrose 12.5 gm 04/02/25 18:47 Dextrose 50% 25 Gm/50 Ml Syringe IV PUSH PRN PRN Hypoglycemia Protocol Glucagon 1 mg 04/02/25 18:47 Glucagon For Inj 1 Mg Vial IM PRN PRN Hypoglycemia Protocol Glucose 15 gm 04/02/25 18:47 Glucose Oral Gel 15 Gm Of Glucse In 37.5 Gm Tube PO PRN PRN Hypoglycemia Protocol Heparin Sodium (Porcine) 4,000 units 04/02/25 16:18 04/05/25 13:10 Heparin Sodium 5,000 Units/Ml Vial IV PUSH 4,000 units PRN PRN Administration aPTT less than 55 seconds Heparin Sodium (Porcine) 3,500 units 04/02/25 16:18 04/04/25 16:52 Heparin Sodium 5,000 Units/Ml Vial IV PUSH 3,500 units PRN PRN Administration aPTT 55 - 70 seconds Heparin Sodium/Dextrose 25,000 units in 250 mls @ 17 mls/hr 04/02/25 16:20 04/05/25 13:10 Heparin Sodium/D5w 100 Units/Ml IV CONT 1,700 units/hr .[id number] KALLIE 17 mls/hr Protocol Titration 1,700 UNITS/HR Dextrose 1,000 mls @ 100 mls/hr 04/02/25 18:47 Dextrose 5% 1,000 Ml IVPB PRN PRN Hypoglycemia Protocol Lactated Ringer's 1,000 mls @ 75 mls/hr 04/05/25 08:00 04/05/25 09:30 Lr - Lactated Ringers Iv IV CONT 75 mls/hr .[id number] KALLIE Administration Levothyroxine Sodium 25 mcg 04/03/25 06:30 04/05/25 05:58 Levothyroxine Sodium 25 Mcg Tablet PO 25 mcg DAILY@0630 KALLIE Administration Metoprolol Succinate 12.5 mg 04/03/25 09:00 04/05/25 09:31 Metoprolol Succinate Ext Rel 12.5 Mg Tabcr PO 12.5 mg QAM KALLIE Administration Nitroglycerin 0.4 mg 04/02/25 19:53 Nitroglycerin Sl 0.4 Mg Tablet SUBLINGUAL Q5MIN PRN Chest Pain Pantoprazole Sodium 20 mg 04/03/25 10:10 04/05/25 09:30 Pantoprazole Sod Sesquihydrate 20 Mg Tab PO 20 mg QAM KALLIE Administration Telmisartan 80 mg 04/03/25 09:00 04/05/25 09:31 Telmisartan 40 Mg Tablet PO 80 mg DAILY KALLIE Administration Radiology Results: ITS Impressions Chest X-Ray 04/05/25 11:14 IMPRESSION: 1: NO ACUTE CARDIOPULMONARY DISEASE. Renal Ultrasound 04/05/25 12:36 Impression: 1: Right renal cyst measuring 2.7 cm. Labs Labs: Laboratory Results - last 24 hr 04/04/25 04/05/25 04/05/25 22:50 05:30 12:12 WBC 10.4 H RBC 4.65 Hgb 14.6 Hct 43.3 MCV 93.1 MCH 31.4 MCHC 33.7 RDW 12.1 Plt Count 224 MPV 9.6 Immature Gran % (Auto) 0.5 Neut % (Auto) 67.5 Lymph % (Auto) 20.5 [place] % (Auto) 8.3 Eos % (Auto) 2.4 Baso % (Auto) 0.8 Lymph # (Auto) 2.14 [place] # (Auto) 0.9 H Eos # (Auto) 0.3 Baso # (Auto) 0.1 Abs Immat Gran (auto) 0.05 H Absolute Neuts (auto) 7.0 H Absolute Nucleated RBC 0.000 Nucleated RBC % 0.0 APTT 116.2 H 80.5 H 54.2 H Sodium 133 L Potassium 4.3 Chloride 105 Carbon Dioxide 27 Anion Gap 1 L BUN 24 H Creatinine 1.51 H Estim Creat Clear Calc 50 Estimated GFR 46 L Glucose 102 Calcium 9.0 Total Bilirubin 0.9 AST 31 ALT 21 Alkaline Phosphatase 62 Total Protein 6.5 Albumin 3.7 Hospitalist MIPS Advance Care Plan I have confirmed that the patient's Advanced Care Plan is present, code status is documented, or surrogate decision maker is listed in patient medical record.: Yes Medication Reconciliation I have utilized all available resources to obtain, update and review the patients current medications (includes all prescriptions, OTC, herbals, cannabis, and nutritional supplements).: Yes
[2025-04-05 17:19] LABS: Total Protein Urine Random 7 mg/dL
[2025-04-05 17:23] LABS: Partial Thromboplastin Time 116.7 Seconds (22.3-36.8)
--- NOTE | 2025-04-05 17:43 | PC.NURSE ---
Patient is refusing to have PTT drawn the rest of his stay. This RN informed the MD of what patient states and his refusal to have further PTTs drawn.
[2025-04-05] MEDS: HEPARIN SOD/D5W 100 UNITS/ML 25,000 UNITS/250 ML BAG 15 UNITS IV CONT (19:59)
[2025-04-05 23:31] LABS: Partial Thromboplastin Time 139.8 Seconds (22.3-36.8)
[2025-04-06] VITALS (23 sets, daily range): BP systolic 96–148; BP diastolic 56–99; PULSE 46–60; RESP 15–25; TEMP 36.4–36.6; O2SAT 21–100
[2025-04-06] MEDS: HEPARIN SOD/D5W 100 UNITS/ML 25,000 UNITS/250 ML BAG 15 UNITS IV CONT (00:55)
[2025-04-06] MEDS: HEPARIN SOD/D5W 100 UNITS/ML 25,000 UNITS/250 ML BAG 12 UNITS IV CONT ×2 (02:26→02:38)
[2025-04-06 05:21] LABS: Hematocrit 39.5 % (42.0-52.0); Hemoglobin 13.6 g/dL (14.0-18.0); Immature Granulocyte Percent A 0.7 % (0-0.5); Lymphocytes Absolute Auto 1.43 K/mm3 (0.9-3.2); Mean Corpuscular HGB Conc 34.4 g/dl (32-36); Mean Corpuscular Hemoglobin 31.6 pg (26-34); Mean Corpuscular Volume 91.9 fl (80-100); Nucleated Red Blood Cells Absolute Auto 0.000 K/mm3 (0.0-0.012); Nucleated Red Blood Cells Perc 0.0 % (0.0-0.2); Platelet Count Result 207 k/mm3 (150-375); Red Blood Count 4.30 M/mm3 (4.6-6.20); White Blood Count 8.6 K/mm3 (4.5-10.0)
[2025-04-06 05:45] LABS: Alanine Aminotransferase 20 U/L (6-50); Albumin Level 3.4 g/dL (3.5-5.1); Alkaline Phosphatase 64 U/L (38-126); Anion Gap 0 mmol/L (4-12); Aspartate Amino Transferase 28 U/L (17-59); Bilirubin,Total 1.0 mg/dL (0.2-1.3); Blood Urea Nitrogen 25 mg/dL (9-20); Calcium 8.6 mg/dL (8.4-10.2); Carbon Dioxide 28 mmol/L (22-30); Chloride 106 mmol/L (98-107); Estimated CRCL calculation 52 ml/min; Estimated Glomerular Filt Rate 47; Glucose 97 mg/dL (65-110); Potassium 4.0 mmol/L (3.4-5.0); Sodium 134 mmol/L (137-145); Total Protein 6.0 g/dL (6.3-8.2)
[2025-04-06 05:50] LABS: Partial Thromboplastin Time 57.7 Seconds (22.3-36.8)
[2025-04-06] MEDS: LEVOTHYROXINE SODIUM 25 MCG TABLET PO (06:08)
--- NOTE | 2025-04-06 07:22 | PM.PNCARD ---
Progress Note: A&P Assessment and Plan (1) Acute non-ST elevation myocardial infarction (NSTEMI): Code(s): I21.4 - Non-ST elevation (NSTEMI) myocardial infarction Status: Acute (2) Hypertension: Qualifiers: Hypertension type: primary hypertension Qualified Code(s): I10 - Essential (primary) hypertension Code(s): I10 - Essential (primary) hypertension Status: Chronic Plan Assessment: NSTEMI Normal LVEF by echo with hypokinesis of apex, grade 1 diastolic dysfunction, no significant valvular pathology Hypertension-controlled History of gastric ulcer and GI bleed in 2021; no bleeding issues after that; hemoglobin 14.6 today CKD with baseline creatinine between 1.2 to 1.6 Plan: Continue heparin drip Continue aspirin, statin Continue metoprolol and telmisartan Cardiac catheterization not performed yesterday as creatinine was up to 1.5 from 1.3. IV fluids given and creatinine today 1.4. I reviewed creatinine values with patient and they range from 1.25 to 1.61 from 2020 to now. Proceed with cardiac catheterization today Risks, benefits, and alternatives of cardiac cath and possible PCI discussed with patient and he is willing to proceed Monitor on telemetry Check and replace electrolytes to keep potassium greater than 4 magnesium greater than 2 Subjective Date/time seen: 04/06/25 07:22 Interval history: Reason for encounter: NSTEMI Relevant history: 69-year-old male with past medical history of hypertension, gastric ulcer in 2021, hypothyroid presents with chief complaints of chest pain on Saturday while he was walking on the treadmill. Pain resolved with rest and record again after he reached home. EMS was called and he was brought to the ER. He was noted to have elevated troponin and ACS protocol was initiated. Patient has not had recurrence of chest pain since then. Interval history: No chest pain or shortness of breath, dizziness, palpitations. Telemetry shows sinus rhythm with occasional PVCs. He provided his creatinine values over the past few years all the way back to 2020 which he got from his MyChart. Creatinine ranges between 1.25 to 1.61 as below: 01/31/21: 1.38 05/31/21: 1.28 09/05/21: 1.38 10/19/21: 1.38 07/26/22: 1.25 07/23/23: 1.61 08/28/23: 1.36 08/24/24: 1.52 Review of Systems Review of Systems: A complete review of systems was performed and pertinent positives are reported in the HPI. Exam Narrative: General: Alert oriented x3, no acute distress Neck: Supple, no JVD Chest: Bilaterally clear to auscultation, no rales or rhonchi Cardiac: S1, S2 +, regular rate, regular rhythm, no murmurs or rubs Extremities: No pedal edema, no skin rash Neurologic: Alert and oriented x3, no focal neurological deficits Objective Data Vital Signs Vital Signs: Vital Signs - 24 hr 04/05/25 08:00 04/05/25 08:00 04/05/25 08:00 Temperature 36.6 C Pulse Rate 60 63 Respiratory Rate 20 Blood Pressure 121/77 Pulse Oximetry 96 Oxygen Delivery Room Air 04/05/25 09:31 04/05/25 10:00 04/05/25 11:45 Temperature Pulse Rate 56 L 53 L Respiratory Rate Blood Pressure Pulse Oximetry Oxygen Delivery Room Air 04/05/25 12:00 04/05/25 12:22 04/05/25 14:00 Temperature 36.4 C L Pulse Rate 55 L 57 L 97 Respiratory Rate 18 Blood Pressure 91/57 L Pulse Oximetry 99 Oxygen Delivery 04/05/25 16:00 04/05/25 16:00 04/05/25 16:00 Temperature 36.6 C Pulse Rate 50 L 60 60 Respiratory Rate 20 20 Blood Pressure 136/83 Pulse Oximetry 97 97 Oxygen Delivery Room Air 04/05/25 18:00 04/05/25 20:00 04/05/25 20:00 Temperature 36.4 C Pulse Rate 59 L 67 60 Respiratory Rate 20 Blood Pressure 98/77 L Pulse Oximetry 100 Oxygen Delivery 04/05/25 22:00 04/06/25 00:00 04/06/25 00:00 Temperature 36.5 C Pulse Rate 50 L 55 L 49 L Respiratory Rate 18 Blood Pressure 103/56 L Pulse Oximetry 96 Oxygen Delivery 04/06/25 01:57 04/06/25 04:00 04/06/25 04:00 Temperature 36.4 C L Pulse Rate 52 L 50 L 54 L Respiratory Rate 16 Blood Pressure 114/70 Pulse Oximetry 95 Oxygen Delivery 04/06/25 06:00 Temperature Pulse Rate 56 L Respiratory Rate Blood Pressure Pulse Oximetry Oxygen Delivery Intake/Output Intake/Output: Intake & Output 04/03/25 04/04/25 04/05/25 04/06/25 23:59 23:59 23:59 23:59 Intake Total 1762.4 1855.8 2208.7 516.0 Output Total 1850 200 Balance -87.6 1855.8 2008.7 516.0 Meds/Results Medications: Active Medications Generic Name Dose Route Start Last Admin Trade Name Freq PRN Reason Stop Dose Admin Aspirin 81 mg 04/04/25 09:00 04/05/25 09:30 Aspirin 81 Mg Enteric Tablet PO 81 mg QAM KALLIE Administration Atorvastatin Calcium 40 mg 04/03/25 09:00 04/05/25 09:30 Atorvastatin 40 Mg Tablet PO 40 mg DAILY KALLIE Administration Clopidogrel Bisulfate 75 mg 04/04/25 09:00 04/05/25 09:30 Clopidogrel Bisulfate 75 Mg Tablet PO 75 mg QAM KALLIE Administration Dextrose 12.5 gm 04/02/25 18:47 Dextrose 50% 25 Gm/50 Ml Syringe IV PUSH PRN PRN Hypoglycemia Protocol Glucagon 1 mg 04/02/25 18:47 Glucagon For Inj 1 Mg Vial IM PRN PRN Hypoglycemia Protocol Glucose 15 gm 04/02/25 18:47 Glucose Oral Gel 15 Gm Of Glucse In 37.5 Gm Tube PO PRN PRN Hypoglycemia Protocol Heparin Sodium (Porcine) 4,000 units 04/02/25 16:18 04/05/25 13:10 Heparin Sodium 5,000 Units/Ml Vial IV PUSH 4,000 units PRN PRN Administration aPTT less than 55 seconds Heparin Sodium (Porcine) 3,500 units 04/02/25 16:18 04/06/25 06:08 Heparin Sodium 5,000 Units/Ml Vial IV PUSH 3,500 units PRN PRN Administration aPTT 55 - 70 seconds Heparin Sodium/Dextrose 25,000 units in 250 mls @ 14 mls/hr 04/02/25 16:20 04/06/25 06:07 Heparin Sodium/D5w 100 Units/Ml IV CONT 1,400 units/hr .[id number] KALLIE 14 mls/hr Protocol Titration 1,400 UNITS/HR Dextrose 1,000 mls @ 100 mls/hr 04/02/25 18:47 Dextrose 5% 1,000 Ml IVPB PRN PRN Hypoglycemia Protocol Lactated Ringer's 1,000 mls @ 75 mls/hr 04/05/25 08:00 04/05/25 21:12 Lr - Lactated Ringers Iv IV CONT 75 mls/hr .[id number] KALLIE Administration Levothyroxine Sodium 25 mcg 04/03/25 06:30 04/06/25 06:08 Levothyroxine Sodium 25 Mcg Tablet PO 25 mcg DAILY@0630 KALLIE Administration Metoprolol Succinate 12.5 mg 04/03/25 09:00 04/05/25 09:31 Metoprolol Succinate Ext Rel 12.5 Mg Tabcr PO 12.5 mg QAM KALLIE Administration Nitroglycerin 0.4 mg 04/02/25 19:53 Nitroglycerin Sl 0.4 Mg Tablet SUBLINGUAL Q5MIN PRN Chest Pain Pantoprazole Sodium 20 mg 04/03/25 10:10 04/05/25 09:30 Pantoprazole Sod Sesquihydrate 20 Mg Tab PO 20 mg QAM KALLIE Administration Telmisartan 80 mg 04/03/25 09:00 04/05/25 09:31 Telmisartan 40 Mg Tablet PO 80 mg DAILY KALLIE Administration Radiology Results: ITS Impressions Chest X-Ray 04/05/25 11:14 IMPRESSION: 1: NO ACUTE CARDIOPULMONARY DISEASE. Renal Ultrasound 04/05/25 12:36 Impression: 1: Right renal cyst measuring 2.7 cm. Labs Labs: Laboratory Results - last 24 hr 04/05/25 04/05/25 04/05/25 12:12 16:57 17:05 WBC RBC Hgb Hct MCV MCH MCHC RDW Plt Count MPV Immature Gran % (Auto) Neut % (Auto) Lymph % (Auto) [place] % (Auto) Eos % (Auto) Baso % (Auto) Lymph # (Auto) [place] # (Auto) Eos # (Auto) Baso # (Auto) Abs Immat Gran (auto) Absolute Neuts (auto) Absolute Nucleated RBC Nucleated RBC % APTT 54.2 H 116.7 H Sodium Potassium Chloride Carbon Dioxide Anion Gap BUN Creatinine Estim Creat Clear Calc Estimated GFR Glucose Calcium Total Bilirubin AST ALT Alkaline Phosphatase Total Protein Albumin U Random Total Protein 7 Ur Random Sodium 83 Ur Random Potassium 63.3 04/05/25 04/06/25 23:06 04:55 WBC 8.6 RBC 4.30 L Hgb 13.6 L Hct 39.5 L MCV 91.9 MCH 31.6 MCHC 34.4 RDW 12.1 Plt Count 207 MPV 9.6 Immature Gran % (Auto) 0.7 H Neut % (Auto) 69.2 Lymph % (Auto) 16.7 L [place] % (Auto) 9.4 H Eos % (Auto) 3.3 Baso % (Auto) 0.7 Lymph # (Auto) 1.43 [place] # (Auto) 0.8 H Eos # (Auto) 0.3 Baso # (Auto) 0.1 Abs Immat Gran (auto) 0.06 H Absolute Neuts (auto) 5.9 Absolute Nucleated RBC 0.000 Nucleated RBC % 0.0 APTT 139.8 H 57.7 H Sodium 134 L Potassium 4.0 Chloride 106 Carbon Dioxide 28 Anion Gap 0 L BUN 25 H Creatinine 1.47 H Estim Creat Clear Calc 52 Estimated GFR 47 L Glucose 97 Calcium 8.6 Total Bilirubin 1.0 AST 28 ALT 20 Alkaline Phosphatase 64 Total Protein 6.0 L Albumin 3.4 L U Random Total Protein Ur Random Sodium Ur Random Potassium
--- NOTE | 2025-04-06 07:29 | P.SEDATION_ITS ---
Moderate Sedation Note-Pt Data Patient Data Allergies Allergy/AdvReac Type Severity Reaction Status Date / Time No Known Allergies Allergy Verified 04/02/25 18:31 Home Medications ?Medication ?Instructions ?Recorded ?Confirmed ?Type levothyroxine 25 mcg tablet 25 mcg PO DAILY 04/02/25 1 06/02/24 History telmisartan 80 mg tablet 80 mg PO DAILY 04/02/25 1112/28 History Current Medications: Active Medications Aspirin (Aspirin 81 Mg Enteric Tablet) [facility] Last Admin: 04/05/25 09:30 Dose: 81 mg Atorvastatin Calcium (Atorvastatin 40 Mg Tablet) 40 mg PO DAILY [facility] Last Admin: 04/05/25 09:30 Dose: 40 mg Clopidogrel Bisulfate (Clopidogrel Bisulfate 75 Mg Tablet) [facility] [place] [facility] Last Admin: 04/05/25 09:30 Dose: 75 mg Dextrose (Dextrose 50% 25 Gm/50 Ml Syringe) 12.5 gm IV PUSH PRN PRN; Protocol PRN Reason: Hypoglycemia Glucagon (Glucagon For Inj 1 Mg Vial) 1 mg IM PRN PRN; Protocol PRN Reason: Hypoglycemia Glucose (Glucose Oral Gel 15 Gm Of Glucse In 37.5 Gm Tube) 15 gm PO PRN PRN; Protocol PRN Reason: Hypoglycemia Heparin Sodium (Porcine) (Heparin Sodium 5,000 Units/Ml Vial) 4,000 units IV PUSH PRN PRN PRN Reason: aPTT less than 55 seconds Last Admin: 04/05/25 13:10 Dose: 4,000 units Heparin Sodium (Porcine) (Heparin Sodium 5,000 Units/Ml Vial) 3,500 units IV PUSH PRN PRN PRN Reason: aPTT 55 - 70 seconds Last Admin: 04/06/25 06:08 Dose: 3,500 units Heparin Sodium/Dextrose (Heparin Sodium/D5w 100 Units/Ml) 25,000 units in 250 mls @ 14 mls/hr IV CONT .[id number] [facility]; Protocol Last Titration: 04/06/25 06:07 Dose: 1,400 units/hr, 14 mls/hr Dextrose (Dextrose 5% 1,000 Ml) 1,000 mls @ 100 mls/hr IVPB PRN PRN; Protocol PRN Reason: Hypoglycemia Lactated Ringer's (Lr - Lactated Ringers Iv) 1,000 mls @ 75 mls/hr IV CONT .[id number] [facility] Last Admin: 04/05/25 21:12 Dose: 75 mls/hr Levothyroxine Sodium (Levothyroxine Sodium 25 Mcg Tablet) 25 mcg PO DAILY@0630 [facility] Last Admin: 04/06/25 06:08 Dose: 25 mcg Metoprolol Succinate (Metoprolol Succinate Ext Rel 12.5 Mg Tabcr) 12.5 mg PO [facility] Last Admin: 04/05/25 09:31 Dose: 12.5 mg Nitroglycerin (Nitroglycerin Sl 0.4 Mg Tablet) 0.4 mg SUBLINGUAL Q5MIN PRN PRN Reason: Chest Pain Pantoprazole Sodium (Pantoprazole Sod Sesquihydrate 20 Mg Tab) 20 mg PO [facility] Last Admin: 04/05/25 09:30 Dose: 20 mg Telmisartan (Telmisartan 40 Mg Tablet) 80 mg PO DAILY [facility] Last Admin: 04/05/25 09:31 Dose: 80 mg Sedation/Anesthesia: No previous sedation/anesthesia problems (including family history). [facility] Past Medical History Medical History (Updated 04/02/25 @ 23:14 by Annmarie Karimi APRN) Gastric ulcer Coffee ground emesis Acute blood loss anemia Melena No significant past medical history Surgical History Surgical History (Updated 08/24/21 @ 02:28 by Jeana Gray DO) History of left inguinal hernia repair History of umbilical hernia repair Family History Family History Mother Acute myocardial infarction, Onset Age: 49 Father , in his 70's Diabetes mellitus Peripheral vascular disease End stage renal disease on dialysis due to type 2 diabetes mellitus Sibling Acute myocardial infarction Social History Social History (Updated 08/24/21 @ 02:36 by Jeana Gray DO) Social History: Code status: Full code Surrogate decision maker: Smoking packs per day: 1.5 Smoking cigarettes per day: 30.0 Years smoked: 30 Smoking pack-years: 45.00 Smoking status: Former smoker Second hand tobacco smoke exposure: Yes Additional smoking assessment comments: pt smokes pot 4x week Alcohol intake: never Substance use: current Substance use type: marijuana Last use: 08/22/21 Lack of Transportation: No Lack of Food: Never True Current Housing: I Have Housing Concerned About Future Housing: No Difficulty Paying Gas/Electric Bills: No Difficulty Paying for Meds: No Currently Unemployed: No Education: High School Diploma/GED Difficulty w/ Childcare or Family Care: No Living arrangements: with family Additional living arrangements comments: He has 2 children and 7 grandchildren. He lives with his of 40 years. 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 Gender identity (if verbalized by the patient): Male Sexual Orientation (if Verbalized by the Patient): Straight or Heterosexual Spiritual care concerns: No Agree to blood products: Yes Mod Sed Physical Exam Physical Exam Pre Procedural Exam: Normal: Airway, Lungs, Heart Size, Heart Rate and Heart Rhythm Hours since solid foods: 12 Hours since liquid intake: 12 Mallampati Classification: class III Internal Medicine - PN: Obj Da Vital Signs Vital Signs: Vital Signs - 24 hr 04/05/25 08:00 04/05/25 08:00 04/05/25 08:00 Temperature 36.6 C Pulse Rate 60 63 Respiratory Rate 20 Blood Pressure 121/77 Pulse Oximetry 96 Oxygen Delivery Room Air 04/05/25 09:31 04/05/25 10:00 04/05/25 11:45 Temperature Pulse Rate 56 L 53 L Respiratory Rate Blood Pressure Pulse Oximetry Oxygen Delivery Room Air 04/05/25 12:00 04/05/25 12:22 04/05/25 14:00 Temperature 36.4 C L Pulse Rate 55 L 57 L 97 Respiratory Rate 18 Blood Pressure 91/57 L Pulse Oximetry 99 Oxygen Delivery 04/05/25 16:00 04/05/25 16:00 04/05/25 16:00 Temperature 36.6 C Pulse Rate 50 L 60 60 Respiratory Rate 20 20 Blood Pressure 136/83 Pulse Oximetry 97 97 Oxygen Delivery Room Air 04/05/25 18:00 04/05/25 20:00 04/05/25 20:00 Temperature 36.4 C Pulse Rate 59 L 67 60 Respiratory Rate 20 Blood Pressure 98/77 L Pulse Oximetry 100 Oxygen Delivery 04/05/25 22:00 04/06/25 00:00 04/06/25 00:00 Temperature 36.5 C Pulse Rate 50 L 55 L 49 L Respiratory Rate 18 Blood Pressure 103/56 L Pulse Oximetry 96 Oxygen Delivery 04/06/25 01:57 04/06/25 04:00 04/06/25 04:00 Temperature 36.4 C L Pulse Rate 52 L 50 L 54 L Respiratory Rate 16 Blood Pressure 114/70 Pulse Oximetry 95 Oxygen Delivery 04/06/25 06:00 Temperature Pulse Rate 56 L Respiratory Rate Blood Pressure Pulse Oximetry Oxygen Delivery Intake/Output Intake/Output: Intake & Output 04/03/25 04/04/25 04/05/25 04/06/25 23:59 23:59 23:59 23:59 Intake Total 1762.4 1855.8 2208.7 516.0 Output Total 1850 200 Balance -87.6 1855.8 2008.7 516.0 Meds/Results Medications: Active Medications Generic Name Dose Route Start Last Admin Trade Name Freq PRN Reason Stop Dose Admin Aspirin 81 mg 04/04/25 09:00 04/05/25 09:30 Aspirin 81 Mg Enteric Tablet PO 81 mg QAM KALLIE Administration Atorvastatin Calcium 40 mg 04/03/25 09:00 04/05/25 09:30 Atorvastatin 40 Mg Tablet PO 40 mg DAILY KALLIE Administration Clopidogrel Bisulfate 75 mg 04/04/25 09:00 04/05/25 09:30 Clopidogrel Bisulfate 75 Mg Tablet PO 75 mg QAM KALLIE Administration Dextrose 12.5 gm 04/02/25 18:47 Dextrose 50% 25 Gm/50 Ml Syringe IV PUSH PRN PRN Hypoglycemia Protocol Glucagon 1 mg 04/02/25 18:47 Glucagon For Inj 1 Mg Vial IM PRN PRN Hypoglycemia Protocol Glucose 15 gm 04/02/25 18:47 Glucose Oral Gel 15 Gm Of Glucse In 37.5 Gm Tube PO PRN PRN Hypoglycemia Protocol Heparin Sodium (Porcine) 4,000 units 04/02/25 16:18 04/05/25 13:10 Heparin Sodium 5,000 Units/Ml Vial IV PUSH 4,000 units PRN PRN Administration aPTT less than 55 seconds Heparin Sodium (Porcine) 3,500 units 04/02/25 16:18 04/06/25 06:08 Heparin Sodium 5,000 Units/Ml Vial IV PUSH 3,500 units PRN PRN Administration aPTT 55 - 70 seconds Heparin Sodium/Dextrose 25,000 units in 250 mls @ 14 mls/hr 04/02/25 16:20 04/06/25 06:07 Heparin Sodium/D5w 100 Units/Ml IV CONT 1,400 units/hr .[id number] KALLIE 14 mls/hr Protocol Titration 1,400 UNITS/HR Dextrose 1,000 mls @ 100 mls/hr 04/02/25 18:47 Dextrose 5% 1,000 Ml IVPB PRN PRN Hypoglycemia Protocol Lactated Ringer's 1,000 mls @ 75 mls/hr 04/05/25 08:00 04/05/25 21:12 Lr - Lactated Ringers Iv IV CONT 75 mls/hr .[id number] KALLIE Administration Levothyroxine Sodium 25 mcg 04/03/25 06:30 04/06/25 06:08 Levothyroxine Sodium 25 Mcg Tablet PO 25 mcg DAILY@0630 KALLIE Administration Metoprolol Succinate 12.5 mg 04/03/25 09:00 04/05/25 09:31 Metoprolol Succinate Ext Rel 12.5 Mg Tabcr PO 12.5 mg QAM KALLIE Administration Nitroglycerin 0.4 mg 04/02/25 19:53 Nitroglycerin Sl 0.4 Mg Tablet SUBLINGUAL Q5MIN PRN Chest Pain Pantoprazole Sodium 20 mg 04/03/25 10:10 04/05/25 09:30 Pantoprazole Sod Sesquihydrate 20 Mg Tab PO 20 mg QAM KALLIE Administration Telmisartan 80 mg 04/03/25 09:00 04/05/25 09:31 Telmisartan 40 Mg Tablet PO 80 mg DAILY KALLIE Administration Radiology Results: ITS Impressions Chest X-Ray 04/05/25 11:14 IMPRESSION: 1: NO ACUTE CARDIOPULMONARY DISEASE. Renal Ultrasound 04/05/25 12:36 Impression: 1: Right renal cyst measuring 2.7 cm. Labs 04/06/25 04:55 04/06/25 04:55 Labs: Laboratory Results - last 24 hr 04/05/25 04/05/25 04/05/25 12:12 16:57 17:05 WBC RBC Hgb Hct MCV MCH MCHC RDW Plt Count MPV Immature Gran % (Auto) Neut % (Auto) Lymph % (Auto) [place] % (Auto) Eos % (Auto) Baso % (Auto) Lymph # (Auto) [place] # (Auto) Eos # (Auto) Baso # (Auto) Abs Immat Gran (auto) Absolute Neuts (auto) Absolute Nucleated RBC Nucleated RBC % APTT 54.2 H 116.7 H Sodium Potassium Chloride Carbon Dioxide Anion Gap BUN Creatinine Estim Creat Clear Calc Estimated GFR Glucose Calcium Total Bilirubin AST ALT Alkaline Phosphatase Total Protein Albumin U Random Total Protein 7 Ur Random Sodium 83 Ur Random Potassium 63.3 04/05/25 04/06/25 23:06 04:55 WBC 8.6 RBC 4.30 L Hgb 13.6 L Hct 39.5 L MCV 91.9 MCH 31.6 MCHC 34.4 RDW 12.1 Plt Count 207 MPV 9.6 Immature Gran % (Auto) 0.7 H Neut % (Auto) 69.2 Lymph % (Auto) 16.7 L [place] % (Auto) 9.4 H Eos % (Auto) 3.3 Baso % (Auto) 0.7 Lymph # (Auto) 1.43 [place] # (Auto) 0.8 H Eos # (Auto) 0.3 Baso # (Auto) 0.1 Abs Immat Gran (auto) 0.06 H Absolute Neuts (auto) 5.9 Absolute Nucleated RBC 0.000 Nucleated RBC % 0.0 APTT 139.8 H 57.7 H Sodium 134 L Potassium 4.0 Chloride 106 Carbon Dioxide 28 Anion Gap 0 L BUN 25 H Creatinine 1.47 H Estim Creat Clear Calc 52 Estimated GFR 47 L Glucose 97 Calcium 8.6 Total Bilirubin 1.0 AST 28 ALT 20 Alkaline Phosphatase 64 Total Protein 6.0 L Albumin 3.4 L U Random Total Protein Ur Random Sodium Ur Random Potassium ASA Classification/Sedation ASA Classification/Sedation ASA Class: III Emergent: No Risks: Risks, benefits and alternatives explained and patient/family accepted plan for sedation. Patient re-evaluated immediately prior to sedation.
--- NOTE | 2025-04-06 07:29 | WPDHPUPDATE1 ---
History and Physical Update Update Date/Time: 04/06/25 07:29 History and Physical has been reviewed, including an updated exam of the patient. There are NO changes in the patient's condition. Risks, benefits, and alternatives have been discussed and questions answered. Patient agrees to proceed with procedure.
--- NOTE | 2025-04-06 07:29 | WPDCARDPROC ---
Cardiac Cath Procedure Note Date of procedure:: 04/06/25 Performing physician:: Kerry Farfan MD Indication:: CATHETERIZATION LABORATORY REPORT Procedure Date: 04/06/2025 Anesthesia: Versed and Fentanyl were ordered and given in my presence at 8:28 a.m., procedure ended at 8:52 a.m.. Supervision of nurse monitored moderate sedation with Versed and Fentanyl was provided for 24 minutes. Fentanyl: 100 mcg Versed: 1 mg Pre-op Diagnosis: NSTEMI Post-op Diagnosis: NSTEMI Obstructive CAD-90% stenosis distal LAD which appears to be the culprit for patient's presentation. This corroborates with the hypokinesis of the apex noted on TTE. No intervention performed as lesion is very distal, vessel is very tortuous and smaller than 2 mm at this lesion. There is also 80% stenosis in the distal LCX at the OM takeoff. This lesion appears chronic and does not appear to be the cause of patient's presentation. No intervention performed as vessel is very tortuous and less than 2 mm in size. He also has nonobstructive CAD with 60% stenosis in distal RCA, 30% stenosis in proximal LAD, 50% stenosis at the ostium of a small 1st diagonal, 40% stenosis in proximal RCA. Procedure(s): Ultrasound-guided right radial artery access Left heart catheterization with coronary angiography Access Site: Right radial artery Brief History and Clinical Indications: All risks, benefits and alternatives to left heart catheterization with or without percutaneous coronary intervention was discussed at length with the patient. Risk of complications including but not limited to bleeding, infection, arrhythmia, stroke, worsening kidney function, blood loss, groin hematoma, limb loss, emergency coronary artery bypass grafting, and even were discussed with the patient and all questions were answered. The patient understood and wished to proceed. Time out called, patient name, date of , medical record number, allergies, procedure performed, identify Air Analysis Engineering Technician, patient and staff member concurred with accurate data, procedure carried on. Findings: LEFT HEART CATHETERIZATION FINDINGS: 1. Left main: The left main coronary artery is widely patent without any significant obstructive disease. 2. Left anterior descending: The LAD and the diagonal branches have mild luminal irregularities without any significant obstructive angiographic disease. 3. Left circumflex: The left circumflex artery and the main marginal branches have mild luminal irregularities without any significant obstructive angiographic disease. 4. Right coronary artery: The RCA has mild luminal irregularities without any significant obstructive angiographic disease. The RCA is the dominant vessel. 5. Left ventricle: A. End-diastolic pressure 9 mmHg. B. LV gram deferred. C. No significant gradient across aortic valve on catheter pullback. 6. Opening AO pressure 87/57/72 and closing AO pressure 84/61/70 3 mm Hg Description of Procedure: Informed consent signed and placed in the chart. Patient transferred to laborer tanbark room. Prepped and draped in usual sterile fashion. 2% lidocaine injected subcutaneously in right wrist area. 22-gauge venipuncture catheter used to access the right radial artery with the Seldinger technique. 6-FR slender sheath placed in right radial artery. Nitroglycerin 200mcg, Verapamil 2.5mg, and Heparin 5000U was given intraarterial through the sheath. J wire advanced under fluoroscopy 5 Monegasque JL 3.5 diagnostic catheter engaged Left Main Coronary Artery. 5 M[place]gasque JR4 diagnostic catheter engaged Right Coronary Artery Multiple orthogonal angiogram obtained and reviewed 5 M[place]gasque JR4 diagnostic catheter crossed aortic valve to obtain LVEDP, LV angiogram deferred. Hemostasis was achieved by application of TR band. Assessment: NSTEMI Obstructive CAD-90% stenosis distal LAD which appears to be the culprit for patient's presentation. This corroborates with the hypokinesis of the apex noted on TTE. No intervention performed as lesion is very distal, vessel is very tortuous and smaller than 2 mm at this lesion. There is also 80% stenosis in the distal LCX at the OM takeoff. This lesion appears chronic and does not appear to be the cause of patient's presentation. No intervention performed as vessel is very tortuous and less than 2 mm in size. He also has nonobstructive CAD with 60% stenosis in distal RCA, 30% stenosis in proximal LAD, 50% stenosis at the ostium of a small 1st diagonal, 40% stenosis in proximal RCA. Post Operative Condition: Stable No significant blood loss Disposition: Floor Plan: The patient will be monitored in the recovery area. TR band removal per protocol. IV fluids normal saline at 100 mL/hour for 500 mL. DAPT with aspirin 81 mg daily and Plavix 75 mg daily for 1 year followed by ASA 81 mg daily indefinitely. Continue aggressive medical therapy and risk factor modification. Kerry Farfan MD, MS, FACC, FSCAI Interventional Cardiology
[2025-04-06] MEDS: SODIUM CHLORIDE 0.9% IV 1,000 ML 100 ML IV CONT (10:29)
--- NOTE | 2025-04-06 12:51 | PC.NURSE ---
Arrived back to the floor via wheelchair s/p cardiac cath. Alert and oriented at this time. Pulse in right arm palpable. No acute distress noted at this time.
--- NOTE | 2025-04-06 13:45 | P.DS_ITS ---
DS: Admitting Diagnosis Discharge Date 04/06/25 Admitting Diagnosis NSTEMI DS: Discharge Diagnosis Discharge Diagnosis (1) Acute non-ST elevation myocardial infarction (NSTEMI): Code(s): I21.4 - Non-ST elevation (NSTEMI) myocardial infarction Status: Acute Assessment and Plan: Sharp pain to his left chest with some associated tingling to his left hand. Pain briefly subsided before returning with associated diaphoresis and left arm heaviness. Patient did vomit. - EKG, initial: read by ED provider reads normal sinus rhythm with normal axis. PA normal. QRS duration normal. QTc normal. No pathologic Q waves. No ST segment elevation or depression to suggest acute ischemia. No RV strain pattern. BUN 29, BNP 344. - EKG, repeat (1): Sinus rhythm, incomplete right BBB - CXR: No acute cardiopulmonary process - Troponin: 0.561 -1.930-3.550 - 324 ASA with EMS - SL nitro PRN - cardiology consulted: cath 04/05, also started aspirin, clopidogrel, and PPI as patient has history of GI bleed 3 years ago. - started on heparin gtt - start atorvastatin 40 mg daily - lipid panel pending - telemetry monitoring -cath positive for 90% stenosis distal LAD. No intervention was performed as the lesion was very distal, this was very tortuous, smaller than 2 mm. 80% stenosis also identified and distal left circumflex which appears chronic and does not appear to be causal of presentation. Vessel was also very tortuous at least 2 mm stone no intervention was performed. Nonobstructive CAD with 60% stenosis in distal RCA, 30% stenosis in proximal LAD, 50% stenosis at the ostium of the 1st small diagonal, 40% stenosis in proximal RCA. Recommendation was dual antiplatelet therapy with aspirin and clopidogrel for 1 year followed by aspirin daily indefinitely with aggressive medical therapy/risk factor modification. -will continue PPI in outpatient setting given prior history of GI bleed (2) CKD (chronic kidney disease): Code(s): N18.9 - Chronic kidney disease, unspecified Status: Acute Assessment and Plan: Patient had stable/normal creatinine on admission of was creeping up, this temporarily halted cardiac catheterization being performed to to concern for FLAKO. However on additional review of prior labs, patient does appear to have stable CKD and ranges in the 1.5 creatinine area. As such Cardiology decided to continue with catheterization, results as above -patient to benefit trending renal function post catheterization -will order outpatient labs to be performed 1 week after discharge -follow-up with PCP to consider nephrology evaluation if needed (3) Hypertension: Qualifiers: Hypertension type: primary hypertension Qualified Code(s): I10 - Essential (primary) hypertension Code(s): I10 - Essential (primary) hypertension Status: Chronic Assessment and Plan: On telmisartan, continue (4) Hypothyroidism: Qualifiers: Hypothyroidism type: unspecified Qualified Code(s): E03.9 - Hypothyroidism, unspecified Code(s): E03.9 - Hypothyroidism, unspecified Status: Chronic Assessment and Plan: On levothyroxine, continue DS: Summary Hospital Course Hospital Course: Patient was admitted for NSTEMI, spent weekend on heparin drip, without significant further cardiac events. Hospitalization and cardiac catheterization was complicated by presence of elevated creatinine, initially noted as concern for FLAKO as patient did not have prior creatinine values in [facility] charts. On further evaluation however, prior labs provided by patient do confirm patient has CKD and not FLAKO, and 1.5 creatinine which was noted during hospitalization is his baseline. As such cardiac catheterization was done, results as above (see NSTEMI assessment plan). Patient was stable for discharge at this time. Status at Discharge Cognitive/behavioral status at discharge: Stable Time Spent with Patient Time attestation: Total time spent providing and/or coordinating discharge services: Exam Narrative: GENERAL: non-toxic appearing, in no acute distress. HEAD: Normocephalic, atraumatic. EYES: PERRLA. Conjunctivae clear. NOSE: Normal no drainage. THROAT: Pharynx clear, no exudate. NECK: Trachea midline. No adenopathy, no masses. RESPIRATORY: Airway patent, respirations nonlabored. CTA. CARDIOVASCULAR: Regular rate and rhythm GASTROINTESTINAL: Abdomen is soft and nontender. No organomegaly. Bowel sounds normal in all quadrants. GENITOURINARY: Defer MUSCULOSKELETAL: Moves all extremities. No gross deformities. SKIN: Warm, dry, normal color. NEURO: A&O X4. Speech clear PSYCHIATRIC: Normal interaction DS: Data Data Completed and Pending Labs on day of discharge: Labs from last 24 hours 04/06/25 04/05/25 04/05/25 04:55 23:06 17:05 WBC 8.6 RBC 4.30 L Hgb 13.6 L Hct 39.5 L MCV 91.9 MCH 31.6 MCHC 34.4 RDW 12.1 Plt Count 207 MPV 9.6 Immature Gran % (Auto) 0.7 H Neut % (Auto) 69.2 Lymph % (Auto) 16.7 L [place] % (Auto) 9.4 H Eos % (Auto) 3.3 Baso % (Auto) 0.7 Lymph # (Auto) 1.43 [place] # (Auto) 0.8 H Eos # (Auto) 0.3 Baso # (Auto) 0.1 Abs Immat Gran (auto) 0.06 H Absolute Neuts (auto) 5.9 Absolute Nucleated RBC 0.000 Nucleated RBC % 0.0 APTT 57.7 H 139.8 H 116.7 H Sodium 134 L Potassium 4.0 Chloride 106 Carbon Dioxide 28 Anion Gap 0 L BUN 25 H Creatinine 1.47 H Estim Creat Clear Calc 52 Estimated GFR 47 L Glucose 97 Calcium 8.6 Total Bilirubin 1.0 AST 28 ALT 20 Alkaline Phosphatase 64 Total Protein 6.0 L Albumin 3.4 L Ur Random Creatinine U Random Total Protein Ur Random Sodium Ur Random Potassium 04/05/25 16:57 WBC RBC Hgb Hct MCV MCH MCHC RDW Plt Count MPV Immature Gran % (Auto) Neut % (Auto) Lymph % (Auto) [place] % (Auto) Eos % (Auto) Baso % (Auto) Lymph # (Auto) [place] # (Auto) Eos # (Auto) Baso # (Auto) Abs Immat Gran (auto) Absolute Neuts (auto) Absolute Nucleated RBC Nucleated RBC % APTT Sodium Potassium Chloride Carbon Dioxide Anion Gap BUN Creatinine Estim Creat Clear Calc Estimated GFR Glucose Calcium Total Bilirubin AST ALT Alkaline Phosphatase Total Protein Albumin Ur Random Creatinine 174.2 U Random Total Protein 7 Ur Random Sodium 83 Ur Random Potassium 63.3 Discharge Plan Discharge Attending physician on discharge: Phong Zarate Oca Consulting providers: Almas Rahman Discharging Clinician: Phong Zarate Oca Patient Disposition: Home Activity: as tolerated Diet: heart healthy Discharge Instructions: Continue aspirin and Plavix therapy daily for 1 year. Stop Plavix and continue aspirin indefinitely thereafter. Follow-up with cardiology in 1 month. Follow-up with PCP in 1 week, obtain labs at that time to follow up on kidney function. Patient Instructions: Antibiotic Form Patient Language: Romanian Stand Alone Forms: General Discharge Information Follow-up/Referrals: Almas Rahman MD [Physician, Cardiology] - 4 Weeks Vishal,[place] MD [Primary Care Provider] - 1 Week Discharge Medications: New aspirin 81 mg Tablet,Delayed Release (Dr/Ec) 81 mg PO QAM 30 Days Qty: 30 0RF clopidogrel 75 mg Tablet 75 mg PO QAM 30 Days Qty: 30 0RF nitroglycerin [Nitrostat] 0.4 mg Tablet, Sublingual 0.4 mg sublingual Q5MIN PRN (Reason: Chest Pain) 30 Days Qty: 30 0RF atorvastatin 40 mg Tablet 40 mg PO DAILY 30 Days Qty: 30 0RF metoprolol succinate [Toprol XL] 25 mg tablet extended release 24 hr 12.5 mg PO QAM 30 Days Qty: 15 0RF pantoprazole [Protonix] 20 mg Tablet,Delayed Release (Dr/Ec) 20 mg PO QAM 30 Days Qty: 30 0RF metoprolol succinate [Toprol XL] 25 mg tablet extended release 24 hr 12.5 mg PO QAM 30 Days Qty: 15 0RF Continued levothyroxine 25 mcg tablet 25 mcg PO DAILY 30 Days Qty: 0 0RF telmisartan 80 mg tablet 80 mg PO DAILY 30 Days Qty: 0 0RF Other Ambulatory Orders: Basic Metabolic Panel (Routine) Timeframe: 1 Week Location: Determined by Patient Ordered By: Phong flanagan Oca Date of admission: 04/02/25 16:42 Primary Care Provider: Rodger,[place] Admitting Provider: Gabe Hernandez Attending physician on admission: Gabe Hernandez Condition: Serious Hospitalist MIPS Heart Failure (Exclusion) Patient has history of Heart Transplant or Left Ventricular Assistive Device?: No IF YES, STOP HERE Heart Failure (Qualifier) Patient has current or prior documentation of LVEF less than or equal to 40%, or mod/servere depressed LVSF?: No IF NO, STOP HERE
--- NOTE | 2025-04-06 14:34 | PC.NURSE ---
Reviewed discharge instructions with patient and family member. Denies further questions at this time. IV's removed intact and color television console monitor removed. No acute distress noted.
== END 2025-04-06 14:33 | disposition home or self-care (01) | DRG 282 ==
LOC: ANHED 16:06 → ANHIMU 17:22
PROVIDERS: Internal Medicine Interventional Cardiology; Nurse Practitioner; Nurse Practitioner Adult Health; Specialist; Admitting Provider Internal Medicine; Emergency Provider Emergency Medicine; PCP Internal Medicine; Visit Provider Student in an Organized Health Care Education/Training Program
PROC: 4A023N7 Measurement of Cardiac Sampling and Pressure, Left Heart, Percutaneous Approach (ICD-10-PCS; CPT 93452; principal; 2025-04-06 07:35)
DX: I21.4 Non-ST elevation (NSTEMI) myocardial infarction (principal); I12.9 Hypertensive chronic kidney disease with stage 1 through stage 4 chronic kidney disease, or unspecified chronic kidney disease; N18.9 Chronic kidney disease, unspecified; E03.9 Hypothyroidism, unspecified; Z87.891 Personal history of nicotine dependence; K25.9 Gastric ulcer, unspecified as acute or chronic, without hemorrhage or perforation
CPT/HCPCS: 36415; 71045; 76770; 80048; 80053; 80061; 81050; 82570; 83036; 83880; 84133; 84156; 84300; 84484; 85025; 85610; 85730; 93005; 93458; 96374; 99291; A9270; C1769; C1887; C1894; C8929; J1644; J2003; J2250; J3010; J7030; J7040; J7120; Q9957